=== PATIENT | female | born 1970 | race Caucasian/White ===

== ENCOUNTER 2016-08-04 16:08 | Emergency (ER) | payer MEDICARE ==
[~2016-08-04 16:08] MED LIST: CIPR-225 PO
== END 2016-08-04 16:43 | disposition left against medical advice (07) ==
LOC: EDUNIT# 16:08 → ER 16:10
DX: R10.30 Lower abdominal pain, unspecified (principal); Z53.21 Procedure and treatment not carried out due to patient leaving prior to being seen by health care provider

== ENCOUNTER 2017-04-19 18:15 | Emergency (ER) | payer MEDICARE, MEDICAID ==
[~2017-04-19] VITALS: Ht 160 cm; Wt 96.2 kg
--- OUTSIDE RECORDS SUMMARY | 2017-04-19 18:21 | XMS REPORT | Continuity Of Care Document ---
Author Author [facility] Organization [facility] Address [address] [place] [address] Phone Care Team Providers Care Hot Air Furnace Installer Repairer Name Role Phone Unavailable Unavailable AMIRAH LORENZO, SAMARA Mendez AT Results Results No results recorded. Allergies and Adverse Reactions Allergies and Adverse Reactions Patient Unit Number: [id number] No allergies recorded. Problem List Problem List No problem list recorded. Plan of Care Plan Of Care Visit/Account #[id number] (April 08, 2017 3:26pm - April 08, 2017 4:08pm) Patient Instructions Wear orthopedic shoe whenever you're. Stay off your feet as much as possible. Keep foot elevated whenever you're seated. Apply ice for 15 minutes 3 times a day. Take anti-inflammatory as prescribed. Vital Signs Vital Signs No Vital Signs Data. Functional Status Functional and Cognitive Status No Functional Status Data Medications Discharge Medications - Medications that patient should continue to take. Review with physician Visit/Account #[id number] (April 08, 2017 3:26pm - April 08, 2017 4:08pm) Medication Route Sig/Schedule Precondition/Indication Comments/Instructions Codes NAPROSYN(NAPROXEN) 500 MG TABLET Dose: 500 MG ORAL BID PAIN NAPROSYN (NAPROXEN) [facility]: [id number] History Of Encounters Encounters Visit/Account #[id number] (April 08, 2017 3:26pm - April 08, 2017 4:08pm) Account Status Physican Of Record Reason For Visit Visit Diagnosis Start Date/Time Stop Date/Time ER SAMARA MACARIO MD R FOOT INJURY Not Available Apr 08, 2017 3:26pm Apr 08, 2017 4:08pm History of Procedures Procedure List No procedures recorded. Discharge Instructions Discharge Instructions Visit/Account #[id number] (April 08, 2017 3:26pm - April 08, 2017 4:08pm) DISCHARGE INSTRUCTIONS Physician Documentation Social History Social History No Social History Data. Immunizations Immunizations Patient Unit Number: [id number] Immunizations No immunizations recorded.
--- OUTSIDE RECORDS SUMMARY | 2017-04-19 18:21 | XMS REPORT ---
Author Author OFELIA ALCARAZ [facility] eClinicalWorks Address Unknown Phone Unavailable Care Team Providers Care Mult Au Matic Operator Name Role Phone OFELIA ALCARAZ CP Unavailable Allergies, Adverse Reactions, Alerts Substance Reaction Event Type Sulfamethoxazole-Trimethoprim Info Not Available Drug Allergy Penicillin V Potassium Info Not Available Drug Allergy Problems Problem Type Condition Code Onset Dates Condition Status Assessment Environmental allergies Z91.09 Active Assessment Drug abuse and dependence F19.20 Active Assessment Hypercholesterolemia E78.0 Active Problem Environmental allergies Z91.09 Active Problem Essential hypertension I10 Active Problem Hypercholesterolemia E78.0 Active Assessment Bipolar disorder with depression F31.30 Active Assessment Essential hypertension I10 Active Problem Bipolar disorder with depression F31.30 Active Problem Drug abuse and dependence F19.20 Active Medications Medication Code System Code Instructions Start Date End Date Status Dosage Atorvastatin Calcium [facility] [address]-78 10 mg Orally Once a day January 10, 2016 1 tablet Lisinopril-Hydrochlorothiazide [facility] [address]-46 20-25 MG Orally Once a day January 09, 2016 1 tablet Zyrtec Allergy [facility] [address]-98 10 mg Orally Once a day January 23, 2016 Mar 23, 2016 1 tablet Trazodone HCl [facility] [address]-75 150 MG Orally Once a day 1/2 tablet at bedtime as needed Latuda [facility] [address]-56 40 MG Orally Once a day 1 tablet with food Procedures Procedure Coding System Code Date Office Visit, Est Pt., Level 4 CPT-4 59612 January 23, 2016 Vital Signs Date/Time: January 23, 2016 Cardiac Monitoring Heart Rate 70 bpm Weight 197 lbs Height 63 in Blood Pressure Diastolic 78 mmHg Blood Pressure Systolic 132 mmHg Results No Known Results Summary Purpose eClinicalWorks Submission
--- OUTSIDE RECORDS SUMMARY | 2017-04-19 18:21 | XMS REPORT ---
Author Author REESE CORDOVA [facility] eClinicalWorks Address Unknown Phone Unavailable Care Team Providers Care Print Journalist Name Role Phone REESE CORDOVA CP Unavailable Allergies, Adverse Reactions, Alerts Substance Reaction Event Type Sulfamethoxazole-Trimethoprim Info Not Available Drug Allergy Penicillin V Potassium Info Not Available Drug Allergy Problems Problem Type Condition Code Onset Dates Condition Status Problem Drug abuse and dependence F19.20 Active Assessment COPD with acute exacerbation J44.1 Active Problem Acute serous otitis media of left ear, recurrence not specified H65.02 Active Problem Acute diffuse otitis externa of left ear H60.312 Active Problem COPD with acute exacerbation J44.1 Active Problem Essential hypertension I10 Active Problem Bipolar disorder with depression F31.30 Active Problem Hypercholesterolemia E78.0 Active Problem Environmental allergies Z91.09 Active Medications Medication Code System Code Instructions Start Date End Date Status Dosage Lisinopril-Hydrochlorothiazide [facility] [address]-70 20-25 MG Orally Once a day January 09, 2016 1 tablet Cortisporin [facility] [address]-68 3.5-70488-9 Otic Three times a day January 30, 2016 4 drops into affected ear Keflex [facility] [address]-64 500 MG Orally Twice a day January 30, 2016 Feb 09, 2016 1 capsule Atorvastatin Calcium [facility] [address]-34 10 mg Orally Once a day January 10, 2016 1 tablet Abilify [facility] [address]-54 10 MG Orally Once a day 1 tablet Albuterol Sulfate HFA [facility] [address]-02 108 (90 Base) MCG/ACT Inhalation every 4 hrs PRN SOB, wheezing Feb 04, 2016 2 puffs as needed Ketorolac Tromethamine [facility] [address]-59 10 mg Orally 3 times a day JanuaryFeb 05, 2016 1 tablet as needed Zyrtec Allergy [facility] [address]-28 10 mg Orally Once a day January 23, 2016 Mar 23, 2016 1 tablet Procedures Procedure Coding System Code Date Office Visit, Est Pt., Level 4 CPT-4 06091 Feb 04, 2016 [facility] VISIT ESTABLISHED PATIENT CPT-4 G0467 Feb 04, 2016 Vital Signs Date/Time: Feb 04, 2016 Cardiac Monitoring Heart Rate 96 bpm Weight 206.6 lbs Height 63 in BMI 36.59 Index Blood Pressure Diastolic 73 mmHg Blood Pressure Systolic 152 mmHg Results No Known Results Summary Purpose eClinicalWorks Submission
--- OUTSIDE RECORDS SUMMARY | 2017-04-19 18:21 | XMS REPORT ---
Author Author OFELIA ALCARAZ [facility] Address [address] [place] [address] Care Team Providers Care Custom Shoe Designer And Maker Name Role Phone ROMINA ALCARAZE Unavailable PROBLEMS Type Condition ICD9-CM Code [id number] Code Onset Dates Condition Status SNOMED Code Problem Acute serous otitis media of left ear, recurrence not specified H65.02 Active 604563520 Problem COPD with acute exacerbation J44.1 Active 986997857 Problem Acute diffuse otitis externa of left ear H60.312 Active 86918077 Problem Hyperlipidemia, unspecified hyperlipidemia type E78.5 Active 17052039 Problem Simple chronic bronchitis J41.0 Active 16769141 Problem Primary insomnia F51.01 Active 3145832 Problem Phlebitis I80.9 Active 03115518 Problem Nausea and vomiting, intractability of vomiting not specified, unspecified vomiting type R11.2 Active 02310730 Problem Open wound anterior abdominal wall, initial encounter S31.109A Active 799372483 Problem Bipolar disorder with depression F31.30 Active 08211257 Problem Drug abuse and dependence F19.20 Active 6890665 Problem Essential hypertension I10 Active 96423901 Problem Pure hypercholesterolemia E78.00 Active 257962525 Problem Environmental allergies Z91.09 Active 663242449 ALLERGIES Substance Reaction Event Type Date Status Sulfamethoxazole-Trimethoprim Unknown Drug Allergy Jul, Active Penicillin V Potassium Unknown Drug Allergy Jul, Active SOCIAL HISTORY No smoking Hx information available PLAN OF CARE Activity Details Follow Up 2 Weeks Reason:diaerrhea Pending Test ROTAVIRUS, STOOL Pending Test CULTURE, STOOL Pending Test STOOL (O & P) Pending Test GIARDIA, STOOL Pending Test STOOL (C-DIFF) VITAL SIGNS Height 63 in 2016-07-24 Weight 219.2 lbs 2016-07-24 Temperature 98.3 degrees Fahrenheit 2016-07-24 Heart Rate 108 bpm 2016-07-24 Respiratory Rate 20 2016-07-24 BMI 38.83 kg/m2 2016-07-24 Blood pressure systolic 142 mmHg 2016-07-24 Blood pressure diastolic 91 mmHg 2016-07-24 MEDICATIONS Medication Instructions Dosage Frequency Start Date End Date Duration Status Atorvastatin Calcium 10 mg Orally Once a day, voucher 1st fill 1 tablet 30 Active Amitriptyline HCl 10 mg Orally Once a day 3 capsules 24h Active Lisinopril-Hydrochlorothiazide 20-25 MG Orally Once a day, voucher 1st fill 1 tablet 30 Active Colestid 1 GM Orally Once a day 2 tablets 24h Jul, 30 day(s) Active immodium 1 tab Active Albuterol Sulfate HFA 108 (90 Base) MCG/ACT Inhalation every 4 hrs PRN SOB, wheezing 2 puffs as needed Feb, Active RESULTS Name Result Date Reference Range TEST, URINE (IN HOUSE) 2016-07-24 RESULTS Negative Lot # [id number] Control + Exp date UA LONG DIP (IN HOUSE) 2016-07-24 Lot # [id number] Exp date Clarity Clear Color Yellow Odor No GLU Negative ASHISH Negative KET Negative SG >=1.030 BLO Negative pH 5.5 Protein Negative URO 0.2 NIT Negative CHRISTINA Trace Lot # [id number] Exp date 02/2017 CULTURE, URINE 2016-07-24 Urine Culture, Routine Final report Result 1 No growth PROCEDURES Procedure Date Ordered Related Diagnosis [facility] GIARDIA AG, EIA Jul 24, 2016 URINE TEST Jul 24, 2016 URINALYSIS, AUTO, W/O SCOPE Jul 24, 2016 ROTAVIRUS AG, EIA Jul 24, 2016 Office Visit, Est Pt., Level 4 Jul 24, 2016 [facility] VISIT ESTABLISHED PATIENT Jul 24, 2016 IMMUNIZATIONS No Known Immunizations
--- OUTSIDE RECORDS SUMMARY | 2017-04-19 18:21 | XMS REPORT | Continuity of Care Document ---
Author Author [facility] Address Unknown Phone Unavailable Care Team Providers Care Production Crew Supervisor Name Role Phone KILEY Angela Unavailable Unavailable Insurance Providers Payer Name Policy Number Subscriber Name Relationship MCR Medicare [id number] TERRI HAWKINS PATIENT/SELF [facility] [id number] TERRI HAWKINS PATIENT/SELF Advance Directives Directive Response Recorded Date/Time Advance Directive Information: AD BROCHURE GIVEN TO PT 03/28/15 3:29pm Chief Complaint and Reason for Visit Reason for Visit Infestation by Sarcoptes scabiei Problems Medical Problems Problem Onset Date Status TMJ arthralgia Unknown Active Headache Unknown Active Migraine headache Unknown Active Sinusitis Unknown Active Methamphetamine dependence Unknown Active Otitis media Unknown Active Shoulder sprain Unknown Active Neck sprain Unknown Active Scabies infestation Unknown Active Medications Medication Dose Route Sig Days/Qty Instructions Order Date Discontinued Date Status Olanzapine 10 MG TABLET OPHTHALMIC Bedtime 12/13/13 Discontinued Atenolol (Tenormin) 25 MG TABLET OPHTHALMIC MORNING TAKE WITH SIP OF WATER AM OF PROCEDURE Active Lisinopril/Hydrochlorothiazide (Lisinopril-Hctz 20-25 MG Tab) 1 EACH TABLET OPHTHALMIC MORNING TAKE WITH SIP OF WATER AM OF PROCEDURE Active Fluoxetine (Prozac) 10 MG TAB OPHTHALMIC MORNING 12/13/13 Discontinued Simvastatin* (Zocor*) 10 MG TABLET 10 MG OPHTHALMIC Bedtime Discontinued Lurasidone HCl (Latuda) 40 MG TABLET 40 MG OPHTHALMIC Bedtime 01/17 Discontinued Quetiapine* (Seroquel*) 12.5 MG HALFTAB 25 MG Bedtime 09/09/14 Discontinued Clonidine (Catapres) 0.1 MG TAB 0.1 MG OPHTHALMIC 09/09/14 Discontinued [ABILIFY] 400 MONTHLY MONTHLY INJECTION Active Azithromycin* (Zithromax*) 250 MG TAB 250 MG OPHTHALMIC DIRECTED 6 Qty TAKE 2 TABLETS ONCE DAILY FOR 1 DAY, THEN 1 TABLET ONCE DAILY FOR 4 DAYS. 02/04 Active Cyclobenzaprine (Flexeril Tab) 10 MG TAB 1 TAB OPHTHALMIC Q8H PRN PRN PAIN 15 Qty 03/20/15 Active Permethrin (Nix) 60 ML LIQUID 60 ML TOPICAL ONE TIME ONLY 1 Days Active Diphenhydramine (Benadryl) 25 MG CAP 25 MG OPHTHALMIC THREE TIMES DAILY 15 Qty 03/28/15 Active Ranitidine (Zantac) 75 MG TABLET 150 MG OPHTHALMIC TWICE DAILY 5 Days 03/28/15 Active Prednisone 10 MG UD.TAB 2 TAB OPHTHALMIC TWICE DAILY 20 Qty 03/28/15 Active Social History Social History Problem Response Recorded Date/Time Alcohol Use occasionally 01/07/14 8:26pm Drug Use clean for 45 days, getting ready to go to treatment. 03/20/15 1:31pm Hospital Discharge Instructions No hospital discharge instructions. Plan of Care Discharge Date 03/28/15 4:15pm Disposition NURSING HOME Condition at Discharge Stable Instructions/Education Provided DI for Scabies Prescriptions See Medications Section Referrals Jodi Angela APRN Additional Instructions/Education TAKE MEDS RX'D. KEEP THE NIX LOTION ON FOR 24 HRS WITHOUT BATHING OR SHOWERING, THEN REPEAT IN 1 WEEK. FOLLOW UP WITH PCP OR [facility], RETURN IF WORSE OR NEEDED Care Plan and Goals Problem: Skin Integrity Issue Goal: Rule out or identify any skin integrity issue. Relief of pain, discomfort. Plan: Refer to patient instructions provided. Functional Status No functional status results. Allergies, Adverse Reactions, Alerts Allergen Type Severity Reaction Status Last Updated PENICILLINS Allergy Unknown HIVES, THROAT SWELLING Active 09/09/14 SULFA (SULFONAMIDE ANTIBIOTICS) Allergy Unknown HIVES Active 09/09/14 INFLUENZA VIRUS VACC,SPECIFIC Allergy Unknown Active 09/09/14 SHELLFISH DERIVED Allergy Unknown Active 09/09/14 FLU SHOT AdvReac Unknown "DEATHLY SICK" Active 12/10/12 Immunizations Name Date Given Type *Flu Shot: None Historical *Tetanus Shot: Unknown Historical Vital Signs Vital Reading Collection Date/Time Result Blood Pressure 03/28/15 3:29pm 148/91 Patient Temperature 03/28/15 3:29pm 98.7 Temperature Source 03/28/15 3:29pm TEMP Respiratory Rate 03/28/15 3:29pm 18 Pulse Rate 03/28/15 3:29pm 85 Bedside Pulse Oximetry 03/28/15 3:29pm 98 Height 03/28/15 3:29pm 5 ft 3 in Weight 03/28/15 3:29pm 160 lb Body Mass Index 03/28/15 3:29pm 28.3 Procedures No Known History of Procedures. Results Test Source Date Result Interp. Ref. Range Comments Basophils # 02/04/15 0.1 10^3/uL 0.0 - 0.2 Basophils % 02/04/15 0.6 % 0.0 - 2.0 Eosinophils # 02/04/15 0.3 10^3/uL 0.0 - 0.4 Eosinophils % 02/04/15 2.5 % 0.0 - 6.0 Hematocrit 02/04/15 38.9 % 36 - 48 Hemoglobin 02/04/15 12.7 g/dl 12.0 - 16.0 Lymphocytes # 02/04/15 3.5 10^3/uL H 1.0 - 3.0 Lymphocytes % 02/04/15 30.7 % 15.0 - 45.0 Mean Corpuscular Hemoglobin 02/04/15 28.2 pg 25.0 - 34.0 Mean Corpuscular Hemoglobin Concent 02/04/15 32.6 g/dL 31.0 - 36.0 Mean Corpuscular Volume 02/04/15 86.5 fL 79 - 99 Mean Platelet Volume 02/04/15 9.6 fL 7.0 - 11.0 Monocytes # 02/04/15 1.1 10^3/uL H 0.0 - 1.0 Monocytes % 02/04/15 9.3 % 1.0 - 12.0 Neutrophils # 02/04/15 6.5 10^3/uL 1.0 - 8.0 Neutrophils % 02/04/15 56.9 % 43.0 - 72.0 Platelet Count 02/04/15 385 10^3/uL 130 - 400 Red Blood Count 02/04/15 4.50 10^6/uL 3.50 - 5.40 Red Cell Distribution Width 02/04/15 14.2 % 11.0 - 15.0 White Blood Count 02/04/15 11.4 10^3/uL H 4.5 - 11.0 Alanine Aminotransferase (ALT/SGPT) 02/04/15 18 U/L 12 - 78 Albumin 02/04/15 3.6 g/dl 3.3 - 4.5 Albumin/Globulin Ratio 02/04/15 1.1 0.7 - 2.0 Alkaline Phosphatase 02/04/15 62 U/L 46 - 116 Anion Gap 02/04/15 8 mmol/L 8 - 16 Aspartate Amino Transf (AST/SGOT) 02/04/15 16 U/L 6 - 37 Blood Urea Nitrogen 02/04/15 12 mg/dl 5 - 21 Calcium Level 02/04/15 8.2 mg/dl L 8.6 - 10.5 Carbon Dioxide Level 02/04/15 29 meq/L 21 - 33 Chloride Level 02/04/15 103 mmol/L 100 - 112 Creatinine 02/04/15 0.75 mg/dl 0.60 - 1.30 Glomerular Filtration Rate Calc 02/04/15 > 60 mL/Min > 60 - Glucose Level 02/04/15 79 mg/dl 70 - 99 Potassium Level 02/04/15 3.6 mmol/L 3.4 - 5.2 Sodium Level 02/04/15 140 mmol/L 135 - 150 Total Bilirubin 02/04/15 0.5 mg/dl 0.0 - 1.2 Total Protein 02/04/15 6.8 g/dl 6.4 - 8.2 Creatine Kinase MB 02/04/15 0.9 ng/ml 0.0 - 3.6 Troponin I 02/04/15 < 0.02 ng/ml 0.00 - 0.05 Encounters Encounter Location Date/Time Departed Emergency [facility] 03/28/15 4:15pm Departed Emergency [facility] 03/20/15 3:12pm Departed Emergency [facility] 02/04/15 5:15pm Recent Diagnosis Infestation by Sarcoptes scabiei
--- OUTSIDE RECORDS SUMMARY | 2017-04-19 18:21 | XMS REPORT ---
Author Author OFELIA ALCARAZ Organization [facility] Address [address] [place] [address] Care Team Providers Care Capping Machine Operator Name Role Phone MARK ALCARAZNETTE Unavailable PROBLEMS Type Condition ICD9-CM Code [id number] Code Onset Dates Condition Status SNOMED Code Problem Acute diffuse otitis externa of left ear H60.312 Active 92267771 Problem COPD with acute exacerbation J44.1 Active 186383599 Problem Acute serous otitis media of left ear, recurrence not specified H65.02 Active 277431751 Problem Hyperlipidemia, unspecified hyperlipidemia type E78.5 Active 13022519 Problem Simple chronic bronchitis J41.0 Active 51871792 Problem Primary insomnia F51.01 Active 8194059 Problem Phlebitis I80.9 Active 45741870 Problem Nausea and vomiting, intractability of vomiting not specified, unspecified vomiting type R11.2 Active 04678655 Problem Open wound anterior abdominal wall, initial encounter S31.109A Active 192760813 Problem Drug abuse and dependence F19.20 Active 7343271 Problem Bipolar disorder with depression F31.30 Active 90372572 Problem Essential hypertension I10 Active 10762165 Problem Pure hypercholesterolemia E78.00 Active 047979958 Problem Environmental allergies Z91.09 Active 046706701 ALLERGIES No Known Allergies SOCIAL HISTORY No smoking Hx information available PLAN OF CARE VITAL SIGNS MEDICATIONS No Known Medications RESULTS No Results PROCEDURES No Known procedures IMMUNIZATIONS No Known Immunizations
--- OUTSIDE RECORDS SUMMARY | 2017-04-19 18:21 | XMS REPORT ---
Author Author OFELIA ALCARAZ [facility] eClinicalWorks Address Unknown Phone Unavailable Care Team Providers Care Ski Base Trimmer Name Role Phone OFELIA ALCARAZ Unavailable Allergies No Known Allergies Problems Problem Type Condition Code Onset Dates Condition Status Problem Bipolar disorder with depression F31.30 Active Problem Drug abuse and dependence F19.20 Active Problem Essential hypertension I10 Active Medications Medication Code System Code Instructions Start Date End Date Status Dosage Atorvastatin Calcium [facility] [address]-42 10 mg Orally Once a day January 10, 2016 1 tablet Results No Known Results Summary Purpose eClinicalWorks Submission
--- OUTSIDE RECORDS SUMMARY | 2017-04-19 18:22 | XMS REPORT ---
Author Author OFELIA ALCARAZ [facility] eClinicalWorks Address Unknown Phone Unavailable Care Team Providers Care Carpet Installation Specialist Name Role Phone OFELIA ALCARAZ Unavailable Allergies No Known Allergies Problems Problem Type Condition Code Onset Dates Condition Status Problem Acute diffuse otitis externa of left ear H60.312 Active Problem Hypercholesterolemia E78.0 Active Problem Acute serous otitis media of left ear, recurrence not specified H65.02 Active Problem Bipolar disorder with depression F31.30 Active Problem Drug abuse and dependence F19.20 Active Problem Environmental allergies Z91.09 Active Problem Essential hypertension I10 Active Medications Medication Code System Code Instructions Start Date End Date Status Dosage Ketorolac Tromethamine [facility] [address]-84 10 mg Orally 3 times a day JanuaryFeb 05, 2016 1 tablet as needed Results No Known Results Summary Purpose eClinicalWorks Submission
--- OUTSIDE RECORDS SUMMARY | 2017-04-19 18:22 | XMS REPORT ---
Author Author OFELIA ALCARAZ [facility] eClinicalWorks Address Unknown Phone Unavailable Care Team Providers Care Process Control Specialist Name Role Phone OFELIA ALCARAZ Unavailable Allergies No Known Allergies Problems Problem Type Condition Code Onset Dates Condition Status Problem Environmental allergies Z91.09 Active Problem Essential hypertension I10 Active Problem Hypercholesterolemia E78.0 Active Problem Bipolar disorder with depression F31.30 Active Problem Drug abuse and dependence F19.20 Active Medications Medication Code System Code Instructions Start Date End Date Status Dosage Ibuprofen [facility] [address]-09 800 MG Orally Three times a day January 28, 2016 Feb 27, 2016 1 tablet Results No Known Results Summary Purpose eClinicalWorks Submission
--- OUTSIDE RECORDS SUMMARY | 2017-04-19 18:22 | XMS REPORT ---
Author Author TABBY TORRES [facility] Address [address] [place] [address] Care Team Providers Care Guard Rail Installer Name Role Phone TABBY TORRES Unavailable PROBLEMS Type Condition ICD9-CM Code [id number] Code Onset Dates Condition Status SNOMED Code Problem Acute diffuse otitis externa of left ear H60.312 Active 37044890 Problem COPD with acute exacerbation J44.1 Active 236334680 Problem Acute serous otitis media of left ear, recurrence not specified H65.02 Active 902964343 Problem Hyperlipidemia, unspecified hyperlipidemia type E78.5 Active 64690004 Problem Simple chronic bronchitis J41.0 Active 46347450 Problem Primary insomnia F51.01 Active 6211625 Problem Phlebitis I80.9 Active 49461429 Problem Nausea and vomiting, intractability of vomiting not specified, unspecified vomiting type R11.2 Active 97273522 Problem Open wound anterior abdominal wall, initial encounter S31.109A Active 354780171 Problem Drug abuse and dependence F19.20 Active 4260416 Problem Bipolar disorder with depression F31.30 Active 51208044 Problem Essential hypertension I10 Active 37880545 Problem Pure hypercholesterolemia E78.00 Active 150044795 Problem Environmental allergies Z91.09 Active 266211441 ALLERGIES Substance Reaction Event Type Date Status Sulfamethoxazole-Trimethoprim Unknown Drug Allergy Jun, Active Penicillin V Potassium Unknown Drug Allergy Jun, Active SOCIAL HISTORY No smoking Hx information available PLAN OF CARE Activity Details Follow Up prn Reason: VITAL SIGNS Height 63 in 2016-06-17 Weight 221.7 lbs 2016-06-17 Temperature 98.2 degrees Fahrenheit 2016-06-17 Heart Rate 96 bpm 2016-06-17 Respiratory Rate 20 2016-06-17 BMI 39.27 kg/m2 2016-06-17 Blood pressure systolic 122 mmHg 2016-06-17 Blood pressure diastolic 68 mmHg 2016-06-17 MEDICATIONS Medication Instructions Dosage Frequency Start Date End Date Duration Status Abilify 10 mg Orally Once a day, voucher 1st fill 1 tablet Active Doxycycline Hyclate 100 MG Orally every 12 hrs, voucher 1 capsule 05 JunJun, 10 days Active Atorvastatin Calcium 10 mg Orally Once a day, voucher 1st fill 1 tablet 30 Active Lisinopril-Hydrochlorothiazide 20-25 MG Orally Once a day, voucher 1st fill 1 tablet 30 Active RESULTS Name Result Date Reference Range TEST, URINE (IN HOUSE) 2016-06-17 RESULTS Negative Lot # [id number] Control + Exp date 09/2017 UA LONG DIP (IN HOUSE) 2016-06-17 Lot # [id number] Exp date 05/2017 Clarity clear Color yellow Odor no GLU negative ASHISH negative KET negative SG 1.020 BLO negatie pH 7.5 Protein negative URO 0.2 NIT negatove CHRISTINA 1+ Lot # Exp date PROCEDURES Procedure Date Ordered Related Diagnosis Body Site URINALYSIS, AUTO, W/O SCOPE Jun 17, 2016 URINE TEST Jun 17, 2016 Office Visit, Est Pt., Level 3 Jun 17, 2016 [facility] VISIT ESTABLISHED PATIENT Jun 17, 2016 IMMUNIZATIONS No Known Immunizations
--- NOTE | 2017-04-19 18:45 | ED Lower Extremity ---
General Chief Complaint: Lower Extremity Stated Complaint: FALL OFF CURB/R FOOT PAIN Source: patient History of Present Illness Time seen by provider: 18:35 Initial Comments PT ARRIVES VIA POV C/O RIGHT FOOT AND ANKLE PAIN STATES SHE "FELL OFF A CURB" AT 0800 THIS AM--WEARING "FLIP FLOPS" AT THE TIME C/O PAIN TO MEDIAL ASPECT OF RIGHT ANKLE AND THE ARCH OF RIGHT FOOT--UNABLE TO BEAR WEIGHT ON RIGHT FOOT NO OTHER INJURIES NO PRIOR INJURY TO THIS FOOT / ANKLE OTHER THAN MINOR SPRAINS NO PARESTHESIAS OR MOTOR DEFICITS PCP: KATHYA-MARIBEL Allergies and Home Medications Allergies Coded Allergies: Penicillins (Verified Allergy, Unknown, 07/01/16) Sulfa (Sulfonamide Antibiotics) (Verified Allergy, Unknown, 07/01/16) Home Medications Lisinopril/Hydrochlorothiazide 1 Each Tablet, 1 EACH PO DAILY, (Reported) Constitutional: no symptoms reported : No LMP: Apr 05, 2017 (S/P BTL) Control/STD Prophylaxis: Other (BTL) Musculoskeletal: see HPI Skin: no symptoms reported Psychiatric/Neurological: No Symptoms Reported Past Bzblqpx-Moeuhw-Xxmeeu Hx Patient Social History Alcohol Use: Past History (HISTORY OF ABUSE, NONE FOR "YEARS" PER PT ON ) Recreational Drug Use: No (DENIES) Smoking Status: Current Everyday Smoker (1 PPD) Type Used: Cigarettes Recent Foreign Travel: No Contact w/Someone Who Travel: No Recent Hopitalizations: No Surgeries History of Surgeries: Yes ( X 2, D&C) Surgeries: Section, Tonsillectomy, Tubal Ligation Respiratory History of Respiratory Disorde: No Cardiovascular History of Cardiac Disorders: Yes Cardiac Disorders: Hypertension Neurological History of Neurological Disord: No Reproductive System : No Hx Reproductive Disorders: No Genitourinary History of Genitourinary Disor: No Gastrointestinal History of Gastrointestinal Di: No Musculoskeletal History of Musculoskeletal Dis: No Endocrine History of Endocrine Disorders: No HEENT History of HEENT Disorders: Yes (S/P TONSILLECTOMY) HEENT Disorders: Tonsilitis Cancer History of Cancer: No Psychosocial History of Psychiatric Problem: No Integumentary History of Skin or Integumenta: No Blood Transfusions History of Blood Disorders: No Physical Exam Vital Signs Vital Sign - Last 12Hours 04/19/17 18:42 Temp 98.1 Pulse 70 Resp 16 B/P (MAP) 161/92 Pulse Ox 98 Capillary Refill : General Appearance: WD/WN, no apparent distress Legs: bilateral leg non-tender, bilateral leg normal inspection, bilateral leg normal range of motion, bilateral leg no evidence of injury Knees: bilateral knee non-tender, bilateral knee normal inspection, bilateral knee normal range of motion, bilateral knee no evidence of injury Ankles: right ankle other (MEDIAL ASPECT OF RIGHT ANKLE WITH MODERATE SWELLING AND TENDERNESS. NO BRUISING NOTED AT THIS TIME. LIMITED ROM DUE TO PAIN ) Feet: right foot other (MODERATE SWELLING AND TENDERNESS TO MEDIAL ASPECT OF RIGHT FOOT AND ARCH OF FOOT, NO BRUISING. LIMITED ROM DUE TO PAIN. DISTAL MOTOR/ SENSORY/VASCULAR INTACT. 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, no motor/sensory deficits, alert, normal mood/affect, oriented x 3 Skin: normal color, warm/dry Splinting and Joint Reduction : Buck wrap: Yes Immobilizers: Step Light Walker s/m/lg Ordered: Crutches Progress/Results/Core Measures Results/Orders My Orders Orders - TINO DE LA PAZ DO Foot, Right, 3 View (04/19/17 18:40) Ankle, Right, 3 Views (04/19/17 18:40) Ct Extremity Lower Right Wo (04/19/17 18:58) Ketorolac Injection (Toradol Injection) (04/19/17 19:15) Medications Given in ED Current Medications Medications Dose Ordered Sig/Stephenie Route Start Time Stop Time Status Last Admin Dose Admin Ketorolac Tromethamine 60 mg ONCE ONCE IM 04/19/17 19:15 04/19/17 19:16 DC 04/19/17 19:26 60 MG Vital Signs/I&O Vital Sign - Last 12Hours 04/19/17 18:42 Temp 98.1 Pulse 70 Resp 16 B/P (MAP) 161/92 Pulse Ox 98 Diagnostic Imaging Comments XRAYS RIGHT FOOT AND ANKLE--DEGENERATIVE CHANGES, NO FRACTURE OR DISLOCATION CT RIGHT FOOT AND ANKLE--DEGENERATIVE CHANGES, NO FRACTURE OR DISLOCATION PER RADIOLOGIST REPORTS @ 1938 Reviewed: Reviewed by Me Departure Impression Impression: Primary Impression: RIGHT FOOT AND ANKLE SPRAIN Disposition: HOME, SELF-CARE Condition: Stable Departure-Patient Inst. Referrals: [facility] (PCP/Family) Primary Care Physician Patient Instructions: Ankle Sprain (DC), Going Up and Down Curbs or Stairs With a Walker or Crutches, How to Use Crutches, SPLINT CARE Add. Discharge Instructions: ICE TO SORE AREAS AT 20 MINUTE INTERVALS BUCK WRAP, WALKING BOOT AND CRUTCHES NEEDED FOR COMFORT ELEVATE FOOT MUCH POSSIBLE FOLLOW UP WITH [facility] IN 1 WEEK IF NO BETTER All discharge instructions reviewed with patient and/or family. Voiced understanding. Scripts Tramadol HCl (Ultram) 50 Mg Tablet 50 MG PO Q4H, #20 TAB Prov: TINO DE LA PAZ DO 04/19/17 Naproxen (Naproxen) 500 Mg Tablet 500 MG PO BID, #20 TAB Prov: TINO DE LA PAZ DO 04/19/17 TINO DE LA PAZ DO Apr 19, 2017 18:45
[2017-04-19] MEDS ORDERED: LISI1TAB10 PO (19:02)
--- NOTE | 2017-04-19 19:11 | Diagnostic Imaging Report ---
INDICATION: Right foot pain. COMPARISON: None. FINDINGS: Three views of the right foot demonstrate no fracture or dislocation. Articular surfaces are normal. Calcaneal osteophytosis is seen. There is no foreign body. IMPRESSION: No fracture or dislocation. Dictated by: Dictated on workstation # [id number]
[2017-04-19] MEDS ORDERED: KETOROLAC 60 MG/2 ML VIAL IM ONE (19:15)
--- NOTE | 2017-04-19 19:25 | Diagnostic Imaging Report ---
INDICATION: Right ankle pain, injury. COMPARISON: None. EXAMINATION: Three views of the right ankle were obtained. FINDINGS: No fracture or dislocation. Minimal degenerative changes are seen involving the ankle mortise. No osseous lesion is seen. Soft tissue swelling is seen overlying the medial malleolus. IMPRESSION: No acute fracture or dislocation. Dictated by: Dictated on workstation # [id number]
--- NOTE | 2017-04-19 19:36 | Diagnostic Imaging Report ---
PROCEDURE: CT right lower extremity without contrast. TECHNIQUE: Axially acquired CT was obtained through the right lower extremity without intravenous contrast. Coronal and sagittal reformations were also performed. INDICATION: Possible ankle fracture, medial ankle pain, trauma. COMPARISON: Plain film from same day. FINDINGS: Mild soft tissue swelling is present. There is some mild degenerative joint disease of the ankle mortise with nonacute extraosseous ossicles inferior to the medial malleolus. No distinct fracture line is identified. There is no dislocation. Soft tissue injury is not excluded. IMPRESSION: Degenerative joint disease without underlying fracture or dislocation. Dictated by: Dictated on workstation # [id number]
[2017-04-19] MEDS ORDERED: NAPR500T3 PO (19:42)
[2017-04-19] MEDS ORDERED: RX-NAPROXEN (NAPROSYN) 250 MG TAB PPK#4 PO STA (19:42)
[2017-04-19] MEDS ORDERED: RX-TRAMADOL 50 MG (ULTRAM) TAB PPK#4 PO STA (19:42)
[2017-04-19] MEDS ORDERED: TRAM-42 PO (19:42)
[2017-04-19 20:35] VITALS: BP 0/0
== END 2017-04-19 20:35 | disposition home or self-care (01) ==
LOC: EDUNIT# 18:15 → ER 18:17
DX: S93.401A Sprain of unspecified ligament of right ankle, initial encounter (principal); I10 Essential (primary) hypertension; F17.210 Nicotine dependence, cigarettes, uncomplicated; Z90.89 Acquired absence of other organs; Z98.51 Tubal ligation status; Z87.59 Personal history of other complications of pregnancy, childbirth and the puerperium; W10.1XXA Fall (on)(from) sidewalk curb, initial encounter
CPT/HCPCS: 73610; 73630; 73700; 99284

== ENCOUNTER 2017-06-01 11:09 | Emergency (ER) | payer MEDICARE, MEDICAID ==
[~2017-06-01] VITALS: Ht 160 cm; Wt 95.3 kg
[~2017-06-01 11:09] MED LIST changes: +LISI1TAB10 PO; +NAPR500T4 PO; +TRAM-42 PO
--- OUTSIDE RECORDS SUMMARY | 2017-06-01 11:16 | XMS REPORT ---
Author Author GERONIMO LAGUNAS [facility] Address [address] [place] [address] Care Team Providers Care Nip Wrapper Name Role Phone GERONIMO LAGUNAS Unavailable PROBLEMS Type Condition ICD9-CM Code SXM81-QX Code Onset Dates Condition Status SNOMED Code Problem Acute serous otitis media of left ear, recurrence not specified H65.02 Active 321307875 Problem COPD with acute exacerbation J44.1 Active 791487474 Problem Acute diffuse otitis externa of left ear H60.312 Active 62826488 Problem Hyperlipidemia, unspecified hyperlipidemia type E78.5 Active 41362446 Problem Simple chronic bronchitis J41.0 Active 22480157 Problem Primary insomnia F51.01 Active 4312680 Problem Phlebitis I80.9 Active 01945806 Problem Nausea and vomiting, intractability of vomiting not specified, unspecified vomiting type R11.2 Active 11435130 Problem Open wound anterior abdominal wall, initial encounter S31.109A Active 137060130 Problem Bipolar disorder with depression F31.30 Active 67954478 Problem Drug abuse and dependence F19.20 Active 2002557 Problem Essential hypertension I10 Active 78508699 Problem Pure hypercholesterolemia E78.00 Active 245017104 Problem Environmental allergies Z91.09 Active 218078386 ALLERGIES Substance Reaction Event Type Date Status Sulfamethoxazole-Trimethoprim Unknown Drug Allergy November, Active Penicillin V Potassium Unknown Drug Allergy November, Active SOCIAL HISTORY Never Assessed PLAN OF CARE Activity Details Follow Up prn Reason: VITAL SIGNS Height 63 in 2016-11-12 Weight 219.1 lbs 2016-11-12 Temperature 97.9 degrees Fahrenheit 2016-11-12 Heart Rate 96 bpm 2016-11-12 Respiratory Rate 20 2016-11-12 BMI 38.81 kg/m2 2016-11-12 Blood pressure systolic 158 mmHg 2016-11-12 Blood pressure diastolic 90 mmHg 2016-11-12 MEDICATIONS Medication Instructions Dosage Frequency Start Date End Date Duration Status Simvastatin 40 MG Orally Once a day 1/2 tab 24h Active Albuterol Sulfate HFA 108 (90 Base) MCG/ACT Inhalation every 4 hrs PRN SOB, wheezing 2 puffs as needed Feb, Active Lisinopril-Hydrochlorothiazide 20-25 MG Orally Once a day, voucher 1st fill 1 tablet Active Clindamycin HCl 150 MG Orally every 8 hrs 2 capsules 8h November, November, 5 day(s) Active RESULTS No Results PROCEDURES Procedure Date Ordered Result Body Site ROCEPHIN 500 MG (IM) November 12, 2016 THER/PROPH/DIAG INJ, SC/IM November 12, 2016 [facility] VISIT ESTABLISHED PATIENT November 12, 2016 IMMUNIZATIONS Vaccine Route Administration Date Status ROCEPHIN 500 MG (IM) IM Intramuscular November 12, 2016 Administered MEDICAL (GENERAL) HISTORY Type Description Date Medical History hypertension Medical History IV drug user, currently resident at [facility], until Mar 03, 2016 Medical History heart murmur Medical History Bipolar Medical History PTSD Medical History Borderline Personality Disorder Medical History Borderline schizophrenia Surgical History dilatation and curettage Surgical History section x 2 Surgical History tonsillectomy Surgical History colonoscopy for rectal bleeding, hemorrhoid 2001 Hospitalization History multiple admissions r/t pneumonia Hospitalization History childbirth and surgery
--- NOTE | 2017-06-01 11:39 | ED Headache ---
General Stated Complaint: HEADACHES VISION DISTURBANCE Source: patient Exam Limitations: no limitations History of Present Illness Time seen by provider: 11:37 Initial Comments To ER with reports of frontal headaches intermittently for about 2 weeks. During this same time frame she has had nasal congestion, rhinorrhea, cough. No fevers. Associated with a frontal headaches are vision becomes blurry. She has no history of migraines. She states that these headaches very in duration from a few minutes before resolving spontaneously to persisting all day. She does have associated nausea with this. Timing/Duration: waxing and waning Severity/Quality: moderate Location: frontal Associated Symptoms: No confusion, nasal congestion, nasal drainage, No seizures, sinus infection, No stiff neck, vision changes, No weakness Allergies and Home Medications Allergies Coded Allergies: Penicillins (Verified Allergy, Unknown, 07/01/16) Sulfa (Sulfonamide Antibiotics) (Verified Allergy, Unknown, 07/01/16) Home Medications Lisinopril/Hydrochlorothiazide 1 Each Tablet, 1 EACH PO DAILY, (Reported) Naproxen 500 Mg Tablet, 500 MG PO BID, #20 Prescribed by: TINO DE LA PAZ on 04/19/171941 Tramadol HCl 50 Mg Tablet, 50 MG PO Q4H, #20 Prescribed by: TINO DE LA PAZ on 04/19/171941 Constitutional: see HPI, No chills Eyes: See HPI, Blurred Vision Ears, Nose, Mouth, Throat: no symptoms reported Respiratory: see HPI, cough Genitourinary: no symptoms reported Musculoskeletal: no symptoms reported Skin: no symptoms reported Past Yolpbll-Ahzxld-Gnonpa Hx Patient Social History Type Used: Cigarettes Recent Foreign Travel: No Contact w/Someone Who Travel: No Recent Hopitalizations: No Surgeries History of Surgeries: Yes ( X 2, D&C) Surgeries: Section, Tonsillectomy, Tubal Ligation Respiratory History of Respiratory Disorde: No Cardiovascular History of Cardiac Disorders: Yes Cardiac Disorders: Hypertension Neurological History of Neurological Disord: No Reproductive System Hx Reproductive Disorders: No Genitourinary History of Genitourinary Disor: No Gastrointestinal History of Gastrointestinal Di: No Musculoskeletal History of Musculoskeletal Dis: No Endocrine History of Endocrine Disorders: No HEENT History of HEENT Disorders: Yes (S/P TONSILLECTOMY) HEENT Disorders: Tonsilitis Cancer History of Cancer: No Psychosocial History of Psychiatric Problem: No Integumentary History of Skin or Integumenta: No Blood Transfusions History of Blood Disorders: No Physical Exam Vital Signs Vital Sign - Last 12Hours 06/01/17 11:19 Temp 98.0 Pulse 93 Resp 18 B/P (MAP) 149/111 Pulse Ox 95 O2 Delivery Room Air Capillary Refill : General Appearance: WD/WN, no apparent distress HEENT: PERRL/EOMI, normal ENT inspection, TMs normal, pharynx normal Neck: non-tender, full range of motion Respiratory: no respiratory distress, no accessory muscle use Gastrointestinal: non tender, soft Psychiatric: alert, oriented x 3 Crainal Nerves: normal hearing, normal speech, PERRL Skin: normal color, warm/dry Progress/Results/Core Measures Results/Orders Lab Results Laboratory Tests Test 06/01/17 11:32 Range/Units White Blood Count 15.3 H 4.3-11.0 10^3/uL Red Blood Count 5.10 4.35-5.85 10^6/uL Hemoglobin 14.8 11.5-16.0 G/DL Hematocrit 44 35-52 % Mean Corpuscular Volume 86 80-99 FL Mean Corpuscular Hemoglobin 29 25-34 PG Mean Corpuscular Hemoglobin Concent 34 32-36 G/DL Red Cell Distribution Width 15.0 H 10.0-14.5 % Platelet Count 483 H 130-400 10^3/uL Mean Platelet Volume 11.1 H 7.4-10.4 FL Neutrophils (%) (Auto) 69 42-75 % Lymphocytes (%) (Auto) 21 12-44 % Monocytes (%) (Auto) 7 0-12 % Eosinophils (%) (Auto) 3 0-10 % Basophils (%) (Auto) 0 0-10 % Neutrophils # (Auto) 10.6 H 1.8-7.8 X 10^3 Lymphocytes # (Auto) 3.2 1.0-4.0 X 10^3 Monocytes # (Auto) 1.0 0.0-1.0 X 10^3 Eosinophils # (Auto) 0.4 H 0.0-0.3 10^3/uL Basophils # (Auto) 0.1 0.0-0.1 10^3/uL Neutrophils % (Manual) 74 % Lymphocytes % (Manual) 24 % Monocytes % (Manual) 2 % Eosinophils % (Manual) 0 % Basophils % (Manual) 0 % Band Neutrophils 0 % Blood Morphology Comment NORMAL Urine Color YELLOW Urine Clarity CLEAR Urine pH 5 5-9 Urine Specific [place] 1.010 L 1.016-1.022 Urine Protein NEGATIVE NEGATIVE Urine Glucose (UA) NEGATIVE NEGATIVE Urine Ketones NEGATIVE NEGATIVE Urine Nitrite NEGATIVE NEGATIVE Urine Bilirubin NEGATIVE NEGATIVE Urine Urobilinogen NORMAL NORMAL MG/DL Urine Leukocyte Esterase 2+ H NEGATIVE Urine RBC (Auto) NEGATIVE NEGATIVE Urine RBC NONE /HPF Urine WBC 2-5 /HPF Urine Squamous Epithelial Cells 10-25 H /HPF Urine Renal Epithelial Cells 0-2 /HPF Urine Crystals NONE /LPF Urine Bacteria NEGATIVE /HPF Urine Casts NONE /LPF Urine Mucus NEGATIVE /LPF Urine Culture Indicated NO Sodium Level 137 135-145 MMOL/L Potassium Level 4.3 3.6-5.0 MMOL/L Chloride Level 103 98-107 MMOL/L Carbon Dioxide Level 24 21-32 MMOL/L Anion Gap 10 5-14 MMOL/L Blood Urea Nitrogen 11 7-18 MG/DL Creatinine 0.70 0.60-1.30 MG/DL Estimat Glomerular Filtration Rate > 60 BUN/Creatinine Ratio 16 Glucose Level 127 H 70-105 MG/DL Calcium Level 9.7 8.5-10.1 MG/DL Total Bilirubin 0.5 0.1-1.0 MG/DL Aspartate Amino Transf (AST/SGOT) 14 5-34 U/L Alanine Aminotransferase (ALT/SGPT) 15 0-55 U/L Alkaline Phosphatase 71 40-136 U/L Total Protein 8.2 6.4-8.2 GM/DL Albumin 4.1 3.2-4.5 GM/DL Urine Opiates Screen NEGATIVE NEGATIVE Urine Oxycodone Screen NEGATIVE NEGATIVE Urine Methadone Screen NEGATIVE NEGATIVE Urine Propoxyphene Screen NEGATIVE NEGATIVE Urine Barbiturates Screen NEGATIVE NEGATIVE Ur Tricyclic Antidepressants Screen NEGATIVE NEGATIVE Urine Phencyclidine Screen NEGATIVE NEGATIVE Urine Amphetamines Screen NEGATIVE NEGATIVE Urine Methamphetamines Screen NEGATIVE NEGATIVE Urine Benzodiazepines Screen NEGATIVE NEGATIVE Urine Cocaine Screen NEGATIVE NEGATIVE Urine Cannabinoids Screen NEGATIVE NEGATIVE My Orders Orders - INOCENCIO GARCIA APRN Cbc With Automated Diff (06/01/17 11:36) Comprehensive Metabolic Panel (06/01/17 11:36) Ua Culture If Indicated (06/01/17 11:36) Urine Bedside (06/01/17 11:36) Drug Screen Stat (Urine) (06/01/17 11:36) Ct Head Wo (06/01/17 11:36) Saline Lock/Iv-Start (06/01/17 11:36) Ketorolac Injection (Toradol Injection) (06/01/17 11:45) Prochlorperazine Injection (Compazine In (06/01/17 11:45) Urine Bedside (06/01/17 11:40) Manual Differential (06/01/17 11:32) Chest Pa/Lat (2 View) (06/01/17 12:17) Medications Given in ED Current Medications Medications Dose Ordered Sig/Stephenie Route Start Time Stop Time Status Last Admin Dose Admin Ketorolac Tromethamine 30 mg ONCE ONCE IVP 06/01/17 11:45 06/01/17 11:46 DC 06/01/17 11:42 30 MG Prochlorperazine Edisylate 5 mg ONCE ONCE IV 06/01/17 11:45 06/01/17 11:46 DC 06/01/17 11:43 5 MG Vital Signs/I&O Vital Sign - Last 12Hours 06/01/17 11:19 Temp 98.0 Pulse 93 Resp 18 B/P (MAP) 149/111 Pulse Ox 95 O2 Delivery Room Air Diagnostic Imaging Diagonstic Imaging: CT Plain Films/CT/US/NM/MRI: head Comments NAME: TERRI HAWKINS [facility] REC#: [id number] PT STATUS: REG ER : 1970 PHYSICIAN: INOCENCIO GARCIA APRN ADMIT DATE: 06/01/17/ER Signed Date of Exam:06/01/17 CT HEAD WO PROCEDURE: CT head without contrast. TECHNIQUE: Multiple contiguous axial images were obtained through the brain without the use of intravenous contrast. INDICATION: Headaches and dizziness. COMPARISON: None. FINDINGS: No acute intracranial hemorrhage, mass effect, or edema is seen. Tristan-white junction is preserved. Ventricles appear normal. No focal abnormality is seen. Paranasal sinuses and mastoids are clear as visualized. IMPRESSION: No evidence of an acute intracranial abnormality. Dictated by: Dictated on workstation # [id number] Dict: 06/01/17 1159 Trans: 06/01/17 1209 [id number] Interpreted by: KELVIN WALKER DO Electronically signed by: KELVIN WALKER DO 06/01/17 1209 Departure Impression Impression: Primary Impression: Headache Additional Impression: Sinusitis Disposition: 01 HOME, SELF-CARE Condition: Stable Departure-Patient Inst. Decision time for Depature: 12:56 Referrals: [facility]] (PCP/Family) Primary Care Physician Patient Instructions: NO INSTRUCTIONS GIVEN Add. Discharge Instructions: 1. Return to ER for any concerns 2. Antibiotics as directed 3. See her doctor next week Scripts Cefdinir (Cefdinir) 300 Mg Capsule 300 MG PO BID, #14 CAP Prov: INOCENCIO GARCIA APRN 06/01/17 INOCENCIO GARCIA SPECTACLE TRUER Jun 01, 2017 11:39
[2017-06-01 11:42] LABS: BILIRUBIN,URINE NEGATIVE (NEGATIVE); KETONES,URINE NEGATIVE (NEGATIVE); LEUKOCYTE ESTERASE ,URINE 2+ (NEGATIVE); NITRITE,URINE NEGATIVE (NEGATIVE); PH,URINE 5 (5-9); PROTEIN,URINE NEGATIVE (NEGATIVE); UROBILINOGEN,URINE NORMAL (NORMAL)
[2017-06-01] MEDS ORDERED: PROCHLORPERAZINE 10 MG/2ML INJ (COMPAZINE) IV ONE (11:45)
[2017-06-01] MEDS ORDERED: KETOROLAC 30 MG/ML VIAL IVP ONE (11:45)
[2017-06-01 11:50] LABS: BASOPHILS # (AUTO) 0.1 10^3/uL (0.0-0.1); BASOPHILS % (AUTO) 0 % (0-10); EOSINOPHILS # (AUTO) 0.4 10^3/uL (0.0-0.3); EOSINOPHILS % (AUTO) 3 % (0-10); LYMPHOCYTES # (AUTO) 3.2 X 10^3 (1.0-4.0); LYMPHOCYTES % (AUTO) 21 % (12-44); MEAN CORPUSCULAR HEMOGLOBIN 29 PG (25-34); MEAN CORPUSCULAR HGB CONC 34 G/DL (32-36); MEAN CORPUSCULAR VOLUME 86 FL (80-99); MEAN PLATELET VOLUME 11.1 FL (7.4-10.4); MONOCYTES % (AUTO) 7 % (0-12); NEUTROPHILS # (AUTO) 10.6 X 10^3 (1.8-7.8); NEUTROPHILS % (AUTO) 69 % (42-75); PLATELET COUNT 483 10^3/uL (130-400); WHITE BLOOD COUNT 15.3 10^3/uL (4.3-11.0)
[2017-06-01 11:59] LABS: ALANINE AMINOTRANSFERASE 15 U/L (0-55); ALBUMIN 4.1 GM/DL (3.2-4.5); ANION GAP 10 MMOL/L (5-14); ASPARTATE AMINO TRANSFERASE 14 U/L (5-34); BAND NEUTROPHILS 0 %; BASOPHILS % (MANUAL) 0 %; BILIRUBIN,TOTAL 0.5 MG/DL (0.1-1.0); BLOOD UREA NITROGEN 11 MG/DL (7-18); BUN/CREATININE RATIO 16; CALCIUM 9.7 MG/DL (8.5-10.1); CARBON DIOXIDE 24 MMOL/L (21-32); CHLORIDE 103 MMOL/L (98-107); EOSINOPHILS % (MANUAL) 0 %; GFR ESTIMATED > 60; GLUCOSE 127 MG/DL (70-105); LYMPHOCYTES % (MANUAL) 24 %; NEUTROPHILS % (MANUAL) 74 %; POTASSIUM 4.3 MMOL/L (3.6-5.0); SODIUM 137 MMOL/L (135-145); TOTAL PROTEIN 8.2 GM/DL (6.4-8.2)
[2017-06-01 12:06] LABS: RENAL EPITHELIAL CELLS,URINE 0-2 /HPF
--- NOTE | 2017-06-01 12:09 | Diagnostic Imaging Report ---
PROCEDURE: CT head without contrast. TECHNIQUE: Multiple contiguous axial images were obtained through the brain without the use of intravenous contrast. INDICATION: Headaches and dizziness. COMPARISON: None. FINDINGS: No acute intracranial hemorrhage, mass effect, or edema is seen. Tristan-white junction is preserved. Ventricles appear normal. No focal abnormality is seen. Paranasal sinuses and mastoids are clear as visualized. IMPRESSION: No evidence of an acute intracranial abnormality. Dictated by: Dictated on workstation # [id number]
--- NOTE | 2017-06-01 12:53 | Diagnostic Imaging Report ---
PA and lateral views of the chest. INDICATION: Dizziness and nausea. FINDINGS: The lungs are clear. The heart size is normal. No effusion or pneumothorax. The mediastinum and andreas appear unremarkable. IMPRESSION: Unremarkable exam. Dictated by: Dictated on workstation # [id number]
[2017-06-01] MEDS ORDERED: CEFD300C3 PO (12:57)
[2017-06-01 13:02] VITALS: BP 149/111
== END 2017-06-01 13:03 | disposition home or self-care (01) ==
LOC: EDUNIT# 11:09 → ER 11:12
DX: J32.9 Chronic sinusitis, unspecified (principal); I10 Essential (primary) hypertension; Z90.89 Acquired absence of other organs; Z98.51 Tubal ligation status; Z87.59 Personal history of other complications of pregnancy, childbirth and the puerperium
CPT/HCPCS: 36415; 70450; 71020; 80053; 80306; 81000; 84703; 85007; 85027; 96374; 96375

== ENCOUNTER 2017-08-15 12:39 | Emergency (ER) | payer MEDICARE, MEDICAID ==
[~2017-08-15] VITALS: Ht 152.4 cm; Wt 90.7 kg
[~2017-08-15 12:39] MED LIST changes: +CEFD300C3 PO
--- NOTE | 2017-08-15 13:31 | Diagnostic Imaging Report ---
PROCEDURE: US right lower extremity venous. TECHNIQUE: Multiple real-time grayscale images were obtained over the right lower extremity in various projections. Additional duplex Doppler and color Doppler images were also obtained. INDICATION: Right leg pain and numbness There are no prior studies available for comparison. There is generally good blood flow and compressibility at all levels. There is no evidence for deep venous thrombosis. IMPRESSION: There is no evidence for deep venous thrombosis of the right lower extremity. Dictated by: Dictated on workstation # [id number]
--- NOTE | 2017-08-15 13:38 | ED Lower Extremity ---
General Chief Complaint: Lower Extremity Stated Complaint: R LEG POSS BLOOD CLOT IN CALF Nursing Triage Note: AMB TO ROOM WITH CONCERN SHE MAY HAVE BLOOD CLOT IN R LEG PAIN NEXT TO R KNEE WHEN WALKING. Nursing Sepsis Screen: No Definite Risk Source: patient Exam Limitations: no limitations History of Present Illness Date Seen by Provider: Aug 15, 2017 Time Seen by Provider: 13:00 Initial Comments Here with report of right leg numbness that she reports is along the top of the lower leg on the right and lateral below the knee and above the ankle. Denies any recent injury. She is concerned that she has a blood clot. Reports that it 's worse when lying down and better when walking. Denies bowel or bladder incontinence. Denies numbness between her legs. Able to walk without difficulty and denies weakness. Onset: yesterday Severity: mild Pain/Injury Location: right leg Method of Injury: unknown Modifying Factors: Improves With Rest Allergies and Home Medications Allergies Coded Allergies: Penicillins (Verified Allergy, Unknown, 07/01/16) Sulfa (Sulfonamide Antibiotics) (Verified Allergy, Unknown, 07/01/16) Home Medications Lisinopril/Hydrochlorothiazide 1 Each Tablet, 1 EACH PO DAILY, (Reported) Naproxen 500 Mg Tablet, 500 MG PO BID, #20 Prescribed by: TINO DE LA PAZ on 04/19/171941 Tramadol HCl 50 Mg Tablet, 50 MG PO Q4H, #20 Prescribed by: TINO DE LA PAZ on 04/19/171941 Constitutional: see HPI Respiratory: no symptoms reported Cardiovascular: no symptoms reported Gastrointestinal: see HPI Genitourinary: see HPI Musculoskeletal: see HPI, No back pain, No joint pain, No muscle pain, No muscle stiffness Skin: no symptoms reported Psychiatric/Neurological: See HPI, Numbness, Denies Weakness Past Qixcmdm-Uxcjmb-Gnhmvr Hx Patient Social History Alcohol Use: Denies Use Recreational Drug Use: Yes (USED COCAINE 08/14/17) Smoking Status: Current Everyday Smoker Type Used: Cigarettes Recent Foreign Travel: No Contact w/Someone Who Travel: No Recent Infectious Disease Expo: No Recent Hopitalizations: No Surgeries History of Surgeries: Yes ( X 2, D&C) Surgeries: Section, Tonsillectomy, Tubal Ligation Respiratory History of Respiratory Disorde: No Cardiovascular History of Cardiac Disorders: Yes Cardiac Disorders: Hypertension Neurological History of Neurological Disord: No Reproductive System Hx Reproductive Disorders: No Genitourinary History of Genitourinary Disor: No Gastrointestinal History of Gastrointestinal Di: No Musculoskeletal History of Musculoskeletal Dis: No Endocrine History of Endocrine Disorders: No HEENT History of HEENT Disorders: Yes (S/P TONSILLECTOMY) HEENT Disorders: Tonsilitis Cancer History of Cancer: No Psychosocial History of Psychiatric Problem: No Integumentary History of Skin or Integumenta: No Blood Transfusions History of Blood Disorders: No Physical Exam Vital Signs Vital Signs - First Documented 08/15/17 12:42 Temp 98.2 Pulse 63 Resp 18 B/P (MAP) 16/82 (60) Pulse Ox 98 O2 Delivery Room Air Capillary Refill : Less Than 3 Seconds General Appearance: WD/WN, no apparent distress Cardiovascular: regular rate, rhythm, no murmur Respiratory: lungs clear, normal breath sounds Legs: left leg non-tender, left leg normal inspection, left leg normal range of motion, right leg other (numbness to the anterior lateral aspect of the lower leg from just distal to the knee to the distal third junction. No obvious swelling, redness or deformity noted.) Neurologic/Tendon: normal motor functions, normal tendon functions Neurologic/Psychiatric: alert, oriented x 3 Skin: normal color, warm/dry Progress/Results/Core Measures Results/Orders Vital Signs/I&O Vital Sign - Last 12Hours 08/15/17 12:42 Temp 98.2 Pulse 63 Resp 18 B/P (MAP) 16/82 (60) Pulse Ox 98 O2 Delivery Room Air Blood Pressure Mean: 60 Progress Note : Progress Note Seen and evaluated. Ultrasound ordered. No acute findings on ultrasound. Discharged home with return precautions. Patient verbalize understanding instructions and agreement with plan. Diagnostic Imaging Diagonstic Imaging: Ultrasound Plain Films/CT/US/NM/MRI: leg Comments VIA [facility] [place], [place] NAME: [facility] REC#: [id number] PT STATUS: REG ER : 1970 PHYSICIAN: PADMA KAUR ADMIT DATE: 08/15/17/ER Draft Date of Exam:08/15/17 US VENOUS LOWER EXT RT PROCEDURE: US right lower extremity venous. TECHNIQUE: Multiple real-time grayscale images were obtained over the right lower extremity in various projections. Additional duplex Doppler and color Doppler images were also obtained. INDICATION: Right leg pain and numbness There are no prior studies available for comparison. There is generally good blood flow and compressibility at all levels. There is no evidence for deep venous thrombosis. IMPRESSION: There is no evidence for deep venous thrombosis of the right lower extremity. Dictated on workstation # [id number] Dict: 08/15/17 1328 Trans: 08/15/17 1330 [facility] [id number] Interpreted by: DAMASO MARIEE MD Electronically signed by: Departure Impression Impression: Primary Impression: Numbness of right lower extremity Additional Impression: Sciatica Qualified Codes: M54.31 - Sciatica, right side Disposition: 01 HOME, SELF-CARE Condition: Improved Departure-Patient Inst. Decision time for Depature: 13:39 Referrals: [facility] (PCP/Family) Primary Care Physician Patient Instructions: Paresthesias (DC), Sciatica (DC) Add. Discharge Instructions: All discharge instructions reviewed with patient and/or family. Voiced understanding. You may take ibuprofen 600 mg every 8 hours as needed for pain the next few days and then as needed. Follow-up with your doctor this week for recheck and further evaluation. Return for worse pain, fever, vomiting, weakness, numbness between your legs, problems going to the bathroom or walking, breathing problems or other concerns as needed. Copy Copies To 1: BENNY JONES TIMOTHY D MD Aug 15, 2017 13:38
[2017-08-15 13:44] VITALS: BP 16/82
== END 2017-08-15 13:43 | disposition home or self-care (01) ==
LOC: EDUNIT# 12:39 → ER 12:41
DX: R20.0 Anesthesia of skin (principal); M54.30 Sciatica, unspecified side; I10 Essential (primary) hypertension; F14.90 Cocaine use, unspecified, uncomplicated; F17.210 Nicotine dependence, cigarettes, uncomplicated; Z90.89 Acquired absence of other organs; Z87.59 Personal history of other complications of pregnancy, childbirth and the puerperium; Z98.51 Tubal ligation status; Z88.0 Allergy status to penicillin; Z88.2 Allergy status to sulfonamides
CPT/HCPCS: 99283

== ENCOUNTER 2017-08-24 12:48 | Emergency (ER) | payer MEDICARE, MEDICAID ==
[~2017-08-24] VITALS: Ht 160 cm; Wt 93.0 kg
--- OUTSIDE RECORDS SUMMARY | 2017-08-24 12:56 | XMS REPORT | Continuity of Care Document ---
Author Author [facility] Organization [facility] Address Unknown Phone Unavailable Allergies There is no data. Medications There is no data. Problems Date Dx Coded Attending Type Code Diagnosis Diagnosed By 06/15/2015 ASHLEY GRAVESALL L A [id number] Abdominal Pain 06/15/2015 ELY, JOSE L A 12 Back Pain 06/15/2015 ELY, JOSE L A 143122 Abdominal Pain 06/15/2015 ELY, JOSE L A 12 Back Pain 06/15/2015 ELY, JOSE L A [id number] Abdominal Pain 06/15/2015 ELY, JOSE L A 12 Back Pain 06/15/2015 ELY, JOSE L A [id number] Abdominal Pain 06/15/2015 ELY JOSE L A 12 Back Pain 06/15/2015 ELY, JOSE L A [id number] Abdominal Pain 06/15/2015 ELY, JOSE L A 12 Back Pain 06/15/2015 ELY, JOSE L A [id number] Abdominal Pain 06/15/2015 ELY JOSE L A 12 Back Pain 06/15/2015 ELY JOSE L A R03.0 Elevated blood-pressure reading, without diagnosis of hypertension 06/15/2015 ASHLEY GRAVESALL L A R10.84 Generalized abdominal pain 06/15/2015 ASHLEY GRAVESALL L A S39.012A Strain of muscle, fascia and tendon of lower back, initial encounter Procedures Code Description Performed By Performed On CBC CBC WITH DIFF 06/15/2015 CMETPP COMPREHENSIVE METABOLIC PANEL 06/15/[address] ABDOMEN AND PELVIS W CONTRAST 06/15/2015 LIP LIPASE 06/15/2015 UA URINALYSIS AUTOMATED W MICROSCOPY 06/15/2015 CBC CBC WITH DIFF 06/15/2015 CMETPP COMPREHENSIVE METABOLIC PANEL 06/15/[address] ABDOMEN AND PELVIS W CONTRAST 06/15/2015 LIP LIPASE 06/15/2015 UA URINALYSIS AUTOMATED W MICROSCOPY 06/15/2015 CBC CBC WITH DIFF 06/15/2015 CMETPP COMPREHENSIVE METABOLIC PANEL 06/15/[address] ABDOMEN AND PELVIS W CONTRAST 06/15/2015 LIP LIPASE 06/15/2015 PREGU HCG URINE 06/15/2015 UA URINALYSIS AUTOMATED W MICROSCOPY 06/15/2015 CBC CBC WITH DIFF 06/15/2015 CMETPP COMPREHENSIVE METABOLIC PANEL 06/15/[address] ABDOMEN AND PELVIS W CONTRAST 06/15/2015 LIP LIPASE 06/15/2015 PREGU HCG URINE 06/15/2015 UA URINALYSIS AUTOMATED W MICROSCOPY 06/15/2015 Results Test Result Range URINALYSIS AUTOMATED W MICROSCOPY - 06/15/15 18:23 SPECIMEN CATH BACK COLOR LIGHT YELLOW APPEARANCE CLEAR CLEAR SPECIFIC GRAVITY 1.010 1.005-1.030 PH, URINE 7.0 5.0-9.0 PROTEIN NEGATIVE mg/dL NEGATIVE GLUC NEGATIVE mg/dL NEGATIVE KETONES NEGATIVE mg/dL NEGATIVE BILIRUBIN NEGATIVE NEGATIVE BLOOD NEGATIVE NEGATIVE NITRITE NEGATIVE NEGATIVE UROBILINOGEN NORMAL mg/dL NORMAL LEUKOCYTE ESTERASE NEGATIVE NEGATIVE WBC'S 1 [HPF] 0-4 SQUAMOUS EPITHELIAL CELLS 4 [HPF] 0-1 HCG URINE - 06/15/15 18:23 PREG TEST, URINE NEGATIVE CBC WITH DIFF - 06/15/15 18:35 WBC 12.2 10*3/uL 4.3-10.8 RBC 4.39 10*6/uL 4.20-5.40 HGB 12.5 g/dL 12.0-16.0 HCT 37.1 % 37-47 MCV 85 fL 81-99 MCH 28 pg 26-34 MCHC 34 g/dL 31-37 PLATELET COUNT 423 10*3/uL 150-400 RDWCV 14.8 % 11.5-14.5 DIFF TYPE AUTOMATED DIFF NEUTROPHIL % 69 % 36-66 LYMPHOCYTE % 23 % 24-44 MONOCYTE % 6 % 1-10 EOSINOPHIL % 1 % 0-6 BASOPHIL % 1 % 0-2 ABS. NEUTROPHILS 8.4 10*3/uL 1.55-7.13 ABS. LYMPHOCYTES 2.8 10*3/uL 1.0-4.8 ABS. MONOCYTES 0.8 10*3/uL 0.4-1.08 ABS. EOSINOPHILS 0.2 10*3/uL 0.0-0.65 ABS. BASOPHILS 0.1 10*3/uL 0.0-0.11 ABSOLUTE NUCLEATED RBC 0.00 10*3/uL PERCENT NUCLEATED RBC 0 COMPREHENSIVE METABOLIC PANEL - 06/15/15 18:35 POTASSIUM 4.1 mmol/L 3.5-5.1 CALCIUM 9.2 mg/dL 8.6-10.6 GLUCOSE 140 mg/dL 70-115 BUN 15 mg/dL 8-22 CREATININE 0.8 mg/dL 0.6-1.1 SODIUM 140 mmol/L 136-145 CHLORIDE 103 mmol/L 98-110 CO2 28 mmol/L 22-29 GFR ESTIMATED NOT AFR/AM >60 GFR ESTIMATED IF AFR/AM >60 ALT-SGPT 14 U/L 0-55 AST-SGOT 14 U/L 5-34 TOTAL PROTEIN,SERUM 7.0 g/dL 6-8.3 ALBUMIN 4.0 g/dL 3.6-5.3 ALKALINE PHOSPHATASE 76 U/L 40-150 TOTAL BILIRUBIN 0.3 mg/dL 0.2-1.2 ANION GAP 9 5-15 GLOBULIN, CALCULATED 3.0 g/dL A/G RATIO 1.3 ratio 1-1.8 LIPASE - 06/15/15 18:35 LIPASE 41 U/L 8-78 Encounters ACCT No. Visit Date/Time Discharge Status Pt. Type Provider Facility Loc./Unit Complaint [id number] 06/15/2015 17:50:00 06/15/2015 22:35:00 DIS Emergency JOSE GRAVES [facility] FED [id number] 01/29/2017 13:16:09 01/29/2017 23:59:59 [facility] Outpatient Heraclio Juarez
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
[2017-08-24] MEDS ORDERED: HYDR-757 PO (14:25)
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
[2017-08-24 14:35] VITALS: BP 146/87
== END 2017-08-24 14:35 | disposition home or self-care (01) ==
LOC: EDUNIT# 12:48 → ER 12:51
DX: T81.33XA Disruption of traumatic injury wound repair, initial encounter (principal); S61.411A Laceration without foreign body of right hand, initial encounter; I10 Essential (primary) hypertension; Z88.0 Allergy status to penicillin; Z88.2 Allergy status to sulfonamides; Z87.59 Personal history of other complications of pregnancy, childbirth and the puerperium; Z90.89 Acquired absence of other organs; Z98.51 Tubal ligation status; X58.XXXA Exposure to other specified factors, initial encounter
CPT/HCPCS: 99282

== ENCOUNTER 2017-09-14 13:08 | Emergency (ER) | payer MEDICARE, MEDICAID ==
[~2017-09-14] VITALS: Ht 160 cm; Wt 99.8 kg
[~2017-09-14 13:08] MED LIST changes: +HYDR-757 PO; +NAPR-915 PO; -NAPR500T4 PO
--- OUTSIDE RECORDS SUMMARY | 2017-09-14 13:21 | XMS REPORT | Continuity of Care Document ---
Author Author [facility] Organization [facility] Address Unknown Phone Unavailable Allergies There is no data. Medications There is no data. Problems Date Dx Coded Attending Type Code Diagnosis Diagnosed By 06/15/2015 ASHLEY GRAVESALL L A [id number] Abdominal Pain 06/15/2015 ELY, JOSE L A 12 Back Pain 06/15/2015 ELY, JOSE L A [id number] Abdominal Pain 06/15/2015 ELY, JOSE L A 12 Back Pain 06/15/2015 ELY, JOSE L A [id number] Abdominal Pain 06/15/2015 ELY, JOSE L A 12 Back Pain 06/15/2015 ELY, JOSE L A 070004 Abdominal Pain 06/15/2015 ELY JOSE L A 12 Back Pain 06/15/2015 ELY, JOSE L A [id number] Abdominal Pain 06/15/2015 ELY, JOSE L A 12 Back Pain 06/15/2015 ELY, JOSE L A [id number] Abdominal Pain 06/15/2015 ELY JOSE L A [...] Status Pt. Type Provider Facility Loc./Unit Complaint [id number] 06/15/2015 17:50:00 06/15/2015 22:35:00 DIS Emergency JOSE GRAVES [facility] FED [id number] 01/29/2017 13:16:09 01/29/2017 23:59:59 [facility] Outpatient Heraclio Juarez
[2017-09-14] MEDS ORDERED: NS IV 1000 ML 1,000 ML IV ONE (13:55)
[2017-09-14 14:12] LABS: BASOPHILS % (AUTO) 0 % (0-10); EOSINOPHILS # (AUTO) 0.4 10^3/uL (0.0-0.3); EOSINOPHILS % (AUTO) 4 % (0-10); HEMATOCRIT 40 % (35-52); HEMOGLOBIN 13.4 G/DL (11.5-16.0); LYMPHOCYTES # (AUTO) 2.8 X 10^3 (1.0-4.0); LYMPHOCYTES % (AUTO) 27 % (12-44); MEAN CORPUSCULAR HEMOGLOBIN 29 PG (25-34); MEAN CORPUSCULAR HGB CONC 34 G/DL (32-36); MEAN CORPUSCULAR VOLUME 85 FL (80-99); MONOCYTES # (AUTO) 1.1 X 10^3 (0.0-1.0); MONOCYTES % (AUTO) 10 % (0-12); NEUTROPHILS # (AUTO) 5.9 X 10^3 (1.8-7.8); NEUTROPHILS % (AUTO) 58 % (42-75); PLATELET COUNT 428 10^3/uL (130-400); RED BLOOD COUNT 4.67 10^6/uL (4.35-5.85); RED CELL DISTRIBUTION WIDTH 14.8 % (10.0-14.5); WHITE BLOOD COUNT 10.1 10^3/uL (4.3-11.0)
[2017-09-14 14:31] LABS: ALANINE AMINOTRANSFERASE 16 U/L (0-55); ALKALINE PHOSPHATASE 66 U/L (40-136); BILIRUBIN,TOTAL 0.3 MG/DL (0.1-1.0); BUN/CREATININE RATIO 15; CALCIUM 8.9 MG/DL (8.5-10.1); CARBON DIOXIDE 29 MMOL/L (21-32); CHLORIDE 102 MMOL/L (98-107); CREATININE SERUM 0.67 MG/DL (0.60-1.30); GFR ESTIMATED > 60; GLUCOSE 113 MG/DL (70-105); LIPASE 44 U/L (8-78); POTASSIUM 3.9 MMOL/L (3.6-5.0); SODIUM 138 MMOL/L (135-145); TOTAL PROTEIN 7.2 GM/DL (6.4-8.2)
[2017-09-14 14:40] LABS: BILIRUBIN,URINE NEGATIVE (NEGATIVE); CLARITY,URINE CLEAR; COLOR,URINE YELLOW; GLUCOSE, URINE (UA) NEGATIVE (NEGATIVE); KETONES,URINE NEGATIVE (NEGATIVE); LEUKOCYTE ESTERASE ,URINE 1+ (NEGATIVE); NITRITE,URINE NEGATIVE (NEGATIVE); PH,URINE 7 (5-9); PROTEIN,URINE NEGATIVE (NEGATIVE); UROBILINOGEN,URINE NORMAL (NORMAL)
--- NOTE | 2017-09-14 14:41 | ED Abdominal Pain ---
General Chief Complaint: Abdominal/GI Problems Stated Complaint: STOMACH BLOATED Nursing Triage Note: PT AMBULATED TO ROOM 05 WITHOUT DIFFICULTY. STATES SHE HAS BEEN SEEN AT [facility] AND WITH A GASTRIC INFECTION AND PUT ON TWO DIFFERENT ABX. COMPLAINS OF ABD BLOATING AND WT GAIN. STATES SHE IS SCHEDULED FOR A GALLBLADDER STUDY AND WOULD LIKE IT DONE TODAY. Sepsis Screen: No Definite Risk Source of Information: Patient, Spouse Exam Limitations: No Limitations History of Present Illness Date Seen by Provider: Sep 14, 2017 Time Seen by Provider: 13:40 Initial Comments 46-year-old female patient presents to the emergency department with complaints of epigastric pain and bloating for approximately 2-3 months. Patient states she was seen at [facility] walk-in clinic on 09/11/17 and diagnosed with a gastric infection. Was started on Biaxin, Flagyl, and Prilosec. Patient is scheduled tomorrow at [facility] to establish care with Sky Galan APRN. Patient reports gaining approximately 10-20 pounds in the last 3-4 weeks. Patient is waiting for [facility] to schedule an outpatient gallbladder ultrasound, but is waiting for her insurance to approve it. Timing/Duration: Other (2 to three-month onset of symptoms) Severity/Quality: Cramping Location: Epigastric Radiation: No Radiation Modifying Factors: Worsens With Eating, Improves With Other (Improved with burping) Allergies and Home Medications Allergies Coded Allergies: Penicillins (Verified Allergy, Unknown, 07/01/16) Sulfa (Sulfonamide Antibiotics) (Verified Allergy, Unknown, 07/01/16) Home Medications Famotidine 20 Mg Tablet, 20 MG PO BID Prescribed by: PADMA KAUR on 09/14/17 1653 Hydrocodone/Acetaminophen 1 Each Tablet, 1 EACH PO Q4H Prescribed by: INOCENCIO GARCIA on 08/24/17 1425 Hyoscyamine Sulfate 0.125 Mg Tab.subl, 0.125 MG SL Q6H PRN for SPASMS Prescribed by: PADMA KAUR on 09/14/17 1639 Lisinopril/Hydrochlorothiazide 1 Each Tablet, 1 EACH PO DAILY, (Reported) Naproxen 500 Mg Tablet, 500 MG PO BID Prescribed by: TINO DE LA PAZ on 04/19/17 1942 Ondansetron 8 Mg Tab.rapdis, 8 MG PO Q6H PRN for NAUSEA/VOMITING-1ST LINE Prescribed by: PADMA KAUR on 09/14/17 165 Polyethylene Glycol 3350 119 Gm Powder, 17 GM PO HS PRN for CONSTIPATION-1ST LINE Prescribed by: PADMA KAUR on 09/14/17 165 Tetracycline HCl 500 Mg Capsule, 500 MG PO QID Prescribed by: PADMA KAUR on 09/14/17 1719 Tramadol HCl 50 Mg Tablet, 50 MG PO Q4H Prescribed by: TINO DE LA PAZ on 04/19/17 194 Patient Home Medication List Home Medication List Reviewed: Yes Review of Systems Constitutional: No chills, diaphoresis, No dizziness, No fever, malaise, No weakness, weight gain, other (Fatigue) EENTM: No Symptoms Reported Respiratory: Denies Cough, Denies Shortness of Air, Denies SOA With Exertion, Denies Wheezing Cardiovascular: Denies Chest Pain, Denies Lightheadedness, Denies Palpitations , Denies Syncope Gastrointestinal: See HPI, Abdomen Distended (Upper abdominal distention), Abdominal Pain, Denies Blood Streaked Stools, Constipated (Patient fluctuates between constipation and diarrhea), Diarrhea (Fluctuates between constipation and diarrhea), Denies Difficulty Swallowing, Nausea (Reports worsening nausea when food immediately hits her stomach after eating), Poor Appetite, Denies Poor Fluid Intake, Denies Rectal Bleeding, Vomiting, Other (Indigestion, heartburn, burping, reflux) Genitourinary: Denies Burning, Denies Discharge, Denies Frequency, Denies Flank Pain, Denies Hematuria, Denies Pain Musculoskeletal: no symptoms reported Skin: no symptoms reported Psychiatric/Neurological: No Symptoms Reported Endocrine: Excessive Sweating, Denies Flushing, Denies Intolerance to Cold, Denies Intolerance to Heat, Denies Increased Hunger, Denies Increased Thrist, Unexplained Weight Gain All Other Systems Reviewed Negative Unless Noted: Yes (Negative excepted noted.) Past Oeqoyhc-Daxxjs-Kwgdya Hx Patient Social History Alcohol Use: Denies Use Recreational Drug Use: No Smoking Status: Current Everyday Smoker Type Used: Cigarettes Recent Foreign Travel: No Contact w/Someone Who Travel: No Recent Infectious Disease Expo: No Recent Hopitalizations: No Surgeries History of Surgeries: Yes ( X 2, D&C) Surgeries: Section, Tonsillectomy, Tubal Ligation Respiratory History of Respiratory Disorde: No Cardiovascular History of Cardiac Disorders: Yes Cardiac Disorders: Hypertension Neurological History of Neurological Disord: No Reproductive System Hx Reproductive Disorders: No Genitourinary History of Genitourinary Disor: No Gastrointestinal History of Gastrointestinal Di: No Musculoskeletal History of Musculoskeletal Dis: No Endocrine History of Endocrine Disorders: No HEENT History of HEENT Disorders: Yes (S/P TONSILLECTOMY) HEENT Disorders: Tonsilitis Cancer History of Cancer: No Psychosocial History of Psychiatric Problem: No Integumentary History of Skin or Integumenta: No Blood Transfusions History of Blood Disorders: No Reviewed Nursing Assessment Reviewed/Agree w Nursing PMH: Yes Family Medical History Significant Family History: No Pertinent Family Hx Physical Exam Vital Signs VS - Last 72 Hours, by Label 09/14/17 09/14/17 13:20 17:03 Temp 98.0 Pulse 83 87 Resp 18 18 B/P (MAP) 147/87 (107) 155/91 Pulse Ox 98 98 O2 Delivery Room Air Capillary Refill : Less Than 3 Seconds General Appearance: WD/WN, no apparent distress, obese HEENT: PERRL/EOMI, pharynx normal Neck: non-tender, supple, normal inspection Respiratory: lungs clear, normal breath sounds, no respiratory distress, no accessory muscle use Cardiovascular: normal peripheral pulses, regular rate, rhythm, no murmur Peripheral Pulses: 2+ Dorsalis Pedis (R), 2+ Left Dors-Pedis (L), 2+ Radial Pulses (R), 2+ Radial Pulses (L) Gastrointestinal: normal bowel sounds, no pulsatile mass, distended ( epigastric distention), guarding (epigastric), No rebound, tenderness ( generalized upper abdominal tenderness with greatest tenderness in the epigastrum) Extremities: no calf tenderness, normal capillary refill, pedal edema (Trace pedal edema bilaterally) Back: normal inspection, no CVA tenderness Neurologic/Psychiatric: alert, normal mood/affect, oriented x 3 Skin: normal color, warm/dry Progress/Results/Core Measures Results/Orders Lab Results Laboratory Tests Test 09/14/17 13:30 09/14/17 14:00 Range/Units Urine Color YELLOW Urine Clarity CLEAR Urine pH 7 5-9 Urine Specific [place] 1.010 L 1.016-1.022 Urine Protein NEGATIVE NEGATIVE Urine Glucose (UA) NEGATIVE NEGATIVE Urine Ketones NEGATIVE NEGATIVE Urine Nitrite NEGATIVE NEGATIVE Urine Bilirubin NEGATIVE NEGATIVE Urine Urobilinogen NORMAL NORMAL MG/DL Urine Leukocyte Esterase 1+ H NEGATIVE Urine RBC (Auto) NEGATIVE NEGATIVE Urine RBC NONE /HPF Urine WBC NONE /HPF Urine Squamous Epithelial Cells 0-2 /HPF Urine Crystals NONE /LPF Urine Bacteria NEGATIVE /HPF Urine Casts NONE /LPF Urine Mucus NEGATIVE /LPF Urine Culture Indicated NO Urine Opiates Screen NEGATIVE NEGATIVE Urine Oxycodone Screen NEGATIVE NEGATIVE Urine Methadone Screen NEGATIVE NEGATIVE Urine Propoxyphene Screen NEGATIVE NEGATIVE Urine Barbiturates Screen NEGATIVE NEGATIVE Ur Tricyclic Antidepressants Screen NEGATIVE NEGATIVE Urine Phencyclidine Screen NEGATIVE NEGATIVE Urine Amphetamines Screen NEGATIVE NEGATIVE Urine Methamphetamines Screen NEGATIVE NEGATIVE Urine Benzodiazepines Screen NEGATIVE NEGATIVE Urine Cocaine Screen NEGATIVE NEGATIVE Urine Cannabinoids Screen NEGATIVE NEGATIVE White Blood Count 10.1 4.3-11.0 10^3/uL Red Blood Count 4.67 4.35-5.85 10^6/uL Hemoglobin 13.4 11.5-16.0 G/DL Hematocrit 40 35-52 % Mean Corpuscular Volume 85 80-99 FL Mean Corpuscular Hemoglobin 29 25-34 PG Mean Corpuscular Hemoglobin Concent 34 32-36 G/DL Red Cell Distribution Width 14.8 H 10.0-14.5 % Platelet Count 428 H 130-400 10^3/uL Mean Platelet Volume 11.0 H 7.4-10.4 FL Neutrophils (%) (Auto) 58 42-75 % Lymphocytes (%) (Auto) 27 12-44 % Monocytes (%) (Auto) 10 0-12 % Eosinophils (%) (Auto) 4 0-10 % Basophils (%) (Auto) 0 0-10 % Neutrophils # (Auto) 5.9 1.8-7.8 X 10^3 Lymphocytes # (Auto) 2.8 1.0-4.0 X 10^3 Monocytes # (Auto) 1.1 H 0.0-1.0 X 10^3 Eosinophils # (Auto) 0.4 H 0.0-0.3 10^3/uL Basophils # (Auto) 0.0 0.0-0.1 10^3/uL Sodium Level 138 135-145 MMOL/L Potassium Level 3.9 3.6-5.0 MMOL/L Chloride Level 102 98-107 MMOL/L Carbon Dioxide Level 29 21-32 MMOL/L Anion Gap 7 5-14 MMOL/L Blood Urea Nitrogen 10 7-18 MG/DL Creatinine 0.67 0.60-1.30 MG/DL Estimat Glomerular Filtration Rate > 60 BUN/Creatinine Ratio 15 Glucose Level 113 H 70-105 MG/DL Calcium Level 8.9 8.5-10.1 MG/DL Total Bilirubin 0.3 0.1-1.0 MG/DL Aspartate Amino Transf (AST/SGOT) 18 5-34 U/L Alanine Aminotransferase (ALT/SGPT) 16 0-55 U/L Alkaline Phosphatase 66 40-136 U/L Total Protein 7.2 6.4-8.2 GM/DL Albumin 4.0 3.2-4.5 GM/DL Lipase 44 8-78 U/L TSH Crawford Testing 1.13 0.35-4.94 UIU/ML Serum Test, Qualitative NEGATIVE NEGATIVE My Orders Orders - PADMA KAUR Cbc With Automated Diff (09/14/17 13:55) Comprehensive Metabolic Panel (09/14/17 13:55) Drug Screen Stat (Urine) (09/14/17 13:55) Lipase (09/14/17 13:55) Ua Culture If Indicated (09/14/17 13:55) Saline Lock/Iv-Start (09/14/17 13:55) Abdomen, Flat & Upright/Decub (09/14/17 13:55) Ns Iv 1000 Ml (Sodium Chloride 0.9%) (09/14/17 13:55) Hcg,Qualitative Serum (09/14/17 14:37) Ct Abdomen/Pelvis W (09/14/17 15:18) Thyroid Analyzer (09/14/17 15:18) Iohexol Injection (Omnipaque 350 Mg/Ml 1 (09/14/17 15:30) Ns (Ivpb) (Sodium Chloride 0.9% Ivpb Bag (09/14/17 15:30) Medications Given in ED Current Medications Medications Dose Ordered Sig/Stephenie Route Start Time Stop Time Status Last Admin Dose Admin Iohexol 100 ml ONCE ONCE IV 09/14/17 15:30 09/14/17 15:31 DC 09/14/17 15:45 100 ML Sodium Chloride 100 ml ONCE ONCE IV 09/14/17 15:30 09/14/17 15:31 DC 09/14/17 15:45 100 ML Sodium Chloride 1,000 ml @ 0 mls/hr Q0M ONCE IV 09/14/17 13:55 09/14/17 13:56 DC 09/14/17 14:13 1,000 MLS/HR Vital Signs/I&O Vital Sign - Last 12Hours 09/14/17 09/14/17 13:20 17:03 Temp 98.0 Pulse 83 87 Resp 18 18 B/P (MAP) 147/87 (107) 155/91 Pulse Ox 98 98 O2 Delivery Room Air Blood Pressure Mean: 107 Point of Care Testing Urine -Bedside: Negative Diagnostic Imaging Diagonstic Imaging: Xray Plain Films/CT/US/NM/MRI: abdomen Comments FINDINGS: KUB and upright views of the abdomen demonstrate nondistended bowel gas pattern. There is no significant constipation. No free air is identified. Osseous structures are normal. IMPRESSION: Negative KUB and upright views of the abdomen. Dictated on workstation # [id number] Reviewed: Reviewed by Me (Radiology report reviewed by me) Diagonstic Imaging: CT Plain Films/CT/US/NM/MRI: abdomen, pelvis Comments FINDINGS: Included portions of the lung bases are clear. CT abdomen: Small bowel loops are nondistended. Normal appendix is identified. Moderate air and stool is noted scattered throughout the colon. There is a nodular peripherally enhancing lesion within the subcapsular margins of segment VII of the liver that measures 2.2 x 2.7 cm consistent with hemangioma. Nodular area of hyperenhancement is also seen more anteriorly and measures approximately 7-8 mm in diameter (image 38, series 2). Otherwise, background of the hepatic parenchyma appears hypodense on this post contrast exam suggestive of background of hepatic steatosis. The kidneys, adrenal glands, spleen, and pancreas have a normal CT appearance. There is no loculated fluid collection, free fluid, or free air within the abdomen. Single prominent lymph node is noted new the GE junction and measures approximately 1.2 cm (image 25, series 2) . No other abnormal mesenteric or retroperitoneal adenopathy is seen. Bony structures show no acute abnormalities. CT pelvis: Urinary bladder is grossly unremarkable. There is no loculated fluid collection, free fluid, or free air within the pelvis. No abnormal lymph nodes are seen. Bony structures show no acute abnormalities. IMPRESSION: 1. No acute abnormalities are seen within the abdomen or pelvis. 2. Moderate colonic air and stool. Please correlate for constipation. 3. Probable hepatic steatosis. 4. Benign-appearing hepatic hemangioma. 5. More focal nodular area of hyperenhancement within segment of the liver. Findings could represent atypical hemangioma or transhepatic attenuation defect, although exact etiology is indeterminate. 6. Single slightly prominent abdominal lymph node at the GE junction as described above. Dictated on workstation # [id number] Reviewed: Reviewed by Me (radiology report reviewed by me) Departure Communication (Admissions) Progress Notes Patient seen and evaluated. Initial labs and abdominal x-ray obtained. Patient was given 1 L normal saline with improvement in symptoms. Patient states she had belched "quite a bit" and felt much better. Patient does continue to be tender in the upper mid abdomen. We'll plan for CT scan of the abdomen and pelvis at this time. 1630 CT scan findings discussed with the patient. We'll plan for discharge to home with follow-up as an outpatient tomorrow with [facility] as previously scheduled. No plan for changing the clarithromycin to tetracycline due to diarrhea associated with the clarithromycin. Patient to return immediately for worsened symptoms or any other concerns. Impression Impression: Primary Impression: Acute gastritis Qualified Codes: K29.00 - Acute gastritis without bleeding Additional Impressions: Abnormal CT scan, liver Weight gain, abnormal History of Helicobacter pylori infection Disposition: HOME, SELF-CARE Condition: Improved Departure-Patient Inst. Decision time for Depature: 16:34 Referrals: [facility] (PCP/Family) Primary Care Physician Patient Instructions: Gastritis (DC), H. pylori Infection (DC), Ulcer and Gastritis Diet Add. Discharge Instructions: All discharge instructions reviewed with patient and/or family. Voiced understanding. -Medications as instructed. -Stop the clarithromycin. -Continue the metronidazole and omeprazole. -Pepto-Bismol 140 mg srbk-pbh-mavyerf 2 chewable tablets by mouth 4 times daily 2 weeks (for the treatment of the H. pylori infection in the stomach). The Pepto-Bismol may cause you to have black stools. -Avoid fatty foods, spicy foods, carbonated beverages, caffeinated beverages, smoking, secondhand smoke, alcohol. -Do not lie down with in 2 hours of eating. -Elevate the head of the bed if needed for reflux symptoms. -Follow-up with [facility] tomorrow for recheck as previously scheduled. You are scheduled to see Sky Galan APRN. Your provider may want to schedule you for an outpatient ultrasound and/or MRI of the liver to further evaluate the nodularity and hemangioma (lesion seen on CT scan of the abdomen). They may also want to schedule you for a repeat CT scan in 3-6 months to reevaluate this area. They may have you follow up with a general surgeon for possible need of upper endoscopy to look in and biopsy the stomach and esophagus. -Colace stool softener xatm-iar-cwqolgv 100 mg by mouth twice daily as needed for constipation. -MiraLAX csrw-btn-mxcfaft 17 g mixed with 8 ounces of fluids by mouth twice daily for 3 days, then at bedtime as needed for constipation. -Dulcolax 10 mg icdp-mjs-hehoyrv eye mouth daily as needed for severe constipation. -High fiber diet. -Chewable Gas-X or Beano [id number] for bloating and gas. -Return to the emergency department for worsened pain, fever, vomiting blood, rectal bleeding, shortness of air, chest pain, fever, or any other concerns. Scripts Tetracycline HCl (Tetracycline HCl) 500 Mg Capsule 500 MG PO QID, #56 CAP 0 Refills Prov: PADMA KAUR 09/14/17 Famotidine (Pepcid) 20 Mg Tablet 20 MG PO BID, #30 TAB 0 Refills Prov: PADMA KAUR 09/14/17 Polyethylene Glycol 3350 (Miralax) 119 Gm Powder 17 GM PO HS Y for CONSTIPATION-1ST LINE, #1 EA 0 Refills Prov: PADMA KAUR 09/14/17 Ondansetron (Ondansetron Odt) 8 Mg Tab.rapdis 8 MG PO Q6H Y for NAUSEA/VOMITING-1ST LINE, #10 TAB 0 Refills Prov: PADMA KAUR 09/14/17 Hyoscyamine Sulfate (Hyoscyamine Sulfate) 0.125 Mg Tab.subl 0.125 MG SL Q6H Y for SPASMS, #20 TAB 0 Refills Prov: PADMA KAUR 09/14/17 PADMA KAUR Sep 14, 2017 14:41
[2017-09-14 14:47] LABS: BACTERIA,URINE NEGATIVE /HPF; SQUAMOUS EPITHELIAL CELL,UR 0-2 /HPF
[2017-09-14 14:52] LABS: AMPHETAMINE SCREEN, URINE NEGATIVE (NEGATIVE); BARBITURATE SCREEN URINE NEGATIVE (NEGATIVE); BENZODIAZEPINES SCREEN URINE NEGATIVE (NEGATIVE); CANNABINOID SCREEN, URINE NEGATIVE (NEGATIVE); COCAINE SCREEN URINE NEGATIVE (NEGATIVE); METHADONE STAT NEGATIVE (NEGATIVE); METHAMPHETAMINE SCREEN URINE S NEGATIVE (NEGATIVE); OPIATE SCREEN URINE NEGATIVE (NEGATIVE); OXYCODONE STAT NEGATIVE (NEGATIVE); PROPOXYPHENE STAT NEGATIVE (NEGATIVE); TRICYCLIC ANTIDEPRESSANTS SCRE NEGATIVE (NEGATIVE)
--- NOTE | 2017-09-14 15:06 | Diagnostic Imaging Report ---
INDICATION: Abdominal pain, diarrhea. COMPARISON: None. FINDINGS: KUB and upright views of the abdomen demonstrate nondistended bowel gas pattern. There is no significant constipation. No free air is identified. Osseous structures are normal. IMPRESSION: Negative KUB and upright views of the abdomen. Dictated by: Dictated on workstation # [id number]
[2017-09-14] MEDS ORDERED: IOHEXOL 350 MG/ML 100 ML (OMNIPAQUE 350) VIAL IV ONE (15:30)
[2017-09-14] MEDS ORDERED: NS 100 ML (IVPB) BAG IV ONE (15:30)
--- NOTE | 2017-09-14 16:27 | Diagnostic Imaging Report ---
PROCEDURE: CT abdomen and pelvis with contrast. TECHNIQUE: Multiple contiguous axial images were obtained through the abdomen and pelvis after administration of intravenous contrast. INDICATION: 20-pound weight gain in last month. Postprandial bloating. COMPARISON: None. FINDINGS: Included portions of the lung bases are clear. CT abdomen: Small bowel loops are nondistended. Normal appendix is identified. Moderate air and stool is noted scattered throughout the colon. There is a nodular peripherally enhancing lesion within the subcapsular margins of segment VII of the liver that measures 2.2 x 2.7 cm consistent with hemangioma. Nodular area of hyperenhancement is also seen more anteriorly and measures approximately 7-8 mm in diameter (image 38, series 2). Otherwise, background of the hepatic parenchyma appears hypodense on this post contrast exam suggestive of background of hepatic steatosis. The kidneys, adrenal glands, spleen, and pancreas have a normal CT appearance. There is no loculated fluid collection, free fluid, or free air within the abdomen. Single prominent lymph node is noted new the GE junction and measures approximately 1.2 cm (image 25, series 2). No other abnormal mesenteric or retroperitoneal adenopathy is seen. Bony structures show no acute abnormalities. CT pelvis: Urinary bladder is grossly unremarkable. There is no loculated fluid collection, free fluid, or free air within the pelvis. No abnormal lymph nodes are seen. Bony structures show no acute abnormalities. IMPRESSION: 1. No acute abnormalities are seen within the abdomen or pelvis. 2. Moderate colonic air and stool. Please correlate for constipation. 3. Probable hepatic steatosis. 4. Benign-appearing hepatic hemangioma. 5. More focal nodular area of hyperenhancement within segment of the liver. Findings could represent atypical hemangioma or transhepatic attenuation defect, although exact etiology is indeterminate. 6. Single slightly prominent abdominal lymph node at the GE junction as described above. Dictated by: Dictated on workstation # [id number]
[2017-09-14] MEDS ORDERED: HYOS-19 SL (16:39)
[2017-09-14] MEDS ORDERED: POLY119P5 PO (16:53)
[2017-09-14] MEDS ORDERED: TETR500C2 PO ×2 (16:53→17:19)
[2017-09-14] MEDS ORDERED: ONDA8TAB13 PO (16:53)
[2017-09-14] MEDS ORDERED: FAMO-119 PO (16:53)
[2017-09-14 17:03] VITALS: BP 155/91
== END 2017-09-14 17:02 | disposition home or self-care (01) ==
LOC: EDUNIT# 13:08 → ER 13:10
DX: K29.00 Acute gastritis without bleeding (principal); R93.2 Abnormal findings on diagnostic imaging of liver and biliary tract; R63.5 Abnormal weight gain; I10 Essential (primary) hypertension; F17.210 Nicotine dependence, cigarettes, uncomplicated; Z88.0 Allergy status to penicillin; Z88.2 Allergy status to sulfonamides; Z86.19 Personal history of other infectious and parasitic diseases; Z90.89 Acquired absence of other organs; Z98.51 Tubal ligation status; Z87.59 Personal history of other complications of pregnancy, childbirth and the puerperium
CPT/HCPCS: 36415; 74019; 74177; 80053; 80306; 81000; 83690; 84443; 84703; 85025; 96360

== ENCOUNTER 2017-09-16 13:26 | Emergency (ER) | payer MEDICARE, MEDICAID ==
[~2017-09-16] VITALS: Ht 160 cm; Wt 99.8 kg
[~2017-09-16 13:26] MED LIST changes: +FAMO-119 PO; +HYOS-19 SL; +ONDA8TAB13 PO; +POLY119P5 PO; +TETR500C2 PO
--- OUTSIDE RECORDS SUMMARY | 2017-09-16 13:33 | XMS REPORT | Continuity of Care Document ---
Author Author [facility] Organization [facility] Address Unknown Phone Unavailable Allergies There is no data. Medications There is no data. Problems Date Dx Coded Attending Type Code Diagnosis Diagnosed By 06/15/2015 ASHLEY GRAVESALL L A [id number] Abdominal Pain 06/15/2015 ELY, JOSE L A 12 Back Pain 06/15/2015 ELY, JOSE L A [id number] Abdominal Pain 06/15/2015 ELY, JOSE L A 12 Back Pain 06/15/2015 ELY, JOSE L A [id number] Abdominal Pain 06/15/2015 ELY, JOSE L A 12 Back Pain 06/15/2015 ELY, JOSE L A [id number] Abdominal Pain 06/15/2015 ELY JOSE L A 12 Back Pain 06/15/2015 ELY, JOSE L A [id number] Abdominal Pain 06/15/2015 ELY, JOSE L A 12 Back Pain 06/15/2015 ELY, JOSE L A [id number] Abdominal Pain 06/15/2015 ELY JOSE L A [...] Status Pt. Type Provider Facility Loc./Unit Complaint [id number] 06/15/2015 17:50:00 06/15/2015 22:35:00 DIS Emergency JOSE GRAVES [facility] FED [id number] 01/29/2017 13:16:09 01/29/2017 23:59:59 [facility] Outpatient Heraclio Juarez
[2017-09-16] MEDS ORDERED: DOXY100C42 PO (14:04)
[2017-09-16] MEDS ORDERED: METR500T PO (14:04)
--- NOTE | 2017-09-16 14:12 | ED EENT ---
History of Present Illness General Chief Complaint: Oral/Throat Problems Stated Complaint: THROAT SWELLING Nursing Triage Note: PT STATES FEELS LIKE THROAT SWELLING Source: patient, other Exam Limitations: no limitations History of Present Illness Date Seen by Provider: Sep 16, 2017 Time Seen by Provider: 14:08 Initial Comments Patient presents to ER with private conveyance with a chief complaint that 2 days ago she was seen in the ER for abdominal pain was started on some medications for possible stomach infection including famotidine, doxycycline and Flagyl. She was tolerating the meds are okay but then today started having difficulty breathing and she says her airway closed nearly off to where she couldn't breathe through it for a few seconds. Says it started to improve by the time she got to the ER. She does not have a history of angioedema however she does take lisinopril for years. She does not have a primary care doctor instead follows through the help department. She's not having any fevers chills nausea vomiting diarrhea or shortness of breath at this time. Allergies and Home Medications Allergies Coded Allergies: Penicillins (Verified Allergy, Unknown, 07/01/16) Sulfa (Sulfonamide Antibiotics) (Verified Allergy, Unknown, 07/01/16) Home Medications Doxycycline Monohydrate 100 Mg Capsule, 100 MG PO DAILY, (Reported) Famotidine 20 Mg Tablet, 20 MG PO BID Prescribed by: PADMA KAUR on 09/14/171652 Hydrocodone/Acetaminophen 1 Each Tablet, 1 EACH PO Q4H Prescribed by: INOCENCIO GARCIA on 08/24/17 1425 Lisinopril/Hydrochlorothiazide 1 Each Tablet, 1 EACH PO DAILY, (Reported) Metronidazole 500 Mg Tablet, 500 MG PO TID, (Reported) Ondansetron 8 Mg Tab.rapdis, 8 MG PO Q6H PRN for NAUSEA/VOMITING-1ST LINE Prescribed by: PADMA KAUR on 09/14/171652 Polyethylene Glycol 3350 119 Gm Powder, 17 GM PO HS PRN for CONSTIPATION-1ST LINE Prescribed by: PADMA KAUR on 09/14/171652 Patient Home Medication List Home Medication List Reviewed: Yes Review of Systems Constitutional: No chills, No diaphoresis Eyes: Denies Blindness, Denies Drainage Ears: Denies Dizziness, Denies Pain Nose: denies clots, congestion Mouth: denies clots, denies loose teeth, denies pain, denies swelling, denies bloody discharge, denies clear discharge, denies purulent discharge Throat: denies pain, swelling, denies discharge, denies neck stiffness, denies hoarse, denies aphonia Respiratory: No cough, No phlegm Cardiovascular: No chest pain, No Hx of Intervention, No palpitations Gastrointestinal: No abdominal pain, No nausea, No vomiting : No Past Vdfagnr-Fegcrq-Ynaknx Hx Patient Social History Alcohol Use: Denies Use Recreational Drug Use: No Smoking Status: Current Someday Smoker Type Used: Cigarettes Recent Foreign Travel: No Contact w/Someone Who Travel: No Recent Infectious Disease Expo: No Recent Hopitalizations: No Physical Abuse: No Sexual Abuse: No Surgeries History of Surgeries: Yes ( X 2, D&C) Surgeries: Section, Tonsillectomy, Tubal Ligation Respiratory History of Respiratory Disorde: No Cardiovascular History of Cardiac Disorders: Yes Cardiac Disorders: Hypertension Neurological History of Neurological Disord: No Reproductive System Hx Reproductive Disorders: No Genitourinary History of Genitourinary Disor: No Gastrointestinal History of Gastrointestinal Di: No Musculoskeletal History of Musculoskeletal Dis: No Endocrine History of Endocrine Disorders: No HEENT History of HEENT Disorders: Yes (S/P TONSILLECTOMY) HEENT Disorders: Tonsilitis Cancer History of Cancer: No Psychosocial History of Psychiatric Problem: No Suicide Risk Score: 0 Integumentary History of Skin or Integumenta: No Blood Transfusions History of Blood Disorders: No Family Medical History Significant Family History: No Pertinent Family Hx Physical Exam Vital Signs Vital Signs - First Documented 09/16/17 13:40 Temp 97.4 Pulse 95 Resp 18 B/P (MAP) 149/95 (113) Pulse Ox 97 General Appearance: WD/WN, no apparent distress Eyes: bilateral eye normal inspection, bilateral eye PERRL, bilateral eye EOMI Ears: bilateral ear auricle normal, bilateral ear canal normal, bilateral ear TM normal Nose: normal inspection, active bleeding Mouth/Throat: normal mouth inspection, pharynx normal, No dental tenderness, No excessive drooling, No foreign body, No mandibular swelling, No maxillary swelling, No pharynx tenderness, No tongue swollen, No tonsillar exudate, No tonsillar swelling, No uvula swelling Neck: non-tender, full range of motion, supple, normal inspection Cardiovascular: normal peripheral pulses, regular rate, rhythm, no edema Respiratory: chest non-tender, lungs clear, normal breath sounds Gastrointestinal: normal bowel sounds, non tender, soft Neurologic/Psychiatric: no motor/sensory deficits, alert, oriented x 3 Skin: normal color, warm/dry Progress/Results/Core Measures Results/Orders My Orders Orders - PALLAVI JUNIOR Methylprednisolone Sod Succ (Solu-Medrol (09/16/17 14:15) Dexamethasone Injection (Decadron Inject (09/16/17 14:15) Diphenhydramine Tablet (Benadryl Tablet) (09/16/17 14:15) Vital Signs/I&O Vital Sign - Last 12Hours 09/16/17 13:40 Temp 97.4 Pulse 95 Resp 18 B/P (MAP) 149/95 (113) Pulse Ox 97 Blood Pressure Mean: 113 Progress Note #1: Time: 14:11 Progress Note There may be a little bit of retro-oropharyngeal swelling noted however seems to have improved. The patient is on famotidine but has not taken any steroids or Benadryl. We'll go ahead and treat her as though it's possibly angioedema with some steroids and give her an EpiPen to go home with after we observe her for a short period. We have informed her not to take her lisinopril and we'll give her a another prescription for the hydrochlorothiazide. Progress Note #2: Time: 14:45 Progress Note The patient tolerated her injection of steroids and after a short observation period is been allowed to go home. Departure Impression Impression: Primary Impression: Angioedema Qualified Codes: T78.3XXA - Angioneurotic edema, initial encounter Disposition: 01 HOME, SELF-CARE Condition: Improved Departure-Patient Inst. Decision time for Depature: 14:45 Referrals: [facility] (PCP/Family) Primary Care Physician Patient Instructions: Angioedema (DC) Add. Discharge Instructions: Follow-up this week with your primary care physician to discuss your continued use of blood pressure medicines. 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 All discharge instructions reviewed with patient and/or family. Voiced understanding. Scripts Hydrochlorothiazide (Hydrochlorothiazide) 25 Mg Tablet 25 MG PO DAILY for 30 Days, #30 TAB 0 Refills Prov: PALLAVI JUNIOR 09/16/17 Epinephrine (Epipen 2-Chuy) 0.3 Mg/0.3 Ml Auto.injct 0.3 MG IJ ONCE, #2 EACH 0 Refills PRN Stridor or tongue/throat swelling Prov: PALLAVI JUNIOR 09/16/17 Copy Copies To 1: BENNY JONES TITUS J Sep 16, 2017 14:12
[2017-09-16] MEDS ORDERED: DEXAMETHASONE 10 MG/ML (DECADRON) 1 ML VIAL IM ONE (14:15)
[2017-09-16] MEDS ORDERED: methylPREDNISolone 40 MG/ML (Solu-MEDROL) VIAL IM ONE (14:15)
[2017-09-16] MEDS ORDERED: diphenhydrAMINE 25 MG TAB (BENADRYL) PO ONE (14:15)
[2017-09-16] MEDS ORDERED: EPIN0.3P3 IJ (14:50)
[2017-09-16] MEDS ORDERED: HYDR25TA4 PO (14:50)
[2017-09-16 15:00] VITALS: BP 149/95
== END 2017-09-16 15:03 | disposition home or self-care (01) ==
LOC: EDUNIT# 13:26 → ER 13:27
DX: T78.3XXA Angioneurotic edema, initial encounter (principal); I10 Essential (primary) hypertension; F17.210 Nicotine dependence, cigarettes, uncomplicated; Z90.89 Acquired absence of other organs; Z98.51 Tubal ligation status; Z87.59 Personal history of other complications of pregnancy, childbirth and the puerperium; Z88.0 Allergy status to penicillin; Z88.2 Allergy status to sulfonamides
CPT/HCPCS: 99284

== ENCOUNTER 2018-01-07 11:55 | Emergency (ER) | payer MEDICARE, MEDICAID ==
[~2018-01-07] VITALS: Ht 160 cm; Wt 99.8 kg
[2018-01-07 12:17] LABS: BASOPHILS % (AUTO) 0 % (0-10); EOSINOPHILS # (AUTO) 0.2 10^3/uL (0.0-0.3); EOSINOPHILS % (AUTO) 2 % (0-10); HEMATOCRIT 38 % (35-52); HEMOGLOBIN 12.9 G/DL (11.5-16.0); LYMPHOCYTES # (AUTO) 3.2 X 10^3 (1.0-4.0); LYMPHOCYTES % (AUTO) 29 % (12-44); MEAN CORPUSCULAR HEMOGLOBIN 27 PG (25-34); MEAN CORPUSCULAR HGB CONC 34 G/DL (32-36); MEAN CORPUSCULAR VOLUME 79 FL (80-99); MEAN PLATELET VOLUME 10.6 FL (7.4-10.4); MONOCYTES # (AUTO) 0.9 X 10^3 (0.0-1.0); MONOCYTES % (AUTO) 8 % (0-12); NEUTROPHILS # (AUTO) 6.7 X 10^3 (1.8-7.8); NEUTROPHILS % (AUTO) 61 % (42-75); PLATELET COUNT 512 10^3/uL (130-400); RED BLOOD COUNT 4.86 10^6/uL (4.35-5.85); RED CELL DISTRIBUTION WIDTH 18.4 % (10.0-14.5)
--- NOTE | 2018-01-07 12:33 | ED Cardiac General ---
History of Present Illness General Chief Complaint: Chest Pain Stated Complaint: CHEST PAIN Nursing Triage Note: PT STATES CHEST PAIN FOR 3 DAYS, WORSE TODAY, NAUSEA AND DIZZINESS, JUST QUIT SMOKING AND IS USING A PATCH. Source: patient Exam Limitations: no limitations History of Present Illness Date Seen by Provider: Jan 07, 2018 Time Seen by Provider: 12:28 Initial Comments The patient is a 47-year-old white female. She presents today with complaints of intermittent chest pain for the last 3 days. She denies fevers or sweats. She is perimenopausal. She reports that she has a history of heart murmur. 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 This was while she was in [place]. She saw their [facility] there and was referred here for treatment of her drug addiction. She last had an echocardiogram in 2013. There is no history of early heart disease. She is not diabetic. She does smoke but is attempting to quit. Timing/Duration: 3-4 days Location: substernal, central Activities at Onset: none Prior CP/Workup: echocardiography Associated Systoms: Cough Allergies and Home Medications Allergies Coded Allergies: lisinopril (Verified Allergy, Severe, 10/27/17) Penicillins (Verified Allergy, Unknown, 07/01/16) Sulfa (Sulfonamide Antibiotics) (Verified Allergy, Unknown, 07/01/16) Home Medications Dicyclomine HCl 10 Mg Capsule, 10 MG PO ACHS Prescribed by: INOCENCIO GARCIA on 11/14/172301 Epinephrine 0.3 Mg/0.3 Ml Auto.injct, 0.3 MG IJ ONCE PRN Stridor or tongue/throat swelling Prescribed by: PALLAVI JUNIOR on 09/16/17 1450 Hydrochlorothiazide 25 Mg Tablet, 25 MG PO DAILY Prescribed by: PALLAVI JUNIOR on 09/16/17 1450 Hydrochlorothiazide 25 Mg Tablet, 25 MG PO DAILY Prescribed by: INOCENCIO GARCIA on 11/14/172301 Nystatin 15 Gm Cream..g., 1 GM TP BID Prescribed by: INOCENCIO GARCIA on 11/14/172308 Patient Home Medication List Home Medication List Reviewed: Yes Review of Systems Constitutional: see HPI EENTM: No Symptoms Reported Respiratory: Cough Cardiovascular: See HPI, Chest Pain Gastrointestinal: No Symptoms Reported Genitourinary: No Symptoms Reported Musculoskeletal: no symptoms reported Skin: no symptoms reported Psychiatric/Neurological: No Symptoms Reported Past Zgrvehp-Hprebl-Amqyjy Hx Patient Social History Alcohol Use: Denies Use Recreational Drug Use: Yes (IV METH, 3 YRS CLEAN) Smoking Status: Current Someday Smoker Type Used: Cigarettes Recent Foreign Travel: No Contact w/Someone Who Travel: No Recent Infectious Disease Expo: No Recent Hopitalizations: No Seasonal Allergies Seasonal Allergies: Yes Past Medical History Surgeries: Yes ( X 2, D&C) Adenoidectomy, Section, Tonsillectomy, Tubal Ligation Respiratory: Yes Chronic Bronchitis Cardiac: Yes Heart Murmur, Hypertension Neurological: No Reproductive Disorders: 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, 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 Genitourinary: No Gastrointestinal: Yes Irritable Bowel Musculoskeletal: No Endocrine: No HEENT: Yes (S/P TONSILLECTOMY) Tonsilitis Cancer: No Psychosocial: Yes PTSD, Bipolar, Schizophrenia Integumentary: No Blood Disorders: No Family Medical History No Pertinent Family Hx Physical Exam Vital Signs Vital Signs - First Documented 01/07/18 12:03 Temp 99.1 Pulse 84 Resp 20 B/P (MAP) 163/110 (127) Pulse Ox 97 O2 Delivery Room Air Capillary Refill : Less Than 3 Seconds General Appearance: No Apparent Distress, WD/WN HEENT: Normal ENT Inspection Neck: Normal Inspection Respiratory: Chest Non Tender, Lungs Clear, Normal Breath Sounds, No Accessory Muscle Use, No Respiratory Distress Cardiovascular: Regular Rate, Rhythm, No Edema, No Gallop, No JVD, No Murmur, Normal Peripheral Pulses Gastrointestinal: Normal Bowel Sounds, No Organomegaly, No Pulsatile Mass, Non Tender Extremity: Normal Capillary Refill, Normal Inspection, Normal Range of Motion, Non Tender, No Calf Tenderness, No Pedal Edema Neurologic/Psychiatric: Alert, Oriented x3, No Motor/Sensory Deficits, Normal Mood/Affect Skin: Normal Color, Warm/Dry Lymphatic: No Adenopathy Progress/Results/Core Measures Results/Orders Lab Results Laboratory Tests Test 01/07/18 12:06 01/07/18 12:30 Range/Units White Blood Count 11.0 4.3-11.0 10^3/uL Red Blood Count 4.86 4.35-5.85 10^6/uL Hemoglobin 12.9 11.5-16.0 G/DL Hematocrit 38 35-52 % Mean Corpuscular Volume 79 L 80-99 FL Mean Corpuscular Hemoglobin 27 25-34 PG Mean Corpuscular Hemoglobin Concent 34 32-36 G/DL Red Cell Distribution Width 18.4 H 10.0-14.5 % Platelet Count 512 H 130-400 10^3/uL Mean Platelet Volume 10.6 H 7.4-10.4 FL Neutrophils (%) (Auto) 61 42-75 % Lymphocytes (%) (Auto) 29 12-44 % Monocytes (%) (Auto) 8 0-12 % Eosinophils (%) (Auto) 2 0-10 % Basophils (%) (Auto) 0 0-10 % Neutrophils # (Auto) 6.7 1.8-7.8 X 10^3 Lymphocytes # (Auto) 3.2 1.0-4.0 X 10^3 Monocytes # (Auto) 0.9 0.0-1.0 X 10^3 Eosinophils # (Auto) 0.2 0.0-0.3 10^3/uL Basophils # (Auto) 0.0 0.0-0.1 10^3/uL Sodium Level 137 135-145 MMOL/L Potassium Level 3.3 L 3.6-5.0 MMOL/L Chloride Level 99 98-107 MMOL/L Carbon Dioxide Level 27 21-32 MMOL/L Anion Gap 11 5-14 MMOL/L Blood Urea Nitrogen 14 7-18 MG/DL Creatinine 0.75 0.60-1.30 MG/DL Estimat Glomerular Filtration Rate > 60 BUN/Creatinine Ratio 19 Glucose Level 199 H 70-105 MG/DL Calcium Level 9.4 8.5-10.1 MG/DL Total Bilirubin 0.5 0.1-1.0 MG/DL Aspartate Amino Transf (AST/SGOT) 20 5-34 U/L Alanine Aminotransferase (ALT/SGPT) 18 0-55 U/L Alkaline Phosphatase 67 40-136 U/L Troponin I < 0.30 <0.30 NG/ML Total Protein 7.1 6.4-8.2 GM/DL Albumin 3.9 3.2-4.5 GM/DL Urine Color CRISTIAN H Urine Clarity CLEAR Urine pH 6 5-9 Urine Specific [place] 1.020 1.016-1.022 Urine Protein 2+ H NEGATIVE Urine Glucose (UA) 1+ H NEGATIVE Urine Ketones 1+ H NEGATIVE Urine Nitrite NEGATIVE NEGATIVE Urine Bilirubin NEGATIVE NEGATIVE Urine Urobilinogen 1 NORMAL MG/DL Urine Leukocyte Esterase 1+ H NEGATIVE Urine RBC (Auto) NEGATIVE NEGATIVE Urine RBC NONE /HPF Urine WBC 0-2 /HPF Urine Squamous Epithelial Cells 2-5 /HPF Urine Crystals NONE /LPF Urine Bacteria NEGATIVE /HPF Urine Casts NONE /LPF Urine Mucus SMALL H /LPF Urine Culture Indicated NO My Orders Orders - KT MARTÍNEZ MD Ekg Tracing (01/07/18 12:04) Cbc With Automated Diff (01/07/18 12:04) Comprehensive Metabolic Panel (01/07/18 12:04) Troponin I (01/07/18 12:04) Ua Culture If Indicated (01/07/18 12:04) Chest 1 View, Ap/Pa Only (01/07/18 12:04) Vital Signs/I&O 01/07/18 12:03 Temp 99.1 Pulse 84 Resp 20 B/P (MAP) 163/110 (127) Pulse Ox 97 O2 Delivery Room Air Blood Pressure Mean: 127 Departure Communication (Admissions) Lab EKG and chest x-ray are unremarkable. The patient reports she is to see Dr. Jean-Baptiste at the office tomorrow. Impression Primary Impression: Chest pain Disposition: HOME, SELF-CARE Condition: Stable/Unchanged Departure-Patient Inst. Decision time for Depature: 13:22 Referrals: CAREY JEAN-BAPTISTE DO (PCP/Family) Primary Care Physician Patient Instructions: Chest Pain That Is Not Caused by the Heart (DC) Add. Discharge Instructions: All discharge instructions reviewed with patient and/or family. Voiced understanding. Use ibuprofen 600 mg 3 times daily or naproxen 440 mg twice daily in an attempt to eliminate the chest pain. When you see Dr. Jean-Baptiste tomorrow, discussed with him here past history of IV drug use and resultant endocarditis. Inquire as to whether he would schedule an echocardiogram. KT MARTÍNEZ MD Jan 07, 2018 12:33
[2018-01-07 12:34] LABS: ALANINE AMINOTRANSFERASE 18 U/L (0-55); ALBUMIN 3.9 GM/DL (3.2-4.5); ALKALINE PHOSPHATASE 67 U/L (40-136); BUN/CREATININE RATIO 19; CALCIUM 9.4 MG/DL (8.5-10.1); CARBON DIOXIDE 27 MMOL/L (21-32); CHLORIDE 99 MMOL/L (98-107); CREATININE SERUM 0.75 MG/DL (0.60-1.30); GFR ESTIMATED > 60; GLUCOSE 199 MG/DL (70-105); POTASSIUM 3.3 MMOL/L (3.6-5.0); SODIUM 137 MMOL/L (135-145); TOTAL PROTEIN 7.1 GM/DL (6.4-8.2)
[2018-01-07 12:38] LABS: BILIRUBIN,URINE NEGATIVE (NEGATIVE); CLARITY,URINE CLEAR; COLOR,URINE AMBER; GLUCOSE, URINE (UA) 1+ (NEGATIVE); KETONES,URINE 1+ (NEGATIVE); LEUKOCYTE ESTERASE ,URINE 1+ (NEGATIVE); NITRITE,URINE NEGATIVE (NEGATIVE); PH,URINE 6 (5-9); PROTEIN,URINE 2+ (NEGATIVE); UROBILINOGEN,URINE 1 MG/DL (NORMAL)
[2018-01-07 12:45] LABS: BACTERIA,URINE NEGATIVE /HPF; WBC,URINE 0-2 /HPF
[2018-01-07 12:53] LABS: BILIRUBIN,TOTAL 0.5 MG/DL (0.1-1.0)
--- NOTE | 2018-01-07 12:57 | Diagnostic Imaging Report ---
INDICATION: Chest pain. EXAMINATION: Frontal chest obtained at 12:19 p.m. and compared with 06/01/2017. FINDINGS: Heart and mediastinal silhouette are normal in appearance. The lungs are clear. There is no pneumothorax or pleural fluid. IMPRESSION: No acute process in the chest. Dictated by: Dictated on workstation # [id number]
[2018-01-07 13:40] VITALS: BP 109/92
== END 2018-01-07 13:39 | disposition home or self-care (01) ==
LOC: EDUNIT# 11:55 → ER 11:57
DX: R07.9 Chest pain, unspecified (principal); J42 Unspecified chronic bronchitis; I10 Essential (primary) hypertension; F43.10 Post-traumatic stress disorder, unspecified; F20.9 Schizophrenia, unspecified; F31.9 Bipolar disorder, unspecified; F17.210 Nicotine dependence, cigarettes, uncomplicated; Z87.59 Personal history of other complications of pregnancy, childbirth and the puerperium; Z90.89 Acquired absence of other organs; Z98.51 Tubal ligation status; Z88.0 Allergy status to penicillin; Z88.1 Allergy status to other antibiotic agents; Z88.2 Allergy status to sulfonamides
CPT/HCPCS: 36415; 71045; 80053; 81000; 84484; 85025; 93005

== ENCOUNTER → 2018-01-07 | Outpatient (CLI) | payer MEDICARE, MEDICAID ==
[~2018-01-07] MED LIST changes: +DICY10CA12 PO; +DOXY100C42 PO; +EPIN0.3P3 IJ; +HYDR25TA4 PO; +LORA10TA7; +METR500T PO; +NYST15CR TP; +TETR-37 PO; -TETR500C2 PO
--- NOTE | 2018-01-07 10:24 | Diagnostic Imaging Report ---
PROCEDURE: CT sinuses without contrast TECHNIQUE: Multiple contiguous axial images were obtained through the sinuses without the use of intravenous contrast. Coronal and sagittal reformations were then performed. INDICATION: Maxillary pain and jaw pain. FINDINGS: The frontal sinus is hypoplastic. The ethmoid air cells and sphenoid sinus are well aerated. Bilateral maxillary sinuses are well aerated. No mucosal thickening or air-fluid levels are seen. The mastoid air cells are well aerated. There is some mild nasal septal deviation to the left. Ostiomeatal complexes are patent. IMPRESSION: No evidence of sinusitis. Dictated by: Dictated on workstation # [id number]
== END ==
LOC: RAD 09:40
PROVIDERS: ATTEND Family Medicine
DX: R68.84 Jaw pain (principal)
CPT/HCPCS: 70486

== ENCOUNTER → 2018-01-21 | Outpatient (CLI) | payer MEDICARE, MEDICAID | LOC: CARD 11:46 | PROVIDERS: ATTEND Family Medicine | DX: R01.1 Cardiac murmur, unspecified (principal); F19.90 Other psychoactive substance use, unspecified, uncomplicated | CPT/HCPCS: 93306 ==

== ENCOUNTER 2018-03-08 15:19 | Emergency (ER) | payer MEDICARE, MEDICAID ==
[~2018-03-08] VITALS: Ht 160 cm; Wt 97.5 kg
[~2018-03-08 15:19] MED LIST changes: +ACHD5005 PO; +HYDR-4226 PO; -HYDR-757 PO
[2018-03-08] MEDS ORDERED: ACHD5005 PO (15:42)
[2018-03-08] MEDS ORDERED: HYDR25TA4 PO (15:42)
[2018-03-08] MEDS ORDERED: NF-CIPDEC OT (15:42)
--- NOTE | 2018-03-08 15:43 | ED EENT ---
History of Present Illness General Chief Complaint: Ear Problems Stated Complaint: RT EAR PAIN,ALL OVER BLOATING History of Present Illness Date Seen by Provider: Mar 08, 2018 Time Seen by Provider: 15:38 Initial Comments Patient is a 47-year-old female who presents to the emergency room with complaints of right ear pain for 2 weeks. She was seen in the emergency room a week ago for a right ear infection that has improved a little bit but now her right ear canal is painful. She also reports that she started swelling in her lower extremities and fingers because she has ran out of her hydrochlorothiazide 25 mg daily. She has an appointment with Dr. Jean-Baptiste on 03/10/18. Location: ear (R) Prearrival Treatment: other Associated Symptoms: No ear drainage, No facial pain/swelling, No fever, No nasal congestion/drainage Allergies and Home Medications Allergies Coded Allergies: lisinopril (Verified Allergy, Severe, 10/27/17) Penicillins (Verified Allergy, Unknown, 07/01/16) Sulfa (Sulfonamide Antibiotics) (Verified Allergy, Unknown, 07/01/16) Home Medications Cefdinir 300 Mg Capsule, 300 MG PO BID Prescribed by: MELISSA MARROQUIN on 02/27/182218 Ciprofloxacin HCl/Dexameth 7.5 Ml Soln, 7.5 ML OT BID 4 drops to to affected ear BID for 10 days. Prescribed by: MELISSA MARROQUIN on 03/08/18 154 Dicyclomine HCl 10 Mg Capsule, 10 MG PO ACHS Prescribed by: INOCENCIO GARCIA on 11/14/17 230 Epinephrine 0.3 Mg/0.3 Ml Auto.injct, 0.3 MG IJ ONCE PRN Stridor or tongue/throat swelling Prescribed by: PALLAVI JUNIOR on 09/16/17 1450 Hydrochlorothiazide 25 Mg Tablet, 25 MG PO DAILY Prescribed by: PALLAVI JUNIOR on 09/16/17 1450 Hydrochlorothiazide 25 Mg Tablet, 25 MG PO DAILY Prescribed by: INOCENCIO GARCIA on 11/14/17 230 Hydrochlorothiazide 25 Mg Tablet, 25 MG PO DAILY Prescribed by: MELISSA MARROQUIN on 03/08/18 1542 Hydrocodone Bit/Acetaminophen 1 Tab Tab, 1 EACH PO Q4H PRN for PAIN Prescribed by: MELISSA MARROQUIN on 02/27/18 2219 Hydrocodone Bit/Acetaminophen 1 Tab Tab, 1 EACH PO Q4H PRN for PAIN Prescribed by: MELISSA MARROQUIN on 03/08/18 1542 Nystatin 15 Gm Cream..g., 1 GM TP BID Prescribed by: INOCENCIO GARCIA on 11/14/17 4766 Patient Home Medication List Home Medication List Reviewed: Yes Review of Systems Review of Systems Constitutional: see HPI; No chills, No fever Ears: Pain (right ear pain/canal pain) Cardiovascular: see HPI, edema (lower extremity and upper extremity edema) All Other Systems Reviewed Negative Unless Noted: Yes Past Lsxqtvn-Xsmifw-Msvvce Hx Past Med/Social Hx: Reviewed Nursing Past Med/Soc Hx Patient Social History Type Used: Cigarettes Recent Foreign Travel: No Contact w/Someone Who Travel: No Recent Hopitalizations: No Immunizations Up To Date Tetanus Booster (TDap): Unknown PED Vaccines UTD: Yes Seasonal Allergies Seasonal Allergies: Yes Past Medical History Surgeries: Yes ( X 2, D&C) Adenoidectomy, Section, Tonsillectomy, Tubal Ligation Respiratory: Yes Chronic Bronchitis Cardiac: Yes Heart Murmur, Hypertension Neurological: No 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 0oz. 97.545417kn; BMI Method:Stated General Appearance: WD/WN, no apparent distress Ears: right ear other (right ear canal is very erythematous, patient has severe pain when chani is pulled on.); left ear canal normal; bilateral ear auricle normal, bilateral ear TM normal Respiratory: chest non-tender, lungs clear, normal breath sounds, no respiratory distress, no accessory muscle use Gastrointestinal: normal bowel sounds, non tender, soft, no organomegaly, no pulsatile mass, tenderness, spleenomegaly Neurologic/Psychiatric: alert, normal mood/affect, oriented x 3 Skin: normal color, warm/dry, other (mild edema to the fingers and lower extremities.) Progress/Results/Core Measures Results/Orders Vital Signs/I&O Progress Progress Note : Time: 15:54 Progress Note I have seen and evaluated the patient. Her tympanic membrane is no longer bulging like when I saw her on her last visit. Although her ear canal is very erythematous and tender on exam. I will be treating her with antibiotic drops. She agrees with plans for discharge. She will be receiving a prescription for hydrochlorothiazide that she is out of for 7 days. She has an appointment with Dr. Jean-Baptiste on 03/10/18. She was instructed to keep this appointment for further checkup. Return precautions were given. Departure Impression Primary Impression: Otitis externa Disposition: 01 HOME, SELF-CARE Condition: Stable/Unchanged Departure-Patient Inst. Decision time for Depature: 15:38 Referrals: CAREY JEAN-BAPTISTE DO (PCP/Family) Primary Care Physician Patient Instructions: Outer Ear Infection (DC) Add. Discharge Instructions: Take medications as directed. Keep your appointment with Dr. Jean-Baptiste as scheduled on 03/10/18. Return back to the emergency room for any worsening symptoms or concerns as needed. All discharge instructions reviewed with patient and/or family. Voiced understanding. Scripts Hydrocodone Bit/Acetaminophen (Hydrocodone/Acetaminophen 5/325mg Tablet) 1 Tab Tab 1 EACH PO Q4H PRN for PAIN, #14 TAB Prov: MELISSA MARROQUIN 03/08/18 Hydrochlorothiazide (Hydrochlorothiazide) 25 Mg Tablet 25 MG PO DAILY for 7 Days, #7 TAB Prov: MELISSA MARROQUIN 03/08/18 Ciprofloxacin HCl/Dexameth (Ciprodex Otic Suspension) 7.5 Ml Soln 7.5 ML OT BID for 10 Days, #1 EA 4 drops to to affected ear BID for 10 days. Prov: MELISSA MARROQUIN 03/08/18 MELISSA MARROQUIN Mar 08, 2018 15:43
[2018-03-08 15:51] VITALS: BP 132/75
== END 2018-03-08 15:51 | disposition home or self-care (01) ==
LOC: EDUNIT# 15:19 → ER 15:22
DX: H60.91 Unspecified otitis externa, right ear (principal); J42 Unspecified chronic bronchitis; I10 Essential (primary) hypertension; F43.10 Post-traumatic stress disorder, unspecified; F31.9 Bipolar disorder, unspecified; F20.9 Schizophrenia, unspecified; Z88.0 Allergy status to penicillin; Z88.2 Allergy status to sulfonamides; Z88.8 Allergy status to other drugs, medicaments and biological substances; Z90.89 Acquired absence of other organs; Z98.51 Tubal ligation status; Z87.19 Personal history of other diseases of the digestive system
CPT/HCPCS: 99282

== ENCOUNTER 2018-03-11 07:29 | Emergency (ER) | payer MEDICARE, MEDICAID ==
[~2018-03-11 07:29] MED LIST changes: -HYDR-700 PO; -PRD20T PO; -RANI150T90 PO
--- OUTSIDE RECORDS SUMMARY | 2018-03-11 07:34 | XMS REPORT | Clinical Summary ---
Author Author [facility] Address Unknown Phone Unavailable Care Team Providers Care Pigment Processor Name Role Phone Provider, Notinsystem_2 PP Unavailable Allergies Active Allergy Reactions Severity Noted Date Comments Lisinopril Anaphylaxis High 02/16/2018 Throat closes up Penicillins Anaphylaxis High 02/16/2018 "It will kill me, I just close up" Sulfa Antibiotics Hives High 02/16/2018 Current Medications Prescription Sig. Disp. Refills Start End Date Status Date metFORMIN (GLUCOPHAGE) Take 1 tablet (500 mg 30 tablet 1 02/19/20 Active 500 MG tabletIndications: total) by mouth at 18 Uncontrolled type 2 bedtime. diabetes mellitus with hyperglycemia, without long-term current use of insulin ([facility]) Blood Glucose Monitoring 1 device by Does not 1 each 0 02/19/20 Active Suppl w/Device apply route 2 (two) times 18 KITIndications: daily. Please dispense Uncontrolled type 2 per pt preference and diabetes mellitus with insurance E11.65 hyperglycemia, without long-term current use of insulin ([facility]) glucose blood test 1 each by Other route 2 100 each 1 02/19/20 Active stripIndications: (two) times daily. Please 18 Uncontrolled type 2 dispense per pt diabetes mellitus with preference and insurance hyperglycemia, without E11.65 long-term current use of insulin ([facility]) lancetsIndications: Use to monitor glucose 200 each 1 02/19/20 Active Uncontrolled type 2 twice daily. Please 18 diabetes mellitus with dispense per pt hyperglycemia, without preference and insurance long-term current use of E11.65 insulin ([facility]) amLODIPine (NORVASC) 5 MG Take 1 tablet (5 mg 30 tablet 0 02/21/20 Active tabletIndications: total) by mouth daily. 18 Hypertension, for 14 days Indications: High Blood Pressure Disorder, for 14 days ARIPiprazole (ABILIFY) 5 Take 1 tablet (5 mg 30 tablet 0 02/21/20 Active MG tabletIndications: total) by mouth daily. 18 mood Indications: mood cetirizine (ZYRTEC) 10 MG Take 1 tablet (10 mg 30 tablet 0 02/20/20 Active tabletIndications: total) by mouth at 18 Seasonal Allergic bedtime. Indications: Rhinitis, for 14 days Hayfever, for 14 days dicyclomine (BENTYL) 10 Take 1 capsule (10 mg 60 capsule 0 02/20/20 Active MG capsuleIndications: total) by mouth 4 (four) 18 Irritable Bowel Syndrome, times daily before meals for 14 days and nightly. Indications: Irritable Bowel Syndrome, for 14 days hydrochlorothiazide Take 1 tablet (25 mg 30 tablet 0 02/21/20 Active (HYDRODIURIL) 25 MG total) by mouth daily. 18 tabletIndications: Indications: High Blood Hypertension Pressure Disorder hydrOXYzine (ATARAX) 25 Take 1 tablet (25 mg 90 tablet 0 02/20/20 Active MG tabletIndications: total) by mouth 3 (three) 18 Anxiety times daily. Indications: Feeling Anxious pantoprazole (PROTONIX) Take 1 tablet (40 mg 30 tablet 0 02/21/20 Active 40 MG tabletIndications: total) by mouth daily. 18 Gastroesophageal Reflux Indications: Disease, for 14 days Gastroesophageal Reflux Disease, for 14 days hydrochlorothiazide Take 25 mg by mouth 02/16/20 02/20/20 Discontin (HYDRODIURIL) 25 MG daily. Take for 14 days 18 18 ued tablet amLODIPine (NORVASC) 5 MG Take 5 mg by mouth daily. 02/16/20 02/20/20 Discontin tabletIndications: for 14 Indications: for 14 days 18 18 ued days Cetirizine HCl 10 MG Take 10 mg by mouth at 02/16/20 02/18/20 Discontin CAPSIndications: for 14 bedtime. Indications: for 18 18 ued days 14 days dicyclomine (BENTYL) 10 Take 10 mg by mouth 4 02/16/20 02/18/20 Discontin MG capsuleIndications: (four) times daily before 18 18 ued for 14 days meals and nightly. Indications: for 14 days pantoprazole (PROTONIX) Take 40 mg by mouth 02/16/20 02/20/20 Discontin 40 MG tabletIndications: daily. Indications: for 18 18 ued for 14 days 14 days cetirizine (ZYRTEC) 10 MG Take 10 mg by mouth at 02/16/20 02/20/20 Discontin tabletIndications: for 14 bedtime. Indications: for 18 18 ued days 14 days dicyclomine (BENTYL) 10 Take 10 mg by mouth 4 02/16/20 02/20/20 Discontin MG capsuleIndications: (four) times daily before 18 18 ued for 14 days meals and nightly. Indications: for 14 days Active Problems Problem Noted Date Bipolar II disorder (HCC) 02/17/2018 CARLOS (generalized anxiety disorder) 02/17/2018 Borderline personality disorder 02/17/2018 PTSD (post-traumatic stress disorder) 02/17/2018 Stimulant use disorder Type 2 diabetes mellitus with other specified complication, without long-term current use of insulin (HCC) Resolved Problems Problem Noted Date Resolved Date Suicidal ideation 02/17/2018 02/19/2018 Family History Medical History Relation Name Comments Alcohol abuse Brother Justinathy Santana Mental illness Brother Tom bipolar asbergars Mental illness Daughter Deandra bipolar Cardozo Alcohol abuse Father Willie Pits Cancer Father Willie Pits Drug abuse Father Willie Pits Diabetes Mother catrina sanz Mental illness Mother catrina sanz bipolar Other Mother catrina sanz obesity Mental illness Son Lutheran adhd Relation Name Status Comments Brother Karen Alive Santana Brother Tom Alive Daughter Deandra Cardozo Alive Father Willie [facility] Mother catrina sanz Alive Son Lutheran Alive Social History Tobacco Use Types Packs/Day Years Used Date Current Some Day Smoker Cigarettes 1 Started: 02/16/1982 Smokeless Tobacco: Never Used Tobacco Cessation: Ready to Quit: No; Counseling Given: No Comments: will order nicotine replacement Alcohol Use Drinks/Week oz/Week Comments No Sex Assigned at Date Recorded Not on file Last Filed Vital Signs Vital Sign Reading Time Taken Blood Pressure 136/87 02/19/2018 8:48 AM CDT Pulse 92 02/19/2018 8:48 AM CDT Temperature 36.2 C (97.1 F) 02/19/2018 8:48 AM CDT Respiratory Rate 20 02/19/2018 8:48 AM CDT Oxygen Saturation 97% 02/19/2018 8:48 AM CDT Inhaled Oxygen - - Concentration Weight 102.1 kg (225 lb) 02/16/2018 10:49 PM CDT Height 160 cm (5' 3") 02/16/2018 10:49 PM CDT Body Mass Index 39.86 02/16/2018 10:49 PM CDT Plan of Treatment Health Maintenance Due Date Last Done Comments Annual Wellness Visit 1969 Diabetic Foot Exam 11/27/1979 Ophthalmology Exam 11/27/1979 Varicella Vaccines (1 of 1982 2 - 2-dose adolescent series) DTaP,Tdap,and Td Vaccines 1988 (1 - Tdap) CERVICAL CANCER SCREENING 1990 Procedures Procedure Name Priority Date/Time Associated Diagnosis Comments PERFORM POINT OF CARE Timed 02/19/2018 Results for this GLUCOSE 12:09 PM CDT procedure are in the results section. PERFORM POINT OF CARE Timed 02/19/2018 Results for this GLUCOSE 8:10 AM CDT procedure are in the results section. PERFORM POINT OF CARE Timed 02/18/2018 Results for this GLUCOSE 9:20 PM CDT procedure are in the results section. PERFORM POINT OF CARE Timed 02/18/2018 Results for this GLUCOSE 5:33 PM CDT procedure are in the results section. PERFORM POINT OF CARE Timed 02/18/2018 Results for this GLUCOSE 12:15 PM CDT procedure are in the results section. DRUG SCREEN (8) MEDICAL Routine 02/17/2018 Results for this 3:02 PM CDT procedure are in the results section. CBC WITH AUTO Timed 02/17/2018 Results for this DIFFERENTIAL 5:44 AM CDT procedure are in the results section. HEMOGLOBIN A1C Add-On 02/17/2018 Results for this 5:44 AM CDT procedure are in the results section. LIPID PANEL Timed 02/17/2018 Results for this 5:44 AM CDT procedure are in the results section. CBC AND DIFFERENTIAL Timed 02/17/2018 Results for this 5:44 AM CDT procedure are in the results section. HCG, SERUM, QUALITATIVE Timed 02/17/2018 Results for this 5:44 AM CDT procedure are in the results section. TSH (REFLEX FREE T4 IF Timed 02/17/2018 Results for this ABNORMAL) 5:44 AM CDT procedure are in the results section. COMPREHENSIVE METABOLIC Timed 02/17/2018 Results for this PANEL 5:44 AM CDT procedure are in the results section. from Last 3 Months Results * Perform Point Of Care Glucose (02/19/2018 12:09 PM) Only the most recent of 5 results within the time period is included. Bedside Glucose 162 (H)Comment: 74 - 106 mg/dL [facility] NovaMeterFollowed ProtocolRN LABORATORY or notified Narrative Performed At Followed Protocol CARLYLE ADAN RN or notified LABORATORY Performing Organization Address City/[facility] Phone Number [facility] [address] [place] [phone] * Drug Screen (8) Medical (02/17/2018 3:02 PM) Amphetamine Positive (A) Negative Cutoff 1000 [facility] Barbiturates Negative Negative Cutoff 200 ng/mL [facility] Benzodiazepines Negative Negative Cutoff 200 ng/mL [facility] Opiates Negative Negative Cutoff 300 ng/mL [facility] PCP Negative Negative Cutoff 25 ng/mL [facility] THC Negative Negative Cutoff 50 ng/mL [facility] MDMA Negative Negative Cutoff 500 ng/mL [facility] Cocaine (Metabolite) Negative Negative Cutoff 300 ng/mL [facility] pH, UA 7.0 5.0 - 8.0 [facility] Specific [place], UA 1.011 1.003 - 1.030 [facility] [id number]-[id number] Protocol Chain of custody not received [facility] Specimen Urine - Urine, Unspecified Source Narrative Performed At Results not confirmed. May not meet forensic requirements. Confirmation by GC/ MS [facility] available upon request. LABORATORY Performing Organization Address City/[facility] Phone Number [facility] [address] [place] [phone] * CBC auto differential (02/17/2018 5:44 AM) WBC 9.4 3.5 - 10.5 10E9/L [facility] RBC 4.41 3.90 - 5.03 10E12/L [facility] Hemoglobin 11.9 (L) 12.0 - 15.5 g/dL [facility] Hematocrit 36.6 34.9 - 44.5 % [facility] MCV 83.0 81.6 - 98.3 fL [facility] MCH 27.0 26.0 - 34.0 pg [facility] MCHC 32.5 31.0 - 37.0 g/dL [facility] RDW 16.6 (H) 11.9 - 15.5 % [facility] Platelets 458 (H) 150 - 450 10E9/L [facility] nRBC 0 <=0 10E9/L [facility] Neutrophils % 57.1 40.0 - 75.0 % [facility] Lymphocytes % 29.4 22.0 - 49.0 % [facility] Monocytes % 8.9 2.0 - 9.0 % [facility] Eosinophils % 4.1 <=5.0 % [facility] Basophils % 0.5 0.0 - 2.5 % [facility] Neutrophils Absolute 5.38 1.70 - 7.00 10E9/L [facility] Lymphocytes Absolute 2.78 0.90 - 2.90 10E9/L [facility] Monocytes Absolute 0.84 0.30 - 0.90 10E9/L [facility] Absolute Eosinophils 0.39 0.05 - 0.50 10E9/L [facility] Basophils Absolute 0.05 0.00 - 0.30 10E9/L [facility] % nRBC 0 % [facility] Specimen Blood Performing Organization Address [facility] Phone Number [facility] [address] [place] [address] * TSH (Reflex Free T4 if abnormal) (02/17/2018 5:44 AM) TSH 1.799 0.400 - 4.000 uIU/mL [facility] Specimen Blood Performing Organization Address [facility] Phone Number [facility] [address] [place] [address] * hCG, serum, qualitative (02/17/2018 5:44 AM) hCG Qual Negative Negative mIU/mL [facility] Specimen Blood Performing Organization Address [facility] Phone Number [facility] [address] [place] [address] * Hemoglobin A1c (02/17/2018 5:44 AM) Hemoglobin A1C 7.6 (H) <5.7 % [facility] Specimen Blood Narrative Performed At [place] [employer] recommendations are as follows: [facility] Normal - A1c less than 5.7% LABORATORY Prediabetes - A1c 5.7 - 6.4% Diabetes - A1c 6.5% or greater Performing Organization Address [facility] Phone Number [facility] [address] [place] [phone] * Lipid panel (02/17/2018 5:44 AM) Cholesterol 186 <=200 mg/dL [facility] Triglycerides 286 (H) 0 - 149 mg/dL [facility] HDL 32 (L) 40 - 90 mg/dL [facility] LDL Cholesterol 97 mg/dL [facility] Non-HDL Cholesterol 154 (H) 0 - 129 mg/dL [facility] Specimen Blood Narrative Performed At [facility] GUIDLINES FOR LDL: [facility] Optimal: <100 mg/dL LABORATORY Near Optimal:100-129 mg/dL Borderline High: 130-159 mg/dL High:160-189 mg/dL Very High: >=190 mg/dL Performing Organization Address [facility] Phone Number [facility] [address] [place] [phone] * Comprehensive metabolic panel (02/17/2018 5:44 AM) Sodium 139 136 - 145 mmol/L [facility] Potassium 3.7 3.6 - 4.9 mmol/L [facility] Chloride 101 99 - 111 mmol/L [facility] CO2 30 20 - 36 mmol/L [facility] Anion Gap 8 [facility] Glucose 139 (H) 74 - 106 mg/dL [facility] Total Protein 5.9 (L) 6.4 - 8.3 g/dL [facility] Albumin 3.5 3.4 - 4.8 g/dL [facility] Calcium 9.0 8.7 - 10.5 mg/dL [facility] BUN, Bld 14 6 - 20 mg/dL [facility] Creatinine 0.58 0.40 - 1.10 mg/dL [facility] eGFR >59 >59 mL/min [facility] Total Bilirubin <0.3 0.0 - 1.2 mg/dL [facility] Alkaline Phosphatase 66 29 - 122 U/L [facility] ALT 21 10 - 46 U/L [facility] AST 25 16 - 37 U/L [facility] Specimen Blood Performing Organization Address City/State/Zipcode Phone Number [facility] [address] [place] [phone] from Last 3 Months
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
== END 2018-03-11 07:58 | disposition left against medical advice (07) ==
LOC: EDUNIT# 07:29 → ER 07:30
DX: L50.9 Urticaria, unspecified (principal)

== ENCOUNTER 2018-03-11 21:31 | Emergency (ER) | payer MEDICARE, MEDICAID ==
[~2018-03-11] VITALS: Ht 167.6 cm; Wt 99.8 kg
[2018-03-11] MEDS ORDERED: FAMOTIDINE 20 MG (PEPCID) TABLET PO ONE (22:00)
[2018-03-11] MEDS ORDERED: LORazepam INJ 2 MG/ML (ATIVAN) VIAL IVP PRN ×2 (22:00→23:30)
[2018-03-11] MEDS ORDERED: methylPREDNISolone 125 MG (Solu-MEDROL) VIAL IVP SCH (22:00)
[2018-03-11] MEDS ORDERED: diphenhydrAMINE 50 MG/ML INJ (BENADRYL) IVP ONE (22:00)
--- NOTE | 2018-03-11 22:05 | ED General ---
General Chief Complaint: Allergic Reaction Stated Complaint: ALLERGIC REACTION,FEELS THROAT IS SWELLING SHUT Nursing Triage Note: PT PRESENTS TO ER WITH COMPLAINT OF ALLERGIC REACTION. STATES SHE HAS HIVES ALL OVER HER BODY AND FEELS THAT HER THROAT IS CLOSING. PT WAS SEEN BY ESTIVEN TODAY AND PRESCRIBED CLARITIN AND PREDNISIONE. Nursing Sepsis Screen: No Definite Risk Source of Information: Patient Exam Limitations: No Limitations History of Present Illness Date Seen by Provider: Mar 11, 2018 Time Seen by Provider: 22:03 Initial Comments To ER with reports of allergic reaction. She is unsure what she is allergic to. The symptoms began yesterday and she reports diffuse itching, intermittent sensation that her throat is closing. She does not have that sensation now. She' s taken several Benadryl tablets today without relief. She's taken prednisone earlier this evening without relief. She did see her primary care provider Dr. JEAN-BAPTISTE today and was given a prescription for prednisone. Timing/Duration: 1-2 Days Severity: Moderate Associated Systoms: No Cough, No Nausea/Vomiting Allergies and Home Medications Allergies Coded Allergies: lisinopril (Verified Allergy, Severe, 10/27/17) Penicillins (Verified Allergy, Unknown, 07/01/16) Sulfa (Sulfonamide Antibiotics) (Verified Allergy, Unknown, 07/01/16) Home Medications Cefdinir 300 Mg Capsule, 300 MG PO BID Prescribed by: MELISSA MARROQUIN on 02/27/182218 Ciprofloxacin HCl/Dexameth 7.5 Ml Soln, 7.5 ML OT BID 4 drops to to affected ear BID for 10 days. Prescribed by: MELISSA MARROQUIN on 03/08/18 154 Dicyclomine HCl 10 Mg Capsule, 10 MG PO ACHS Prescribed by: INOCENCIO GARCIA on 11/14/17 230 Epinephrine 0.3 Mg/0.3 Ml Auto.injct, 0.3 MG IJ ONCE PRN Stridor or tongue/throat swelling Prescribed by: PALLAVI JUNIOR on 09/16/17 1450 Hydrochlorothiazide 25 Mg Tablet, 25 MG PO DAILY Prescribed by: PALLAVI JUNIOR on 09/16/17 1450 Hydrochlorothiazide 25 Mg Tablet, 25 MG PO DAILY Prescribed by: INOCENCIO GARCIA on 11/14/17 230 Hydrochlorothiazide 25 Mg Tablet, 25 MG PO DAILY Prescribed by: MELISSA MARROQUIN on 03/08/18 1542 Hydrocodone Bit/Acetaminophen 1 Tab Tab, 1 EACH PO Q4H PRN for PAIN Prescribed by: MELISSA MARROQUIN on 02/27/18 2219 Hydrocodone Bit/Acetaminophen 1 Tab Tab, 1 EACH PO Q4H PRN for PAIN Prescribed by: MELISSA MARROQUIN on 03/08/18 1542 Nystatin 15 Gm Cream..g., 1 GM TP BID Prescribed by: INOCENCIO GARCIA on 11/14/17 2309 Patient Home Medication List Home Medication List Reviewed: Yes Review of Systems Review of Systems Constitutional: see HPI EENTM: see HPI Respiratory: see HPI Cardiovascular: no symptoms reported Genitourinary: no symptoms reported Musculoskeletal: see HPI Skin: see HPI Psychiatric/Neurological: No Symptoms Reported Hematologic/Lymphatic: No Symptoms Reported Immunological/Allergic: no symptoms reported Past Xibcfuu-Raspay-Vrlapw Hx Patient Social History Alcohol Use: Denies Use Recreational Drug Use: No Smoking Status: Current Everyday Smoker Type Used: Cigarettes Recent Foreign Travel: No Contact w/Someone Who Travel: No Recent Infectious Disease Expo: No Recent Hopitalizations: No Immunizations Up To Date Tetanus Booster (TDap): Unknown PED Vaccines UTD: Yes Seasonal Allergies Seasonal Allergies: Yes Past Medical History Surgeries: Yes ( X 2, D&C) Adenoidectomy, Section, Tonsillectomy, Tubal Ligation Respiratory: Yes Chronic Bronchitis Cardiac: Yes Heart Murmur, Hypertension Neurological: No Reproductive Disorders: No 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 0oz. 99.476064wg; BMI Method:Stated General Appearance: No Apparent Distress, WD/WN Eyes: Bilateral Eye Normal Inspection, Bilateral Eye PERRL, Bilateral Eye EOMI HEENT: PERRL/EOMI, TMs Normal, Normal ENT Inspection, Pharynx Normal, Other ( no edema of the airway structures can be visualized) Neck: Full Range of Motion, Normal Inspection Respiratory: Chest Non Tender, Lungs Clear, Normal Breath Sounds, No Accessory Muscle Use, No Respiratory Distress Cardiovascular: Regular Rate, Rhythm, Normal Peripheral Pulses Gastrointestinal: Normal Bowel Sounds, Non Tender, Soft Extremity: Normal Capillary Refill, Normal Inspection Neurologic/Psychiatric: Alert, Oriented x3 Skin: Normal Color, Warm/Dry, Other (she does have some erythema and high dose scattered about upper and lower extremities. She is actively scratching at these. Since she has persistent pruritus spite Benadryl taken at home most recently one hour ago. I'll give a dose of Ativan 0.5 mg as well.) Progress/Results/Core Measures Suspected Sepsis Recent Fever Within 48 Hours: No Infection Criteria Present: None New/Unexplained Altered Menta: No Sepsis Screen: No Definite Risk SIRS Temperature:98.9 Pulse: 98 Respiratory Rate: 20 Blood Pressure 166 /92 Mean: 116 Results/Orders My Orders Orders - INOCENCIO GARCIA APRN Iv Heplock-Insert (Order) (03/11/18 21:58) Diphenhydramine Injection (Benadryl Inje (03/11/18 22:00) Famotidine Tablet (Pepcid Tablet) (03/11/18 22:00) Methylprednisolone Sod Succ (Solu-Medrol (03/11/18 22:00) Lorazepam Injection (Ativan Injection) (03/11/18 22:00) Medications Given in ED Current Medications Medications Dose Ordered Sig/Stephenie Route Start Time Stop Time Status Last Admin Dose Admin Diphenhydramine HCl 25 mg ONCE ONCE IVP 03/11/18 22:00 03/11/18 22:01 DC 03/11/18 22:31 25 MG Famotidine 20 mg ONCE ONCE PO 03/11/18 22:00 03/11/18 22:01 DC 03/11/18 22:31 20 MG Lorazepam 0.5 mg Q4H PRN IVP 03/11/18 22:00 03/11/18 22:31 0.5 MG Vital Signs/I&O 03/11/18 21:50 Temp 98.9 Pulse 98 Resp 20 B/P (MAP) 166/92 (116) Pulse Ox 97 O2 Delivery Room Air Capillary Refill : Less Than 3 Seconds Blood Pressure Mean: 116 Departure Communication (Admissions) 2306-reports that her itching is "at a5, it was at a 20". We will give one additional dose of lorazepam and discharged home to continue her steroids. Impression Primary Impression: Urticaria Disposition: 01 HOME, SELF-CARE Condition: Stable Departure-Patient Inst. Decision time for Depature: 23:09 Referrals: CAREY JEAN-BAPTISTE DO (PCP/Family) Primary Care Physician Patient Instructions: Skin Rash (DC) Add. Discharge Instructions: 1. Continue Benadryl one tablet every 4 hours. Continue steroids. Follow-up with Dr. Dr. Jean-Baptiste and discuss a referral to Dr. Robbins for allergy testing. All discharge instructions reviewed with patient and/or family. Voiced understanding. INOCENCIO GARCIA BIOLOGICAL SCIENCE AIDE Mar 11, 2018 22:05
--- OUTSIDE RECORDS SUMMARY | 2018-03-11 23:11 | XMS REPORT | Clinical Summary ---
Author Author [facility] Address Unknown Phone Unavailable Care Team Providers Care Pigment Pumper Name Role Phone Provider, Notinsystem_2 PP Unavailable [...] hyperglycemia, without long-term current use of insulin ([facility]) Blood Glucose Monitoring 1 device by Does not 1 each 0 02/19/20 Active Suppl w/Device apply route 2 (two) times 18 KITIndications: daily. Please dispense Uncontrolled type 2 per pt preference and diabetes mellitus with insurance E11.65 hyperglycemia, without long-term current use of insulin ([facility]) glucose blood test 1 each by Other route 2 100 each 1 02/19/20 Active stripIndications: (two) times daily. Please 18 Uncontrolled type 2 dispense per pt diabetes mellitus with preference and insurance hyperglycemia, without E11.65 long-term current use of insulin ([facility]) lancetsIndications: Use to monitor glucose 200 each 1 02/19/20 Active Uncontrolled type 2 twice daily. Please 18 diabetes mellitus with dispense per pt hyperglycemia, without preference and insurance long-term current use of E11.65 insulin ([facility]) amLODIPine (NORVASC) 5 MG Take 1 tablet [...] Mother catrina sanz obesity Mental illness Son Druze adhd Relation Name Status Comments Brother Karen Alive Santana Brother Tom Alive Daughter Deandra Cardozo Alive Father Willie [facility] Mother catrina sanz Alive Son Druze Alive Social History Tobacco Use Types Packs/Day [...] Glucose 162 (H)Comment: 74 - 106 mg/dL [facility] NovaMeterFollowed ProtocolRN LABORATORY or notified Narrative Performed At Followed Protocol CARLYLE ADAN RN or notified LABORATORY Performing Organization Address City/[facility] Cent[facility]ode Phone Number [facility] LABORATORY [address] [place] [phone] * Drug Screen (8) Medical (02/17/2018 3:02 PM) Amphetamine Positive (A) Negative Cutoff 1000 [facility] ng/mL LAB[facility] Barbiturates Negative Negative Cutoff 200 ng/mL [facility] Benzodiazepines Negative Negative Cutoff 200 ng/mL [facility] Opiates Negative Negative Cutoff 300 ng/mL [facility] PCP Negative Negative Cutoff 25 ng/mL [facility] THC Negative Negative Cutoff 50 ng/mL [facility] MDMA Negative Negative Cutoff 500 ng/mL [facility] Cocaine (Metabolite) Negative Negative Cutoff 300 ng/mL [facility] pH, UA 7.0 5.0 - 8.0 [facility] Specific Shannon, UA 1.011 1.003 - 1.030 [facility] LAB[facility] [id number] Protocol Chain of custody not received [facility] LAB[facility] Specimen Urine - Urine, Unspecified Source Narrative Performed At Results not confirmed. May not meet forensic requirements. Confirmation by GC/ MS [facility] available upon request. LABORATORY Performing Organization Address City/[facility] Center[facility]il Phone Number [facility] [address] [place] [address] [phone] * CBC auto differential (02/17/2018 5:44 AM) WBC 9.4 3.5 - 10.5 10E9/L [facility] RBC 4.41 3.90 - 5.03 10E12/L [facility] Hemoglobin 11.9 (L) 12.0 - 15.5 g/dL [facility] Hematocrit 36.6 34.9 - 44.5 % [facility] MCV 83.0 81.6 - 98.3 fL [facility] MCH 27.0 26.0 - 34.0 pg [facility] MCHC 32.5 31.0 - 37.0 g/dL [facility] RDW 16.6 (H) 11.9 - 15.5 % [facility] Platelets 458 (H) 150 - 450 10E9/L [facility] nRBC 0 <=0 10E9/L [facility] Neutrophils % 57.1 40.0 - 75.0 % [facility] Lymphocytes % 29.4 22.0 - 49.0 % [facility] Monocytes % 8.9 2.0 - 9.0 % [facility] Eosinophils % 4.1 <=5.0 % [facility] Basophils % 0.5 0.0 - 2.5 % [facility] Neutrophils Absolute 5.38 1.70 - 7.00 10E9/L [facility] Lymphocytes Absolute 2.78 0.90 - 2.90 10E9/L [facility] Monocytes Absolute 0.84 0.30 - 0.90 10E9/L [facility] Absolute Eosinophils 0.39 0.05 - 0.50 10E9/L [facility] Basophils Absolute 0.05 0.00 - 0.30 10E9/L [facility] % nRBC 0 % [facility] Specimen Blood Performing Organization Address [facility] Phone Number [facility] [address] [place] [address] * TSH (Reflex Free T4 if abnormal) (02/17/2018 5:44 AM) TSH 1.799 0.400 - 4.000 uIU/mL [facility] Specimen Blood Performing Organization Address [facility] Phone Number [facility] [address] [place] [address] * hCG, serum, qualitative (02/17/2018 5:44 AM) hCG Qual Negative Negative mIU/mL [facility] Specimen Blood Performing Organization Address [facility] Phone Number [facility] [address] [place] [address] * Hemoglobin A1c (02/17/2018 5:44 AM) Hemoglobin A1C 7.6 (H) <5.7 % [facility] Specimen Blood Narrative Performed At [employer] [employer] recommendations are as follows: [facility] Normal - A1c less than 5.7% LABORATORY Prediabetes - A1c 5.7 - 6.4% Diabetes - A1c 6.5% or greater Performing Organization Address [facility] Phone Number [facility] [address] [place] [phone] * Lipid panel (02/17/2018 5:44 AM) Cholesterol 186 <=200 mg/dL [facility] Triglycerides 286 (H) 0 - 149 mg/dL [facility] HDL 32 (L) 40 - 90 mg/dL [facility] LDL Cholesterol 97 mg/dL [facility] Non-HDL Cholesterol 154 (H) 0 - 129 mg/dL [facility] Specimen Blood Narrative Performed At [facility] [employer] FOR LDL: [facility] Optimal: <100 mg/dL LABORATORY Near Optimal:100-129 mg/dL Borderline High: 130-159 mg/dL High:160-189 mg/dL Very High: >=190 mg/dL Performing Organization Address [facility] Phone Number [facility] [address] [place] [phone] * Comprehensive metabolic panel (02/17/2018 5:44 AM) Sodium 139 136 - 145 mmol/L [facility] Potassium 3.7 3.6 - 4.9 mmol/L [facility] Chloride 101 99 - 111 mmol/L [facility] CO2 30 20 - 36 mmol/L [facility] Anion Gap 8 [facility] Glucose 139 (H) 74 - 106 mg/dL [facility] Total Protein 5.9 (L) 6.4 - 8.3 g/dL [facility] Albumin 3.5 3.4 - 4.8 g/dL [facility] Calcium 9.0 8.7 - 10.5 mg/dL [facility] BUN, Bld 14 6 - 20 mg/dL [facility] Creatinine 0.58 0.40 - 1.10 mg/dL [facility] eGFR >59 >59 mL/min [facility] Total Bilirubin <0.3 0.0 - 1.2 mg/dL [facility] Alkaline Phosphatase 66 29 - 122 U/L [facility] ALT 21 10 - 46 U/L [facility] AST 25 16 - 37 U/L [facility] Specimen Blood Performing Organization Address City/State/Zipcode Phone Number [facility] [address] [place] [phone] from Last 3 Months
--- OUTSIDE RECORDS SUMMARY | 2018-03-11 23:14 | XMS REPORT | Continuity of Care Document ---
Author Author [facility] Organization [facility] Address Unknown Phone Unavailable Allergies Active Description [...] SULFA (SULFONAMIDE ANTIBIOTICS) UNKNOWN UNKNOWN Yes Penicillins [id number] Drug Allergy Unknown N/A 07/01/2016 Yes Sulfa (Sulfonamide Antibiotics) [id number] Drug Allergy Unknown N/A 2015 Yes lisinopril [id number] Drug Allergy Severe N/A 10/27/2017 Yes LISINOPRIL 23046 DRUG INGREDI High Anaphylaxis 02/16/2018 Yes PENICILLINS [...] OF RECTUM AND ANUS 06/15/2015 JOSE GRAVES [id number] Abdominal Pain 06/15/2015 JOSE GRAVES 12 Back Pain 06/15/2015 ELY, JOSE L A [id number] Abdominal Pain 06/15/2015 ELY, JOSE L A 12 Back Pain 06/15/2015 ELY, JOSE L A [id number] Abdominal Pain 06/15/2015 ELY, JOSE L A 12 Back Pain 06/15/2015 ELY, JOSE L A [id number] Abdominal Pain 06/15/2015 ELY, JOSE L A 12 Back Pain 06/15/2015 ELY, JOSE L A [id number] Abdominal Pain 06/15/2015 ELY, JOSE L A 12 Back Pain 06/15/2015 ELY, JOSE L A [id number] Abdominal Pain 06/15/2015 ELY, JOSE L A [...] Ot R10.30 LOWER ABDOMINAL PAIN, UNSPECIFIED 08/04/2016 TRYA RIVAS DO Ot Z53.21 PROC/TRTMT NOT CRD [...] cardiovascular disorders 02/26/2017 ANNIE BOLANOS Z79.899 Other group home (current) drug therapy 04/08/2017 SAMARA MACARIO MD G89.11 ACUTE PAIN DUE TO TRAUMA 04/08/2017 SAMARA MACARIO MD S93.601A UNSPECIFIED SPRAIN OF RIGHT FOOT, INITIAL ENCOUNTE 04/08/2017 SAMARA MACARIO MD Y92.[address] [facility] [address] (PRIVATE[facility] RESIDEPR 04/08/2017 SAMARA MACARIO MD Y93.89 ACTIVITY, OTHER [...] OF PREG, CHLDBR 06/04/2017 GARCIA, PETER J PRIVATE TUTOR Ot Z90.89 ACQUIRED ABSENCE OF OTHER ORGANS 06/04/2017 INOCENCIO GARCIA PRIVATE TUTOR Ot Z98.51 TUBAL LIGATION STATUS 08/15/2017 NELIDA [...] OTHER SPECIFIED FACTORS, INI 08/26/2017 INOCENCIO GARCIA PRIVATE TUTOR Ot Z87.59 PERSONAL HISTORY OF COMP OF PREG, CHLDBR 08/26/2017 INOCENCIO GARCIA PRIVATE TUTOR Ot Z88.0 ALLERGY STATUS TO PENICILLIN 08/26/2017 INOCENCIO GARCIA PRIVATE TUTOR Ot Z88.2 ALLERGY STATUS TO SULFONAMIDES STATUS 08/26/2017 INOCENCIO GARCIA APRN Ot Z90.89 ACQUIRED ABSENCE OF OTHER ORGANS 08/26/2017 INOCENCIO GARCIA APRN Ot Z98.51 TUBAL LIGATION STATUS 09/14/2017 PADMA MEDLEY Ot F17.210 NICOTINE DEPENDENCE, CIGARETTES, UNCOMPL 09/14/2017 PADMA MEDLEY Ot I10 ESSENTIAL (PRIMARY) HYPERTENSION 09/14/2017 PADMA MEDLEY Ot K29.00 ACUTE GASTRITIS WITHOUT BLEEDING 09/14/2017 PADMA MDELEY Ot R10.13 EPIGASTRIC PAIN 09/14/2017 PADMA MEDLEY [...] I10 ESSENTIAL (PRIMARY) HYPERTENSION 10/27/2017 VERONICA TORRES ELECTRICIAN TECHNICIAN Ot Z03.89 ENCNTR FOR OBS FOR OTH SUSPECTED DISEASE 10/27/2017 VERONICA TORRES ELECTRICIAN TECHNICIAN Ot Z87.59 PERSONAL HISTORY OF COMP OF PREG, CHLDBR 10/27/2017 VERONICA TORRES ELECTRICIAN TECHNICIAN Ot Z88.0 ALLERGY STATUS TO PENICILLIN 10/27/2017 VERONICA TORRES ELECTRICIAN TECHNICIAN Ot Z88.2 ALLERGY STATUS TO SULFONAMIDES STATUS 10/27/2017 VERONICA TORRES ELECTRICIAN TECHNICIAN Ot Z88.8 ALLERGY STATUS TO OTH DRUG/MEDS/BIOL SUB 10/27/2017 VERONICA TORRES ELECTRICIAN TECHNICIAN Ot Z90.89 ACQUIRED ABSENCE OF OTHER ORGANS [...] in childhood 02/19/2018 NIA ANDRADE Z79.899 Other c developer (current) drug therapy 02/19/2018 NIA ANDRADE Z86.010 [...] MICROSCOPY 06/15/2015 CBC CBC WITH DIFF 06/15/2015 [facility] COMPREHENSIVE METABOLIC PANEL 06/15/[address] ABDOMEN AND PELVIS W CONTRAST 06/15/2015 LIP LIPASE 06/15/2015 PREGU HCG URINE 06/15/2015 UA URINALYSIS AUTOMATED W MICROSCOPY 06/15/2015 45766 DRAWING AND HANDLING - VENOUS 02/26/2017 24874 COMPREHENSIVE PANEL 02/26/2017 55512 LIPID PROFILE 02/26/2017 66058 CBC/HEMOGRAM WITH 02/26/2017 78449 RPR, SEND OUT 02/26/2017 27725 HIV-1 AND HIV-2 02/26/2017 54503 HEPATITIS C ANTIBODY, SEND OUT 02/26/2017 08198 HEPATITIS B SURFACE, SEND OUT 02/26/2017 43552 NEW COMPREHENSIVE 02/26/2017 Results Test Result Range [...] Status Pt. Type Provider Facility Loc./Unit Complaint [id number] 01/29/2017 13:16:09 01/29/2017 23:59:59 CLS Outpatient Heraclio Juarez [id number] 08/27/2012 13:20:00 Document Registration [id number] 01/28/2018 16:00:00 01/28/2018 23:59:59 CLS Outpatient APOLINAR HIDALGO [facility] [id number] 02/16/2018 22:15:00 02/19/2018 13:13:00 DIS Inpatient NIA ANDRADE [facility] [id number] 04/08/2017 15:26:00 04/08/2017 16:08:00 DIS Emergency AMIARH LORENZO, SAMARA Mendez [facility] ED [id number] 07/27/2016 07:05:00 Document Registration [id number] 01/21/2018 11:46:00 01/21/2018 23:59:59 CLS Outpatient CAREY JEAN-BAPTISTE DO [facility] CARD HISTORY OF IV DRUG USE [id number] 01/07/2018 09:40:00 01/07/2018 23:59:59 CLS Outpatient CAREY JEAN-BAPTISTE DO [facility] RAD PAIN IN RIGHT SINUS [id number] 01/07/2018 11:57:00 01/07/2018 13:39:00 DIS Emergency KT MARTÍNEZ MD [facility] ER CHEST PAIN [id number] 11/14/2017 21:14:00 11/14/2017 23:13:00 DIS Emergency INOCENCIO GARCIA APRN [facility] ER BP HIGH,ABD PAIN [id number] 10/27/2017 19:40:00 10/27/2017 20:34:00 DIS Emergency VERONICA TORRES RAHEL [facility] ER BUG IN R EAR [id number] 09/16/2017 13:27:00 09/16/2017 15:03:00 DIS Emergency PALLAVI JUNIOR MD [facility] ER THROAT SWELLING [id number] 09/15/2017 14:55:00 09/15/2017 23:59:59 CLS Preadmit SHANDA SWIFT ELECTRICIAN TECHNICIAN [facility] RAD ABDOMINAL BLOATING R14.0 [id number] 09/14/2017 13:10:00 09/14/2017 17:02:00 DIS Emergency PADMA MEDLEY [facility] ER STOMACH BLOATED [id number] 08/24/2017 12:51:00 08/24/2017 14:35:00 DIS Emergency INOCENCIO GARCIA APRN [facility] ER STITCHES COME OUT FROM ALTERCATION THURSDAY [id number] 08/15/2017 12:41:00 08/15/2017 13:43:00 DIS Emergency NELIDA SANABRIA MD [facility] ER R LEG POSS BLOOD CLOT IN CALF [id number] 06/01/2017 11:12:00 06/01/2017 13:03:00 DIS Emergency INOCENCIO GARCIA APRN [facility] ER HEADACHES VISION DISTURBANCE [id number] 04/19/2017 18:17:00 04/19/2017 20:35:00 DIS Emergency TINO DE LA PAZ DO [facility] ER FALL OFF CURB/R FOOT PAIN [id number] 08/04/2016 16:10:00 08/04/2016 16:43:00 DIS Emergency TYRA RIVAS DO [facility] ER GROIN PAIN [id number] 07/01/2016 08:51:00 07/01/2016 11:01:00 DIS Emergency MARCIN WALKER MD [facility] ER ABD PAIN MULTIPLE COMPLAINTS [id number] 02/26/2017 08:44:00 02/26/2017 23:59:59 CLS Outpatient LUIS MIGUEL, [facility] [id number] 02/26/2017 08:44:00 Document Registration [id number] 06/10/2016 08:06:00 Document Registration [id number] 04/08/2017 15:23:00 04/08/2017 [facility]59:[id number]/27/2017 13:12:00 Document Registration [id number] 08/23/2017 02:44:00 08/23/2017 03:40:00 DIS Outpatient Garcia, [facility] ER [id number] 08/23/2017 03:23:27 Document Registration [id number] 06/15/2015 17:50:00 06/15/2015 22:35:00 DIS Emergency JOSE GRAVES [facility] [id number] 02/14/2018 17:46:41 Document Registration
[2018-03-11 23:31] VITALS: BP 166/92
== END 2018-03-11 23:31 | disposition home or self-care (01) ==
LOC: EDUNIT# 21:31 → ER 21:32
DX: L50.9 Urticaria, unspecified (principal); I10 Essential (primary) hypertension; F31.9 Bipolar disorder, unspecified; F43.10 Post-traumatic stress disorder, unspecified; F20.9 Schizophrenia, unspecified; F17.210 Nicotine dependence, cigarettes, uncomplicated; Z98.890 Other specified postprocedural states; Z87.19 Personal history of other diseases of the digestive system; Z90.89 Acquired absence of other organs; Z98.51 Tubal ligation status; Z88.0 Allergy status to penicillin; Z88.2 Allergy status to sulfonamides; Z88.8 Allergy status to other drugs, medicaments and biological substances
CPT/HCPCS: 96374; 96375; 96376

== ENCOUNTER → 2018-03-11 | Outpatient (CLI) | payer MEDICARE, MEDICAID ==
[~2018-03-11] MED LIST changes: +HYDR-700 PO; +NF-CIPDEC OT; +PRD20T PO; +RANI150T90 PO
[2018-03-11 08:11] LABS: HEMOGLOBIN 13.1 G/DL (11.5-16.0); RED BLOOD COUNT 4.89 10^6/uL (4.35-5.85); RED CELL DISTRIBUTION WIDTH 17.5 % (10.0-14.5); WHITE BLOOD COUNT 9.9 10^3/uL (4.3-11.0)
[2018-03-11 08:29] LABS: ALANINE AMINOTRANSFERASE 13 U/L (0-55); ALBUMIN 3.9 GM/DL (3.2-4.5); ALKALINE PHOSPHATASE 60 U/L (40-136); BILIRUBIN,TOTAL 0.4 MG/DL (0.1-1.0); BUN/CREATININE RATIO 18; CALCIUM 9.2 MG/DL (8.5-10.1); CARBON DIOXIDE 26 MMOL/L (21-32); CHLORIDE 100 MMOL/L (98-107); CHOLESTEROL 205 MG/DL (< 200); CREATININE SERUM 0.84 MG/DL (0.60-1.30); GFR ESTIMATED > 60; GLUCOSE 187 MG/DL (70-105); HDL CHOLESTEROL 42 MG/DL (40-60); SODIUM 136 MMOL/L (135-145); TOTAL PROTEIN 7.1 GM/DL (6.4-8.2); TRIGLYCERIDES 401 MG/DL (<150); VLDL CHOLESTEROL 80 MG/DL (5-40)
== END ==
LOC: LAB 07:53
PROVIDERS: ATTEND Family Medicine
DX: E11.9 Type 2 diabetes mellitus without complications (principal); F31.9 Bipolar disorder, unspecified; I10 Essential (primary) hypertension
CPT/HCPCS: 36415; 80053; 80061; 83036; 85027

== ENCOUNTER 2018-03-14 07:49 | Emergency (ER) | payer MEDICARE, MEDICAID ==
[~2018-03-14] VITALS: Ht 172.7 cm; Wt 81.6 kg
--- OUTSIDE RECORDS SUMMARY | 2018-03-14 07:54 | XMS REPORT | Clinical Summary ---
Author Author [facility] Address Unknown Phone Unavailable Care Team Providers Care Housekeeper Head Name Role Phone Provider, Notinsystem_2 PP Unavailable [...] long-term current use of insulin ([facility]) Blood Glucose Monitoring 1 device by Does not 1 each 0 02/19/20 Active Suppl w/Device apply route 2 (two) times 18 KITIndications: daily. Please dispense Uncontrolled type 2 per pt preference and diabetes mellitus with insurance E11.65 hyperglycemia, without long-term current use of insulin ([facility]) glucose blood test 1 each by Other route 2 100 each 1 02/19/20 Active stripIndications: (two) times daily. Please 18 Uncontrolled type 2 dispense per pt diabetes mellitus with preference and insurance hyperglycemia, without E11.65 long-term current use of insulin ([facility]) lancetsIndications: Use to monitor glucose 200 each 1 02/19/20 Active Uncontrolled type 2 twice daily. Please 18 diabetes mellitus with dispense per pt hyperglycemia, without preference and insurance long-term current use of E11.65 insulin ([facility]) amLODIPine (NORVASC) 5 MG Take 1 tablet [...] Mother catrina sanz obesity Mental illness Son Samaritan adhd Relation Name Status Comments Brother Karen Alive [place] Brother Tom Alive Daughter Deandra Cardozo Alive Father [facility] Mother catrina sanz Alive Son [facility]itan Alive Social History Tobacco Use Types Packs/Day [...] Glucose 162 (H)Comment: 74 - 106 mg/dL [facility] NovaMeterFollowed ProtocolRN LABORATORY or notified Narrative Performed At Followed Protocol CARLYLE ADAN RN or notified LABORATORY Performing Organization Address City/[facility] Cent[facility]ode Phone Number [facility] LABORATORY [address] [place] [phone] * Drug Screen (8) Medical (02/17/2018 3:02 PM) Amphetamine Positive (A) Negative Cutoff 1000 [facility] Barbiturates Negative Negative Cutoff 200 ng/mL [facility] Benzodiazepines Negative Negative Cutoff 200 ng/mL [facility] Opiates Negative Negative Cutoff 300 ng/mL [facility] PCP Negative Negative Cutoff 25 ng/mL [facility] THC Negative Negative Cutoff 50 ng/mL [facility] MDMA Negative Negative Cutoff 500 ng/mL [facility] Cocaine (Metabolite) Negative Negative Cutoff 300 ng/mL [facility] LABORATORY pH, UA 7.0 5.0 - 8.0 [facility] LABORATORY Specific [place], UA 1.011 1.003 - 1.030 [facility] LABORATORY [id number] Protocol Chain of custody not received [facility] LABORATORY Specimen Urine - Urine, Unspecified Source Narrative Performed At Results not confirmed. May not meet forensic requirements. Confirmation by GC/ MS [facility] available upon request. LABORATORY Performing Organization Address City/[facility] Centercotn Phone Number [facility] LABORATORY [address] [place] [address] [phone] * CBC auto differential (02/17/2018 5:44 AM) WBC 9.4 3.5 - 10.5 10E9/L [facility] LABORATORY RBC 4.41 3.90 - 5.03 10E12/L [facility] LABOR[facility]ORY Hemoglobin 11.9 (L) 12.0 - 15.5 g/dL [facility] LABOR[facility]ORY Hematocrit 36.6 34.9 - 44.5 % [facility] LAB[facility] MCV 83.0 81.6 - 98.3 fL [facility] LAB[facility] MCH 27.0 26.0 - 34.0 pg [facility] LABORATORY MCHC 32.5 31.0 - 37.0 g/dL [facility] LABORATORY RDW 16.6 (H) 11.9 - 15.5 % [facility] LABORATORY Platelets 458 (H) 150 - 450 10E9/L [facility] LABORATORY nRBC 0 <=0 10E9/L [facility] LABOR[facility]ORY Neutrophils % 57.1 40.0 - 75.0 % [facility] LAB[facility] Lymphocytes % 29.4 22.0 - 49.0 % [facility] Monocytes % 8.9 2.0 - 9.0 % [facility] LABOR[facility] Eosinophils % 4.1 <=5.0 % [facility] LAB[facility] Basophils % 0.5 0.0 - 2.5 % [facility] LAB[facility] Neutrophils Absolute 5.38 1.70 - 7.00 10E9/L [facility] Lymphocytes Absolute 2.78 0.90 - 2.90 10E9/L [facility] LAB[facility] Monocytes Absolute 0.84 0.30 - 0.90 10E9/L [facility] LABOR[facility] Absolute Eosinophils 0.39 0.05 - 0.50 10E9/L [facility] LAB[facility] Basophils Absolute 0.05 0.00 - 0.30 10E9/L [facility] LABORATORY % nRBC 0 % [facility] LABORATORY Specimen Blood Performing Organization Address [facility] Phone Number [facility] LABORATORY [address] [place] [address] * TSH (Reflex Free T4 if abnormal) (02/17/2018 5:44 AM) TSH 1.799 0.400 - 4.000 uIU/mL [facility] LABOR[facility] Specimen Blood Performing Organization Address [facility] Phone Number [facility] [address] [place] [address] [phone] * hCG, serum, qualitative (02/17/2018 5:44 AM) hCG Qual Negative Negative mIU/mL [facility] LAB[facility] Specimen Blood Performing Organization Address [facility] Phone Number [facility] LAB[facility] [address] [place] [address] * Hemoglobin A1c (02/17/2018 5:44 AM) Hemoglobin A1C 7.6 (H) <5.7 % [facility] LABORATORY Specimen Blood Narrative Performed At [place] [employer] recommendations are as follows: [facility] Normal - A1c less than 5.7% LABORATORY Prediabetes - A1c 5.7 - 6.4% Diabetes - A1c 6.5% or greater Performing Organization Address [facility] Phone Number [facility] LAB[facility]AT[facility] [address] [place] [phone] * Lipid panel (02/17/2018 5:44 AM) Cholesterol 186 <=200 mg/dL [facility] LAB[facility] Triglycerides 286 (H) 0 - 149 mg/dL [facility] HDL 32 (L) 40 - 90 mg/dL [facility] LDL Cholesterol 97 mg/dL [facility] Non-HDL Cholesterol 154 (H) 0 - 129 mg/dL [facility] Specimen Blood Narrative Performed At [facility] GUIDLINES FOR LDL: [facility] Optimal: <100 mg/dL LABORATORY Near Optimal:100-129 mg/dL Borderline High: 130-159 mg/dL High:160-189 mg/dL Very High: >=190 mg/dL Performing Organization Address [facility] Phone Number [facility] [address] [place] [phone] * Comprehensive metabolic panel (02/17/2018 5:44 AM) Sodium 139 136 - 145 mmol/L [facility] Potassium 3.7 3.6 - 4.9 mmol/L [facility] Chloride 101 99 - 111 mmol/L [facility] CO2 30 20 - 36 mmol/L [facility] Anion Gap 8 [facility] Glucose 139 (H) 74 - 106 mg/dL [facility] Total Protein 5.9 (L) 6.4 - 8.3 g/dL [facility] Albumin 3.5 3.4 - 4.8 g/dL [facility] Calcium 9.0 8.7 - 10.5 mg/dL [facility] BUN, Bld 14 6 - 20 mg/dL [facility] Creatinine 0.58 0.40 - 1.10 mg/dL [facility] eGFR >59 >59 mL/min [facility] Total Bilirubin <0.3 0.0 - 1.2 mg/dL [facility] Alkaline Phosphatase 66 29 - 122 U/L [facility] ALT 21 10 - 46 U/L [facility] AST 25 16 - 37 U/L [facility] Specimen Blood Performing Organization Address City/State/Zipcode Phone Number [facility] LABORATORY [address] [place] [phone] from Last 3 Months
--- OUTSIDE RECORDS SUMMARY | 2018-03-14 07:58 | XMS REPORT | Continuity of Care Document ---
Author Author [facility] Organization [facility] Address Unknown Phone Unavailable Allergies Active [...] SULFA (SULFONAMIDE ANTIBIOTICS) UNKNOWN UNKNOWN Yes Penicillins [id number] Drug Allergy Unknown N/A 07/01/2016 Yes Sulfa (Sulfonamide Antibiotics) [id number] Drug Allergy Unknown N/A 2015 Yes lisinopril [id number] Drug Allergy Severe N/A 10/27/2017 Yes LISINOPRIL 50958 DRUG INGREDI High Anaphylaxis 02/16/2018 Yes PENICILLINS [...] OF RECTUM AND ANUS 06/15/2015 JOSE GRAVES [id number] Abdominal Pain 06/15/2015 JOSE GRAVES 12 Back Pain 06/15/2015 ELY, JOSE L A [id number] Abdominal Pain 06/15/2015 ELY, JOSE L A 12 Back Pain 06/15/2015 ELY, JOSE L A [id number] Abdominal Pain 06/15/2015 ELY, JOSE L A 12 Back Pain 06/15/2015 ELY, JOSE L A [id number] Abdominal Pain 06/15/2015 ELY, JOSE L A 12 Back Pain 06/15/2015 ELY, JOSE L A [id number] Abdominal Pain 06/15/2015 ELY, JOSE L A 12 Back Pain 06/15/2015 ELY, JOSE L A [id number] Abdominal Pain 06/15/2015 ELY, JOSE L A [...] A Ot R10.84 GENERALIZED ABDOMINAL PAIN 08/04/2016 TRYA RIVAS DO Ot R10.30 LOWER ABDOMINAL PAIN, [...] cardiovascular disorders 02/26/2017 ANNIE BOLANOS Z79.899 Other longterm (current) drug therapy 04/08/2017 SAMARA MACARIO MD G89.11 ACUTE PAIN DUE TO TRAUMA 04/08/2017 SAMARA MACARIO MD S93.601A UNSPECIFIED SPRAIN OF RIGHT FOOT, INITIAL ENCOUNTE 04/08/2017 SAMARA MACARIO MD Y92.[address] [facility] [address] IN [facility]PRIVATE[facility] RESIDENY 04/08/2017 SAMARA MACARIO MD Y93.89 ACTIVITY, OTHER [...] OF PREG, CHLDBR 06/04/2017 GARCIA, PETER J TROLLEY OPERATOR Ot Z90.89 ACQUIRED ABSENCE OF OTHER ORGANS 06/04/2017 INOCENCIO GARCIA TROLLEY OPERATOR Ot Z98.51 TUBAL LIGATION STATUS 08/15/2017 NELIDA [...] OTHER SPECIFIED FACTORS, INI 08/26/2017 INOCENCIO GARCIA TROLLEY OPERATOR Ot Z87.59 PERSONAL HISTORY OF COMP OF PREG, CHLDBR 08/26/2017 INOCENCIO GARCIA TROLLEY OPERATOR Ot Z88.0 ALLERGY STATUS TO PENICILLIN 08/26/2017 INOCENCIO GARCIA TROLLEY OPERATOR Ot Z88.2 ALLERGY STATUS TO SULFONAMIDES [...] I10 ESSENTIAL (PRIMARY) HYPERTENSION 10/27/2017 VERONICA TORRES MEDIA PROMOTER Ot Z03.89 ENCNTR FOR OBS FOR OTH SUSPECTED DISEASE 10/27/2017 VERONICA TORRES MEDIA PROMOTER Ot Z87.59 PERSONAL HISTORY OF COMP OF PREG, CHLDBR 10/27/2017 VERONICA TORRES MEDIA PROMOTER Ot Z88.0 ALLERGY STATUS TO PENICILLIN 10/27/2017 VERONICA TORRES MEDIA PROMOTER Ot Z88.2 ALLERGY STATUS TO SULFONAMIDES STATUS 10/27/2017 VERONICA TORRES MEDIA PROMOTER Ot Z88.8 ALLERGY STATUS TO OTH DRUG/MEDS/BIOL SUB 10/27/2017 VERONICA TORRES MEDIA PROMOTER Ot Z90.89 ACQUIRED ABSENCE OF OTHER ORGANS [...] in childhood 02/19/2018 NIA ANDRADE Z79.899 Other intermediate manager (current) drug therapy 02/19/2018 NIA ANDRADE Z86.010 [...] MICROSCOPY 06/15/2015 CBC CBC WITH [facility]OL[facility]EL 06/15/[address] ABDOMEN AND PELVIS W CONTRAST 06/15/2015 LIP LIPASE 06/15/2015 PREGU HCG URINE 06/15/2015 UA URINALYSIS AUTOMATED W MICROSCOPY 06/15/2015 18847 DRAWING AND HANDLING - VENOUS 02/26/2017 91652 COMPREHENSIVE PANEL 02/26/2017 05629 LIPID PROFILE 02/26/2017 09726 CBC/HEMOGRAM WITH 02/26/2017 85214 RPR, SEND OUT 02/26/2017 15696 HIV-1 AND HIV-2 02/26/2017 80079 HEPATITIS C ANTIBODY, SEND OUT 02/26/2017 20012 HEPATITIS B SURFACE, SEND OUT 02/26/2017 94500 NEW COMPREHENSIVE 02/26/2017 Results Test Result Range [...] Status Pt. Type Provider Facility Loc./Unit Complaint [id number] 01/29/2017 13:16:09 01/29/2017 23:59:59 CLS Outpatient Heraclio Juarez [id number] 08/27/2012 13:20:00 Document Registration [id number] 01/28/2018 16:00:00 01/28/2018 23:59:59 CLS Outpatient APOLINAR HIDALGO LAC [facility] [id number] 02/16/2018 22:15:00 02/19/2018 13:13:00 DIS Inpatient RAYMOND NIA [facility] [id number] 04/08/2017 15:26:00 04/08/2017 16:08:00 DIS Emergency AMIRAH LORENZO, SAMARA Mendez [facility] ED [id number] 07/27/2016 07:05:00 Document Registration [id number] 02/27/2018 21:50:00 02/27/2018 22:33:00 DIS Emergency MELISSA MARROQUIN [facility] ER EARACHE [id number] 01/21/2018 11:46:00 01/21/2018 23:59:59 CLS Outpatient CAREY JEAN-BAPTISTE DO [facility] CARD HISTORY OF IV DRUG USE [id number] 01/07/2018 09:40:00 01/07/2018 23:59:59 CLS Outpatient CAREY JEAN-BAPTSITE DO [facility] RAD PAIN IN RIGHT SINUS [id number] 01/07/2018 11:57:00 01/07/2018 13:39:00 DIS Emergency KT MARTÍNEZ MD [facility] ER CHEST PAIN [id number] 11/14/2017 21:14:00 11/14/2017 23:13:00 DIS Emergency INOCENCIO GARCIA APRN [facility] ER BP HIGH,ABD PAIN [id number] 10/27/2017 19:40:00 10/27/2017 20:34:00 DIS Emergency MELISSA VERONICA RAHEL [facility] ER BUG IN R EAR [id number] 09/16/2017 13:27:00 09/16/2017 15:03:00 DIS Emergency PALLAVI JUNIOR MD [facility] ER THROAT SWELLING [id number] 09/15/2017 14:55:00 09/15/2017 23:59:59 CLS Preadmit SHANDA SWIFT [facility] RAD ABDOMINAL BLOATING R14.0 [id number] 09/14/2017 13:10:00 09/14/2017 17:02:00 DIS Emergency PADMA MEDLEY [facility] ER STOMACH BLOATED [id number] 08/24/2017 12:51:00 08/24/2017 14:35:00 DIS Emergency INOCENCIO GARCIA APRN [facility] ER STITCHES COME OUT FROM ALTERCATION THURSDAY [id number] 08/15/2017 12:41:00 08/15/2017 13:43:00 DIS Emergency NELIDA SANABRIA MD [facility] ER R LEG POSS BLOOD CLOT IN CALF [id number] 06/01/2017 11:12:00 06/01/2017 13:03:00 DIS Emergency INOCENCIO GARCIA APRN [facility] ER HEADACHES VISION DISTURBANCE [id number] 04/19/2017 18:17:00 04/19/2017 20:35:00 DIS Emergency TINO DE LA PAZ DO [facility] ER FALL OFF CURB/R FOOT PAIN [id number] 08/04/2016 16:10:00 08/04/2016 16:43:00 DIS Emergency TYRA RIVAS DO [facility] ER GROIN PAIN [id number] 07/01/2016 08:51:00 07/01/2016 11:01:00 DIS Emergency MARCIN WALKER MD [facility] ER ABD PAIN MULTIPLE COMPLAINTS [id number] 02/26/2017 08:44:00 02/26/2017 23:59:59 CLS Outpatient LUIS MIGUEL [facility] [id number] 02/26/2017 08:44:00 Document Registration [id number] 06/10/2016 08:06:00 Document Registration [id number] 04/08/2017 15:23:00 04/08/2017 23:59:59 CLS [facility] ED [id number] 02/27/2017 13:12:00 Document Registration [id number] 08/23/2017 02:44:00 08/23/2017 03:40:00 DIS Outpatient Pedro Luis [facility] ER [id number] 08/23/2017 03:23:27 Document Registration [id number] 06/15/2015 17:50:00 06/15/2015 22:35:00 DIS Emergency JOSE GRAVES [facility] [id number] 02/14/2018 17:46:41 Document Registration
--- NOTE | 2018-03-14 08:13 | ED Integumentary General ---
General Chief Complaint: Allergic Reaction Stated Complaint: HIVES ALL OVER BODY Nursing Triage Note: complaint of hives generalized thourghout. states x1 week, can not find reasoning. Source: patient Exam Limitations: no limitations History of Present Illness Date Seen by Provider: Mar 14, 2018 Time Seen by Provider: 07:54 Initial Comments Patient presents to ER by private conveyance with chief complaint she denies having hives for the past week. She went saw her doctor who started her on some steroid taper for 6 days and she also stating Benadryl every 6 hours but as well as putting a topical Benadryl ointment on her skin for the itching but is not helping. She says when she started the steroids and Benadryl and loratadine from the ER couple days ago things got better for about 24 hours and then they came back worse. She's not having stridorous she does feel some tightness in her throat. She does not history of asthma or COPD. She said this happened once before about 6 months ago but she never did and identify a source then either. She has not changed any of her soaps detergents and she does not use lotion. She does not have anything new in her medications except she started metformin for diabetes approximately one month ago. She does have a known allergy to shellfish but she says she does not eat that although last week she was having fish several times, tilapia. Allergies and Home Medications Allergies Coded Allergies: lisinopril (Verified Allergy, Severe, 10/27/17) Penicillins (Verified Allergy, Unknown, 07/01/16) Sulfa (Sulfonamide Antibiotics) (Verified Allergy, Unknown, 07/01/16) Home Medications Cefdinir 300 Mg Capsule, 300 MG PO BID Prescribed by: MELISSA MARROQUIN on 02/27/18 2219 Ciprofloxacin HCl/Dexameth 7.5 Ml Soln, 7.5 ML OT BID 4 drops to to affected ear BID for 10 days. Prescribed by: MELISSA MARROQUIN on 03/08/18 1542 Dicyclomine HCl 10 Mg Capsule, 10 MG PO ACHS Prescribed by: INOCENCIO GARCIA on 11/14/17 2302 Epinephrine 0.3 Mg/0.3 Ml Auto.injct, 0.3 MG IJ ONCE PRN Stridor or tongue/throat swelling Prescribed by: PALLAVI JUNIOR on 09/16/17 1450 Hydrochlorothiazide 25 Mg Tablet, 25 MG PO DAILY Prescribed by: PALLAVI JUNIOR on 09/16/17 1450 Hydrochlorothiazide 25 Mg Tablet, 25 MG PO DAILY Prescribed by: INOCENCIO GARCIA on 11/14/17 230 Hydrochlorothiazide 25 Mg Tablet, 25 MG PO DAILY Prescribed by: MELISSA MARROQUIN on 03/08/18 1542 Hydrocodone Bit/Acetaminophen 1 Tab Tab, 1 EACH PO Q4H PRN for PAIN Prescribed by: MELISSA MARROQUIN on 02/27/18 221 Hydrocodone Bit/Acetaminophen 1 Tab Tab, 1 EACH PO Q4H PRN for PAIN Prescribed by: MELISSA MARROQUIN on 03/08/18 154 Nystatin 15 Gm Cream..g., 1 GM TP BID Prescribed by: INOCENCIO GARCIA on 11/14/172308 Patient Home Medication List Home Medication List Reviewed: Yes Review of Systems Review of Systems Constitutional: No chills, No diaphoresis EENTM: No hearing loss, No ear pain Respiratory: No cough, No dyspnea on exertion Cardiovascular: No chest pain, No edema Gastrointestinal: No abdominal pain, No nausea Past Bttbylq-Lpdwgg-Fktgwd Hx Patient Social History Alcohol Use: Occasionally Uses Recreational Drug Use: No Smoking Status: Current Everyday Smoker Type Used: Cigarettes 2nd Hand Smoke Exposure: Yes Recent Foreign Travel: No Contact w/Someone Who Travel: No Recent Infectious Disease Expo: No Recent Hopitalizations: No Physical Abuse: No Sexual Abuse: No Mistreated: No Immunizations Up To Date Tetanus Booster (TDap): Unknown PED Vaccines UTD: Yes Seasonal Allergies Seasonal Allergies: Yes Past Medical History Surgeries: Yes ( X 2, D&C) Adenoidectomy, Section, Tonsillectomy, Tubal Ligation Respiratory: Yes Chronic Bronchitis Cardiac: Yes Heart Murmur, Hypertension Neurological: No Reproductive Disorders: 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: Tubal Ligation, Menopausal Genitourinary: No Gastrointestinal: Yes Irritable Bowel Musculoskeletal: No Endocrine: No HEENT: Yes (S/P TONSILLECTOMY) Tonsilitis Cancer: No Psychosocial: Yes PTSD, Bipolar, Schizophrenia Integumentary: No Blood Disorders: No Family Medical History No Pertinent Family Hx Physical Exam Vital Signs Vital Signs - First Documented 03/14/18 07:59 Temp 98.9 Pulse 96 Resp 18 B/P (MAP) 180/69 (106) O2 Delivery Room Air Capillary Refill : Less Than 3 Seconds General Appearance: WD/WN, no apparent distress HEENT: PERRL/EOMI, pharynx normal Neck: non-tender, normal inspection Cardiovascular: normal peripheral pulses, regular rate, rhythm Respiratory: chest non-tender, lungs clear, normal breath sounds, no respiratory distress, no accessory muscle use Neurologic/Psychiatric: alert, oriented x 3 Progress/Results/Core Measures Results/Orders My Orders Orders - PALLAVI JUNIOR Loratadine Tablet (Claritin Tablet) (03/14/18 08:15) Famotidine Tablet (Pepcid Tablet) (03/14/18 08:15) Prednisone Tablet (Deltasone Tablet) (03/14/18 08:15) Vital Signs/I&O 03/14/18 07:59 Temp 98.9 Pulse 96 Resp 18 B/P (MAP) 180/69 (106) O2 Delivery Room Air Blood Pressure Mean: 106 Progress Progress Note : Time: 08:10 Progress Note Were encouraging her to switch her Benadryl to Atarax. We'll put her on another steroid taper over 6 days. No airway compromise presently. We'll also encourage her to start taking Zantac twice a day. Departure Impression Primary Impression: Acute urticaria Disposition: HOME, SELF-CARE Condition: Stable Departure-Patient Inst. Decision time for Depature: 08:11 Referrals: CAREY JEAN-BAPTISTE DO (PCP/Family) Primary Care Physician Patient Instructions: Pavel (DC) Add. Discharge Instructions: Stop using topical Benadryl. 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 production planning supervisor some Zantac and take one tablet twice a day by mouth in addition to the loratadine one tablet daily. Instead of using Benadryl use the hydroxyzine/Atarax as prescribed every 6 hours as needed for itching. If you start to have difficulty breathing or stridor then you should return to the ER nearest you. Follow up with your primary care provider at your scheduled appointment tomorrow. All discharge instructions reviewed with patient and/or family. Voiced understanding. Scripts Prednisone (Prednisone) 20 Mg Tab 40 MG PO DAILY, #10 TAB 0 Refills Prov: PALLAVI JUNIOR 03/14/18 Hydroxyzine HCl (Hydroxyzine HCl) 25 Mg Tablet 25-50 MG PO Q6H PRN for ITCHING for 7 Days, #30 TAB 0 Refills Prov: PALLAVI JUNIOR 03/14/18 Ranitidine HCl (Acid Cook Taco (RANITIDINE)) 150 Mg Tablet 150 MG PO BID for 7 Days, #14 TAB 0 Refills Prov: PALLAVI JUNIOR 03/14/18 PALLAVI JUNIOR Mar 14, 2018 08:13
[2018-03-14] MEDS ORDERED: HYDR-700 PO (08:15)
[2018-03-14] MEDS ORDERED: LORATADINE (CLARITIN) 10 MG TAB PO ONE (08:15)
[2018-03-14] MEDS ORDERED: RANI150T90 PO (08:15)
[2018-03-14] MEDS ORDERED: FAMOTIDINE 20 MG (PEPCID) TABLET PO ONE (08:15)
[2018-03-14] MEDS ORDERED: predniSONE 20 MG TAB PO ONE (08:15)
[2018-03-14] MEDS ORDERED: PRD20T PO (08:16)
[2018-03-14] MEDS ORDERED: PROMETHAZINE 25 MG (PHENERGAN) TAB PO ONE (08:30)
[2018-03-14] MEDS ORDERED: LIDOCAINE 2% VISCOUS 15 ML UDC PO ONE (08:30)
[2018-03-14] MEDS ORDERED: ANTACID SUSP 30 ML UDC (MYLANTA) PO ONE (08:30)
[2018-03-14 08:42] VITALS: BP 180/69
== END 2018-03-14 08:43 | disposition home or self-care (01) ==
LOC: EDUNIT# 07:49 → ER 07:50
DX: L50.9 Urticaria, unspecified (principal); I10 Essential (primary) hypertension; F43.10 Post-traumatic stress disorder, unspecified; F31.9 Bipolar disorder, unspecified; F20.9 Schizophrenia, unspecified; F17.210 Nicotine dependence, cigarettes, uncomplicated; Z88.0 Allergy status to penicillin; Z90.89 Acquired absence of other organs; Z88.2 Allergy status to sulfonamides; Z87.19 Personal history of other diseases of the digestive system; Z98.890 Other specified postprocedural states; Z98.51 Tubal ligation status
CPT/HCPCS: 99283

== ENCOUNTER 2018-03-24 17:58 | Emergency (ER) | payer OTHER, MEDICARE, MEDICAID ==
[~2018-03-24] VITALS: Ht 160 cm; Wt 97.5 kg
[~2018-03-24 17:58] MED LIST changes: +HYDR-700 PO; +PRD20T PO; +RANI150T90 PO
--- OUTSIDE RECORDS SUMMARY | 2018-03-24 18:04 | XMS REPORT | Clinical Summary ---
Author Author [facility] Address Unknown Phone Unavailable Care Team Providers Care Mid Teacher Name Role Phone Provider, Notinsystem_[email or web address] PP Unavailable [...] hyperglycemia, without long-term current use of insulin ([facility]) Blood Glucose Monitoring 1 device by Does not 1 each 0 02/19/20 Active Suppl w/Device apply route 2 (two) times 18 KITIndications: daily. Please dispense Uncontrolled type 2 per pt preference and diabetes mellitus with insurance E11.65 hyperglycemia, without long-term current use of insulin ([facility]) glucose blood test 1 each by Other route 2 100 each 1 02/19/20 Active stripIndications: (two) times daily. Please 18 Uncontrolled type 2 dispense per pt diabetes mellitus with preference and insurance hyperglycemia, without E11.65 long-term current use of insulin ([facility]) lancetsIndications: Use to monitor glucose 200 each 1 02/19/20 Active Uncontrolled type 2 twice daily. Please 18 diabetes mellitus with dispense per pt hyperglycemia, without preference and insurance long-term current use of E11.65 insulin ([facility]) amLODIPine (NORVASC) 5 MG Take [...] days Gastroesophageal Reflux Disease, for 14 days Active Problems Problem Noted [...] History Relation Name Comments Alcohol abuse Brother Timmothy Santana Mental illness Brother Tom bipolar asbergars Mental illness Daughter Deandra bipolar Cardozo Alcohol abuse Father Willie Pits Cancer Father Willie Pits Drug abuse Father Willie Pits Diabetes Mother catrina cabrerank Mental illness Mother catrina sanz bipolar Other Mother catrina sanz obesity Mental illness Son Adventism adhd Relation Name Status Comments Brother Timmothy Alive Santana Brother Tom Alive Daughter Deandra Cardozo Alive Father Willie Pits in prision Mother catrina sanz Alive Son Adventism Alive Social History Tobacco Use Types Packs/Day [...] Glucose 162 (H)Comment: 74 - 106 mg/dL [facility] LOCO NovaMeterFollowed ProtocolRN LABORATORY or notified Narrative Performed At Followed Protocol CARLYLE ADAN RN or notified LABORATORY Performing Organization Address City/State/Zipcode Phone Number [facility] [address] [place] [address] [phone] * Drug Screen (8) Medical (02/17/2018 3:02 PM) Amphetamine Positive (A) Negative Cutoff [facility] Barbiturates Negative Negative Cutoff 200 ng/mL [facility] Benzodiazepines Negative Negative Cutoff 200 ng/mL [facility] Opiates Negative Negative Cutoff 300 ng/mL [facility] PCP Negative Negative Cutoff 25 ng/mL [facility] THC Negative Negative Cutoff 50 ng/mL [facility] MDMA Negative Negative Cutoff 500 ng/mL [facility] Cocaine (Metabolite) Negative Negative Cutoff 300 ng/mL [facility] pH, UA 7.0 5.0 - 8.0 [facility] Specific [place], UA 1.011 1.003 - 1.030 [facility] [id number] Protocol Chain of custody not received [facility] Specimen Urine - Urine, Unspecified Source Narrative Performed At Results not confirmed. May not meet forensic requirements. Confirmation by GC/ MS [place] [facility] available upon request. LABORATORY Performing Organization Address [facility] Phone Number [facility] [address] [place], [place] [phone] * CBC auto differential (02/17/2018 5:44 AM) WBC 9.4 3.5 - 10.5 10E9/L [facility] RBC 4.41 3.90 - 5.03 10E12/L [facility] Hemoglobin 11.9 (L) 12.0 - 15.5 g/dL [facility] Hematocrit 36.6 34.9 - 44.5 % [facility] MCV 83.0 81.6 - 98.3 fL [facility] MCH 27.0 26.0 - 34.0 pg [facility] MCHC 32.5 31.0 - 37.0 g/dL [facility] RDW 16.6 (H) 11.9 - 15.5 % [facility] Platelets 458 (H) 150 - 450 10E9/L [facility] nRBC 0 <=0 10E9/L [facility] Neutrophils % 57.1 40.0 - 75.0 % [facility] Lymphocytes % 29.4 22.0 - 49.0 % [facility] Monocytes % 8.9 2.0 - 9.0 % [facility] Eosinophils % 4.1 <=5.0 % [facility] Basophils % 0.5 0.0 - 2.5 % [facility] Neutrophils Absolute 5.38 1.70 - 7.00 10E9/L [facility] Lymphocytes Absolute 2.78 0.90 - 2.90 10E9/L [facility] Monocytes Absolute 0.84 0.30 - 0.90 10E9/L [facility] Absolute Eosinophils 0.39 0.05 - 0.50 10E9/L [facility] Basophils Absolute 0.05 0.00 - 0.30 10E9/L [facility] % nRBC 0 % [facility] Specimen Blood Performing Organization Address City/[facility]/Zipcode Phone Number [facility] [address] [place] [address] [phone] * TSH (Reflex Free T4 if abnormal) (02/17/2018 5:44 AM) TSH 1.799 0.400 - 4.000 uIU/mL [facility] Specimen Blood Performing Organization Address [facility] Phone Number [facility] [address] [place] [phone] * hCG, serum, qualitative (02/17/2018 5:44 AM) hCG Qual Negative Negative mIU/mL [facility] Specimen Blood Performing Organization Address [facility] Phone Number [facility] [address] [place] [address] [phone] * Hemoglobin A1c (02/17/2018 5:44 AM) Hemoglobin A1C 7.6 (H) <5.7 % [facility] Specimen Blood Narrative Performed At [place] [employer] recommendations are as follows: [facility] Normal - A1c less than 5.7% LABORATORY Prediabetes - A1c 5.7 - 6.4% Diabetes - A1c 6.5% or greater Performing Organization Address [facility] Phone Number [facility] [address] [place] [phone] * Lipid panel (02/17/2018 5:44 AM) Cholesterol 186 <=200 mg/dL [facility] Triglycerides 286 (H) 0 - 149 mg/dL [facility] HDL 32 (L) 40 - 90 mg/dL [facility] LDL Cholesterol 97 mg/dL [facility] Non-HDL Cholesterol 154 (H) 0 - 129 mg/dL [facility] Specimen Blood Narrative Performed At [facility] GUIDLINES FOR LDL: [facility] Optimal: <100 mg/dL LABORATORY Near Optimal:100-129 mg/dL Borderline High: 130-159 mg/dL High:160-189 mg/dL Very High: >=190 mg/dL Performing Organization Address [facility] Phone Number [facility] [address] [place] [address] [phone] * Comprehensive metabolic panel (02/17/2018 5:44 AM) Sodium 139 136 - 145 mmol/L [facility] Potassium 3.7 3.6 - 4.9 mmol/L [facility] Chloride 101 99 - 111 mmol/L [facility] CO2 30 20 - 36 mmol/L [facility] Anion Gap 8 [facility] Glucose 139 (H) 74 - 106 mg/dL [facility] Total Protein 5.9 (L) 6.4 - 8.3 g/dL [facility] Albumin 3.5 3.4 - 4.8 g/dL [facility] Calcium 9.0 8.7 - 10.5 mg/dL [facility] BUN, Bld 14 6 - 20 mg/dL [facility] Creatinine 0.58 0.40 - 1.10 mg/dL [facility] eGFR >59 >59 mL/min [facility] Total Bilirubin <0.3 0.0 - 1.2 mg/dL [facility] Alkaline Phosphatase 66 29 - 122 U/L [facility] ALT 21 10 - 46 U/L [facility] AST 25 16 - 37 U/L [facility] Specimen Blood Performing Organization Address City/State/Zipcode Phone Number [facility] [address] [place], [place] [address] [phone] from Last 3 Months
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
[2018-03-24 18:08] VITALS: BP 147/92
--- OUTSIDE RECORDS SUMMARY | 2018-03-24 18:08 | XMS REPORT | Continuity of Care Document ---
Author Author [facility] Organization [facility] Address Unknown Phone Unavailable Allergies Active [...] SULFA (SULFONAMIDE ANTIBIOTICS) UNKNOWN UNKNOWN Yes Penicillins [id number] Drug Allergy Unknown N/A 07/01/2016 Yes Sulfa (Sulfonamide Antibiotics) [id number] Drug Allergy Unknown N/A 2015 Yes lisinopril [id number] Drug Allergy Severe N/A 10/27/2017 Yes LISINOPRIL 82423 DRUG INGREDI High Anaphylaxis 02/16/2018 Yes PENICILLINS [...] OF RECTUM AND ANUS 06/15/2015 JOSE GRAVES [id number] Abdominal Pain 06/15/2015 JOSE GRAVES 12 Back Pain 06/15/2015 ELY, JOSE L A [id number] Abdominal Pain 06/15/2015 ELY, JOSE L A 12 Back Pain 06/15/2015 ELY, JOSE L A [id number] Abdominal Pain 06/15/2015 ELY, JOSE L A 12 Back Pain 06/15/2015 ELY, JOSE L A [id number] Abdominal Pain 06/15/2015 ELY, JOSE L A 12 Back Pain 06/15/2015 ELY, JOSE L A [id number] Abdominal Pain 06/15/2015 ELY, JOSE L A 12 Back Pain 06/15/2015 ELY, JOSE L A [id number] Abdominal Pain 06/15/2015 ELY, JOSE L A [...] cardiovascular disorders 02/26/2017 ANNIE BOLANOS Z79.899 Other long-term (current) drug therapy 04/08/2017 SAMARA MACARIO MD G89.11 ACUTE PAIN DUE TO TRAUMA 04/08/2017 SAMARA MACARIO MD S93.601A UNSPECIFIED SPRAIN OF RIGHT FOOT, INITIAL ENCOUNTE 04/08/2017 SAMARA MACARIO MD Y92.[address] [facility] [address] IN [facility] NON-[facility] (PRIVATE) RESIDEUT 04/08/2017 SAMARA MACARIO MD Y93.89 ACTIVITY, OTHER [...] OF PREG, CHLDBR 06/04/2017 GARCIA, PETER J EDUCATION AND TRAINING COORDINATOR Ot Z90.89 ACQUIRED ABSENCE OF OTHER ORGANS 06/04/2017 INOCENCIO GARCIA EDUCATION AND TRAINING COORDINATOR Ot Z98.51 TUBAL LIGATION STATUS 08/15/2017 NELIDA [...] Z90.89 ACQUIRED ABSENCE OF OTHER ORGANS 08/17/2017 ENLIDA SANABRIA MD Ot Z98.51 TUBAL LIGATION STATUS [...] OTHER SPECIFIED FACTORS, INI 08/26/2017 INOCENCIO GARCIA EDUCATION AND TRAINING COORDINATOR Ot Z87.59 PERSONAL HISTORY OF COMP OF PREG, CHLDBR 08/26/2017 INOCENCIO GARCIA EDUCATION AND TRAINING COORDINATOR Ot Z88.0 ALLERGY STATUS TO PENICILLIN 08/26/2017 INOCENCIO GARCIA EDUCATION AND TRAINING COORDINATOR Ot Z88.2 ALLERGY STATUS TO SULFONAMIDES STATUS [...] Ot I10 ESSENTIAL (PRIMARY) HYPERTENSION 09/18/2017 PALLAVI JUNIRO MD Ot R10.9 UNSPECIFIED ABDOMINAL PAIN 09/18/2017 [...] I10 ESSENTIAL (PRIMARY) HYPERTENSION 10/27/2017 VERONICA TORRES PULLEY MAINTAINER Ot Z03.89 ENCNTR FOR OBS FOR OTH SUSPECTED DISEASE 10/27/2017 VERONICA TORRES PULLEY MAINTAINER Ot Z87.59 PERSONAL HISTORY OF COMP OF PREG, CHLDBR 10/27/2017 VERONICA TORRES PULLEY MAINTAINER Ot Z88.0 ALLERGY STATUS TO PENICILLIN 10/27/2017 VERONICA TORRES PULLEY MAINTAINER Ot Z88.2 ALLERGY STATUS TO SULFONAMIDES STATUS 10/27/2017 VERONICA TORRES PULLEY MAINTAINER Ot Z88.8 ALLERGY STATUS TO OTH DRUG/MEDS/BIOL SUB 10/27/2017 VERONICA TORRES PULLEY MAINTAINER Ot Z90.89 ACQUIRED ABSENCE OF OTHER ORGANS [...] Ot Z98.51 TUBAL LIGATION STATUS 01/08/2018 ESTIVEN SQUIRES, CAREY Richard Ot R68.84 JAW PAIN 02/19/2018 [...] in childhood 02/19/2018 NIA ANDRADE Z79.899 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 construction 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) drug therapy 02/19/2018 NIA ANDRADE Z86.010 Personal history of colonic polyps 02/19/2018 NIA ANDRADE Z86.32 Personal history of gestational diabetes 02/19/2018 NIA ANDRADE Z91.5 Personal history of self-harm 02/27/2018 MELISSA MARROQUIN Ot F20.9 SCHIZOPHRENIA, UNSPECIFIED 02/27/2018 BERNMELISSA IVORY Ot F31.9 BIPOLAR DISORDER, UNSPECIFIED 02/27/2018 BERNMELISSA IVORY Ot F43.10 POST-TRAUMATIC STRESS DISORDER, UNSPECIF 02/27/2018 MELISSA MARROQUIN Ot H66.91 OTITIS MEDIA, UNSPECIFIED, RIGHT EAR 02/27/2018 MAICOL MARROQUINIS Ot H92.01 OTALGIA, RIGHT EAR 02/27/2018 LOPEZ MELISSA Ot I10 ESSENTIAL (PRIMARY) HYPERTENSION 02/27/2018 MAICOL MARROQUINIS Ot J42 UNSPECIFIED CHRONIC BRONCHITIS 02/27/2018 MAICOL MARROQUINIS Ot Z87.19 PERSONAL HISTORY OF OTHER DISEASES OF TH 02/27/2018 MAICOL MARROQUINIS Ot Z88.0 ALLERGY STATUS TO PENICILLIN 02/27/2018 LOPEZ MELISSA Ot Z88.2 ALLERGY STATUS TO SULFONAMIDES STATUS 02/27/2018 LOPEZ MELISSA Ot Z88.8 ALLERGY STATUS TO OTH DRUG/MEDS/BIOL SUB 02/27/2018 LOPEZ MELISSA Ot Z90.89 ACQUIRED ABSENCE OF OTHER ORGANS 02/27/2018 MAICOL MARROQUINIS Ot Z98.51 TUBAL LIGATION STATUS 02/27/2018 LOPEZ MELISSA Ot Z98.890 OTHER SPECIFIED POSTPROCEDURAL STATES 03/02/2018 MAICOL MARROQUINIS Ot F20.9 SCHIZOPHRENIA, UNSPECIFIED 03/02/2018 MAICOL MARROQUINIS Ot F31.9 BIPOLAR DISORDER, UNSPECIFIED 03/02/2018 MAICOL MARROQUINIS Ot F43.10 POST-TRAUMATIC STRESS DISORDER, UNSPECIF 03/02/2018 MAICOL MARROQUINIS Ot H66.91 OTITIS MEDIA, UNSPECIFIED, RIGHT EAR 03/02/2018 MAICOL MARROQUINIS Ot H92.01 OTALGIA, RIGHT EAR 03/02/2018 LOPEZ MELISSA Ot I10 ESSENTIAL (PRIMARY) HYPERTENSION 03/02/2018 MAICOL MARROQUINIS Ot J42 UNSPECIFIED CHRONIC BRONCHITIS 03/02/2018 MAICOL MARROQUINIS Ot Z87.19 PERSONAL HISTORY OF OTHER DISEASES OF 03/02/2018 MAICOL MARROQUINIS Ot Z88.0 ALLERGY STATUS TO PENICILLIN 03/02/2018 LOPEZ MELISSA Ot Z88.2 ALLERGY STATUS TO SULFONAMIDES STATUS 03/02/2018 MAICOL MARROQUINIS Ot Z88.8 ALLERGY STATUS TO OTH DRUG/MEDS/BIOL SUB 03/02/2018 LOPEZ MELISSA Ot Z90.89 ACQUIRED ABSENCE OF OTHER ORGANS 03/02/2018 LOPEZ MELISSA Ot Z98.51 TUBAL LIGATION STATUS 03/02/2018 MAICOL MARROQUINIS Ot Z98.890 OTHER SPECIFIED POSTPROCEDURAL STATES 03/08/2018 CAREY JEAN-BAPTISTE DO Ot R68.84 JAW PAIN 03/08/2018 CAREY JEAN-BAPTISTE DO Ot F19.90 OTHER PSYCHOACTIVE SUBSTANCE USE, UNSPEC 03/08/2018 CAREY JEAN-BAPTISTE DO Ot R01.1 CARDIAC MURMUR, UNSPECIFIED 03/08/2018 MELISSA MARROQUIN Ot F20.9 SCHIZOPHRENIA, UNSPECIFIED 03/08/2018 MELISSA MARROQUIN Ot F31.9 BIPOLAR DISORDER, UNSPECIFIED 03/08/2018 MELISSA MARROQUIN Ot F43.10 POST-TRAUMATIC STRESS DISORDER, UNSPECIF 03/08/2018 MAICOL MARROQUINIS Ot H60.91 UNSPECIFIED OTITIS EXTERNA, RIGHT EAR 03/08/2018 LOPEZ MELISSA Ot H92.01 OTALGIA, RIGHT EAR 03/08/2018 LOPEZ MELISSA Ot I10 ESSENTIAL (PRIMARY) HYPERTENSION 03/08/2018 LOPEZ MELISSA Ot J42 UNSPECIFIED CHRONIC BRONCHITIS 03/08/2018 LOPEZ MELISSA Ot Z87.19 PERSONAL HISTORY OF OTHER DISEASES OF 03/08/2018 MELISSA MARROQUIN Ot Z88.0 ALLERGY STATUS TO PENICILLIN 03/08/2018 MAICOL MARROQUINIS Ot Z88.2 ALLERGY STATUS TO SULFONAMIDES STATUS 03/08/2018 MAICOL MARROQUINIS Ot Z88.8 ALLERGY STATUS TO OTH DRUG/MEDS/BIOL SUB 03/08/2018 MAICOL MARROQUINIS Ot Z90.89 ACQUIRED ABSENCE OF OTHER ORGANS 03/08/2018 MAICOL MARROQUINIS Ot Z98.51 TUBAL LIGATION STATUS 03/10/2018 MELISSA MARROQUIN Ot F20.9 SCHIZOPHRENIA, UNSPECIFIED 03/10/2018 MELISSA MARROQUIN Ot F31.9 BIPOLAR DISORDER, UNSPECIFIED 03/10/2018 MAICOL MARROQUINIS Ot F43.10 POST-TRAUMATIC STRESS DISORDER, UNSPECIF 03/10/2018 MAICOL MARROQUINIS Ot H60.91 UNSPECIFIED OTITIS EXTERNA, RIGHT EAR 03/10/2018 LOPEZ MELISSA Ot H92.01 OTALGIA, RIGHT EAR 03/10/2018 LOPEZ MELISSA Ot I10 ESSENTIAL (PRIMARY) HYPERTENSION 03/10/2018 LOPEZ MELISSA Ot J42 UNSPECIFIED CHRONIC BRONCHITIS 03/10/2018 MAICOL MARROQUINIS Ot Z87.19 PERSONAL HISTORY OF OTHER DISEASES OF 03/10/2018 LOPEZ MELISSA Ot Z88.0 ALLERGY STATUS TO PENICILLIN 03/10/2018 BERNDIANELYS MELISSA Ot Z88.2 ALLERGY STATUS TO SULFONAMIDES STATUS 03/10/2018 BERNDIANELYS MELISSA Ot Z88.8 ALLERGY STATUS TO OTH DRUG/MEDS/BIOL SUB 03/10/2018 BERNMAICOL IVORYIS Ot Z90.89 ACQUIRED ABSENCE OF OTHER ORGANS 03/10/2018 BERNMAICOL IVORYIS Ot Z98.51 TUBAL LIGATION STATUS 03/11/2018 ESTIVEN SQUIRES CAREY Richard Ot R68.84 JAW PAIN 03/11/2018 JACKELINLENBILL CAREY Richard Ot F19.90 OTHER PSYCHOACTIVE SUBSTANCE USE, UNSPEC 03/11/2018 ESTIVEN SQUIRES CAREY Richard Ot R01.1 CARDIAC MURMUR, UNSPECIFIED 03/11/2018 NELIDA SANABRIA MD Ot L50.9 URTICARIA, UNSPECIFIED 03/15/2018 NELIDA SANABRIA MD Ot L50.9 URTICARIA, UNSPECIFIED 03/15/2018 ESTIVEN SQUIRES CAREY Richard Ot E11.9 TYPE 2 DIABETES MELLITUS WITHOUT COMPLIC 03/15/2018 ESTIVEN SQUIRES CAREY Richard Ot F31.9 BIPOLAR DISORDER, UNSPECIFIED 03/15/2018 ESTIVEN SQUIRES, CAREY Jose Manuel Ot I10 ESSENTIAL (PRIMARY) HYPERTENSION 03/16/2018 VERNON LORENZO, PALLAVI Vega Ot F17.210 NICOTINE DEPENDENCE, CIGARETTES, UNCOMPL 03/16/2018 VERNON LORENZO, PALLAVI Vega Ot F20.9 SCHIZOPHRENIA, UNSPECIFIED 03/16/2018 PALLAVI JUNIOR MD Ot F31.9 BIPOLAR DISORDER, UNSPECIFIED 03/16/2018 PALLAVI JUNIOR MD Ot F43.10 POST-TRAUMATIC STRESS DISORDER, UNSPECIF 03/16/2018 PALLAVI JUNIOR MD Ot I10 ESSENTIAL (PRIMARY) HYPERTENSION 03/16/2018 PALLAVI JUNIOR MD Ot L50.9 URTICARIA, UNSPECIFIED 03/16/2018 PALLAVI JUNIOR MD Ot Z87.19 PERSONAL HISTORY OF OTHER DISEASES OF TH 03/16/2018 PALLAVI JUNIOR MD Ot Z88.0 ALLERGY STATUS TO PENICILLIN 03/16/2018 PALLAVI JUNIOR MD Ot Z88.2 ALLERGY STATUS TO SULFONAMIDES STATUS 03/16/2018 PALLAVI JUNIOR MD Ot Z90.89 ACQUIRED ABSENCE OF OTHER ORGANS 03/16/2018 VERNON LORENZO, PALLAVI Vega Ot Z98.51 TUBAL LIGATION STATUS 03/16/2018 VERNON LORENZO, PALLAVI Vega Ot Z98.890 OTHER SPECIFIED POSTPROCEDURAL STATES 03/17/2018 DANIELE LORENZO, NELIDA Justin Ot L50.9 URTICARIA, UNSPECIFIED Procedures Code Description Performed By Performed On [...] 06/15/2015 UA URINALYSIS AUTOMATED W MICROSCOPY 06/15/2015 42628 DRAWING AND HANDLING - VENOUS 02/26/2017 45339 COMPREHENSIVE PANEL 02/26/2017 27300 LIPID PROFILE 02/26/2017 86592 CBC/HEMOGRAM WITH 02/26/2017 41495 RPR, SEND OUT 02/26/2017 46037 HIV-1 AND HIV-2 02/26/2017 23332 HEPATITIS C ANTIBODY, SEND OUT 02/26/2017 39531 HEPATITIS B SURFACE, SEND OUT 02/26/2017 70636 NEW COMPREHENSIVE 02/26/2017 Results Test Result Range [...] NRG Manual blood basophils/100 leukocytes 0 % NRG Blood erythrocyte morphology finding identification NORMAL NRG [...] urinalysis with reflex to culture NO NRG Automated blood complete blood count (hemogram) panel - 03/11/18 08:05 Blood leukocytes automated count (number/volume) 9.9 10*3/uL 4.3-11.0 Blood erythrocytes automated count (number/volume) 4.89 10*6/uL 4.35-5.85 Venous blood hemoglobin measurement (mass/volume) 13.1 g/dL 11.5-16.0 Blood hematocrit (volume fraction) 39 % 35-52 Automated erythrocyte mean corpuscular volume 81 [foz_us] 80-99 Automated erythrocyte mean corpuscular hemoglobin (mass per erythrocyte) 27 pg 25-34 Automated erythrocyte mean corpuscular hemoglobin concentration measurement ( mass/volume) 33 g/dL 32-36 Automated erythrocyte distribution width ratio 17.5 % 10.0-14.5 Automated blood platelet count (count/volume) 539 10*3/uL 130-400 Automated blood platelet mean volume measurement 10.0 [foz_us] 7.4-10.4 Comprehensive metabolic panel - 03/11/18 08:05 Serum or plasma sodium measurement (moles/volume) 136 mmol/L 135-145 Serum or plasma potassium measurement (moles/volume) 4.0 mmol/L 3.6-5.0 Serum or plasma chloride measurement (moles/volume) 100 mmol/L 98-107 Carbon dioxide 26 mmol/L 21-32 Serum or plasma anion gap determination (moles/volume) 10 mmol/L 5-14 Serum or plasma urea nitrogen measurement (mass/volume) 15 mg/dL 7-18 Serum or plasma creatinine measurement (mass/volume) 0.84 mg/dL 0.60-1.30 Serum or plasma urea nitrogen/creatinine mass ratio 18 NRG Serum or plasma creatinine measurement with calculation of estimated glomerular filtration rate > NRG Serum or plasma glucose measurement (mass/volume) 187 mg/dL 70-105 Serum or plasma calcium measurement (mass/volume) 9.2 mg/dL 8.5-10.1 Serum or plasma total bilirubin measurement (mass/volume) 0.4 mg/dL 0.1-1.0 Serum or plasma alkaline phosphatase measurement (enzymatic activity/volume) 60 U/L 40-136 Serum or plasma aspartate aminotransferase measurement (enzymatic activity/ volume) 13 U/L 5-34 Serum or plasma alanine aminotransferase measurement (enzymatic activity/volume ) 13 U/L 0-55 Serum or plasma protein measurement (mass/volume) 7.1 g/dL 6.4-8.2 Serum or plasma albumin measurement (mass/volume) 3.9 g/dL 3.2-4.5 CALCIUM CORRECTED 9.3 mg/dL 8.5-10.1 Lipid 1996 panel - 03/11/18 08:05 Serum or plasma triglyceride measurement (mass/volume) 401 mg/dL <150 Serum or plasma cholesterol measurement (mass/volume) 205 mg/dL < 200 Serum or plasma cholesterol in HDL measurement (mass/volume) 42 mg/ dL 40-60 Cholesterol in LDL [mass/volume] in serum or plasma by direct assay 111 mg/dL 1-129 Serum or plasma cholesterol in VLDL measurement (mass/volume) 80 mg/ dL 5-40 Hemoglobin A1c - 03/11/18 08:05 Blood hemoglobin A1C measurement (mass/volume) 7.8 % 4.0- 5.6 MEAN BLOOD GLUCOSE 177 % <=126 Encounters ACCT No. Visit Date/Time Discharge Status Pt. Type Provider Facility Loc./Unit Complaint [id number] 01/29/2017 13:16:09 01/29/2017 23:59:59 CLS Outpatient Heraclio Juarez [id number] 08/27/2012 13:20:00 Document Registration [id number] 01/28/2018 16:00:00 01/28/2018 23:59:59 CLS Outpatient APOLINAR HIDALGO LAC [facility] [id number] 02/16/2018 22:15:00 02/19/2018 13:13:00 DIS Inpatient NIA ANDRADE [facility] [id number] 04/08/2017 15:26:00 04/08/2017 16:08:00 DIS Emergency AMIRAH LORENZO, SAMARA Mendez [facility] ED [id number] 07/27/2016 07:05:00 Document Registration [id number] 03/14/2018 07:50:00 03/14/2018 08:43:00 DIS Outpatient VERNON LORENZO, PALLAVI Vega [facility] ER HIVES ALL OVER BODY [id number] 03/11/2018 07:53:00 03/11/2018 23:59:59 CLS Outpatient CAREY JEAN-BAPTISTE DO [facility] LAB DIABETES [id number] 03/11/2018 21:32:00 03/11/2018 23:31:00 DIS Emergency INOCENCIO GARCIA APRN [facility] ER ALLERGIC REACTION,FEELS THROAT IS SWELLING SHUT [id number] 03/11/2018 07:30:00 03/11/2018 07:58:00 DIS Outpatient NELIDA SANABRIA MD [facility] ER HIVES [id number] 03/08/2018 15:22:00 03/08/2018 15:51:00 DIS Emergency MELISSA MARROQUIN [facility] ER RT EAR PAIN,ALL OVER BLOATING [id number] 02/27/2018 21:50:00 02/27/2018 22:33:00 DIS Emergency MELISSA MARROQUIN [facility] ER EARACHE [id number] 01/21/2018 11:46:00 01/21/2018 23:59:59 CLS Outpatient CAREY JEAN-BAPTISTE DO [facility] CARD HISTORY OF IV DRUG USE [id number] 01/07/2018 09:40:00 01/07/2018 23:59:59 CLS Outpatient CAREY JEAN-BAPTISTE DO [facility] RAD PAIN IN RIGHT SINUS [id number] 01/07/2018 11:57:00 01/07/2018 13:39:00 DIS Emergency KT MARTÍNEZ MD [facility] ER CHEST PAIN [id number] 11/14/2017 21:14:00 11/14/2017 23:13:00 DIS Emergency INOCENCIO GARCIA APRN [facility] ER BP HIGH,ABD PAIN [id number] 10/27/2017 19:40:00 10/27/2017 20:34:00 DIS Emergency VERONICA TORRES [facility] ER BUG IN R EAR [id number] 09/16/2017 13:27:00 09/16/2017 15:03:00 DIS Emergency PALLAVI JUNIOR MD [facility] ER THROAT SWELLING [id number] 09/15/2017 14:55:00 09/15/2017 23:59:59 CLS Preadmit SHANDA SWIFT PULLEY MAINTAINER [facility] RAD ABDOMINAL BLOATING R14.0 [id number] 09/14/2017 13:10:00 09/14/2017 17:02:00 DIS Emergency PADMA MEDLEY [facility] ER STOMACH BLOATED [id number] 08/24/2017 12:51:00 08/24/2017 14:35:00 DIS Emergency INOCENCIO GARCIA APRN [facility] ER STITCHES COME OUT FROM ALTERCATION THURSDAY [id number] 08/15/2017 12:41:00 08/15/2017 13:43:00 DIS Emergency NELIDA SANABRIA MD [facility] ER R LEG POSS BLOOD CLOT IN CALF [id number] 06/01/2017 11:12:00 06/01/2017 13:03:00 DIS Emergency INOCENCIO GARCIA APRN [facility] ER HEADACHES VISION DISTURBANCE [id number] 04/19/2017 18:17:00 04/19/2017 20:35:00 DIS Emergency TINO DE LA PAZ DO [facility] ER FALL OFF CURB/R FOOT PAIN [id number] 08/04/2016 16:10:00 08/04/2016 16:43:00 DIS Emergency TYRA RIVAS DO Nhan [facility] ER GROIN PAIN [id number] 07/01/2016 08:51:00 07/01/2016 11:01:00 DIS Emergency MARCIN WALKER MD [facility] ER ABD PAIN MULTIPLE COMPLAINTS [id number] 02/26/2017 08:44:00 02/26/2017 23:59:59 CLS Outpatient [facility] [id number] 02/26/2017 08:44:00 Document Registration [id number] 06/10/2016 08:06:00 Document Registration [id number] 04/08/2017 15:23:00 04/08/2017 23:59:59 CLS [facility] ED [id number] 02/27/2017 13:12:00 Document Registration [id number] 08/23/2017 02:44:00 08/23/2017 03:40:00 DIS Outpatient Garcia, [facility] ER [id number] 08/23/2017 03:23:27 Document Registration [id number] 06/15/2015 17:50:00 06/15/2015 22:35:00 DIS Emergency JOSE GRAVES [facility] FED [id number] 02/14/2018 17:46:41 Document Registration
== END 2018-03-24 18:46 | disposition left against medical advice (07) ==
LOC: EDUNIT# 17:58 → ER 17:59
DX: I10 Essential (primary) hypertension (principal); F43.10 Post-traumatic stress disorder, unspecified; F31.9 Bipolar disorder, unspecified; R68.84 Jaw pain; R51 Headache; F20.9 Schizophrenia, unspecified; F17.210 Nicotine dependence, cigarettes, uncomplicated; Z98.890 Other specified postprocedural states; Z87.19 Personal history of other diseases of the digestive system; Z98.51 Tubal ligation status; Z90.89 Acquired absence of other organs; V19.9XXA Pedal cyclist (driver) (passenger) injured in unspecified traffic accident, initial encounter
CPT/HCPCS: 99281

== ENCOUNTER → 2018-04-13 | Outpatient (CLI) | payer MEDICARE, MEDICAID ==
--- NOTE | 2018-04-13 12:53 | Diagnostic Imaging Report ---
Indication: Screening. The current study was also evaluated with a Computer Aided Detection (CAD) system. 3-D tomosynthesis was also performed and reviewed. No prior examinations are available for comparison. Findings: There are scattered fibroglandular densities bilaterally. There is no dominant mass, spiculated lesion or suspicious calcification identified. Skin, nipples and axilla are unremarkable. Impression: Category one negative ACR BI-RADS Category 1: Negative. Result letter will be mailed to the patient. Note: At least 10% of breast cancer is not imaged by mammography. Dictated by: Dictated on workstation # [id number]
== END ==
LOC: RAD 08:40
PROVIDERS: ATTEND Nurse Practitioner Primary Care
DX: Z12.31 Encounter for screening mammogram for malignant neoplasm of breast (principal)
CPT/HCPCS: 77067

== ENCOUNTER 2018-05-06 21:31 | Emergency (ER) | payer MEDICARE, MEDICAID ==
[~2018-05-06] VITALS: Ht 162.6 cm; Wt 99.8 kg
--- NOTE | 2018-05-06 22:54 | ED EENT ---
History of Present Illness General Chief Complaint: Ear Problems Stated Complaint: EARACHE Source: patient, spouse Exam Limitations: no limitations History of Present Illness Date Seen by Provider: May 06, 2018 Time Seen by Provider: 22:41 Initial Comments Patient presents to ER by private conveyance with chief complaint she's having pain without discharge her right ear canal. She says she had an outer ear infection about a month or 2 ago. She feels the same. No fevers chills cough or dental pain. Her symptoms started yesterday. Allergies and Home Medications Allergies Coded Allergies: lisinopril (Verified Allergy, Severe, 10/27/17) Penicillins (Verified Allergy, Unknown, 07/01/16) Sulfa (Sulfonamide Antibiotics) (Verified Allergy, Unknown, 07/01/16) Home Medications Cefdinir 300 Mg Capsule, 300 MG PO BID Prescribed by: MELISSA MARROQUIN on 02/27/182218 Ciprofloxacin HCl/Dexameth 7.5 Ml Soln, 7.5 ML OT BID 4 drops to to affected ear BID for 10 days. Prescribed by: MELISSA MARROQUIN on 03/08/18 154 Dicyclomine HCl 10 Mg Capsule, 10 MG PO ACHS Prescribed by: INOCENCIO GARCIA on 11/14/17 2302 Epinephrine 0.3 Mg/0.3 Ml Auto.injct, 0.3 MG IJ ONCE PRN Stridor or tongue/throat swelling Prescribed by: PALLAVI JUNIOR on 09/16/17 1450 Hydrochlorothiazide 25 Mg Tablet, 25 MG PO DAILY Prescribed by: PALLAVI JUNIOR on 09/16/17 1450 Hydrochlorothiazide 25 Mg Tablet, 25 MG PO DAILY Prescribed by: INOCENCIO GARCIA on 11/14/17 2302 Hydrochlorothiazide 25 Mg Tablet, 25 MG PO DAILY Prescribed by: MELISSA MARROQUIN on 03/08/18 1542 Hydrocodone Bit/Acetaminophen 1 Tab Tab, 1 EACH PO Q4H PRN for PAIN Prescribed by: MELISSA MARROQUIN on 02/27/18 221 Hydrocodone Bit/Acetaminophen 1 Tab Tab, 1 EACH PO Q4H PRN for PAIN Prescribed by: MELISSA MARROQUIN on 03/08/18 1542 Hydroxyzine HCl 25 Mg Tablet, 25-50 MG PO Q6H PRN for ITCHING Prescribed by: PALLAVI JUNIOR on 03/14/18 0815 Nystatin 15 Gm Cream..g., 1 GM TP BID Prescribed by: INOCENCIO GARCIA on 11/14/172308 Prednisone 20 Mg Tab, 40 MG PO DAILY Prescribed by: PALLAVI JUNIOR on 03/14/18 0816 Ranitidine HCl 150 Mg Tablet, 150 MG PO BID Prescribed by: PALLAVI JUNIOR on 03/14/18 0815 Patient Home Medication List Home Medication List Reviewed: Yes Review of Systems Review of Systems Constitutional: No chills, No fever, No malaise Eyes: Denies Blindness, Denies Blurred Vision Ears: Denies Dizziness; Pain; Denies Bloody Discharge, Denies Clear Discharge, Denies Purulent Discharge Nose: denies clots, denies congestion, denies epistaxis Mouth: denies clots, denies loose teeth Throat: denies pain, denies swelling Respiratory: No cough, No short of breath Past Qvfhxap-Fmwdpq-Paegdn Hx Patient Social History Alcohol Use: Denies Use Recreational Drug Use: No Smoking Status: Current Everyday Smoker Type Used: Cigarettes 2nd Hand Smoke Exposure: Yes Recent Foreign Travel: No Contact w/Someone Who Travel: No Recent Hopitalizations: No Immunizations Up To Date Tetanus Booster (TDap): Unknown PED Vaccines UTD: Yes Seasonal Allergies Seasonal Allergies: Yes Past Medical History Surgeries: Yes ( X 2, D&C) Adenoidectomy, Section, Tonsillectomy, Tubal Ligation Respiratory: Yes Chronic Bronchitis Cardiac: Yes Heart Murmur, Hypertension Neurological: No 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 0oz. 97.189777ar; BMI Method:Stated General Appearance: WD/WN, no apparent distress Eyes: bilateral eye normal inspection, bilateral eye PERRL, bilateral eye EOMI Ears: right ear swelling (canal), right ear tenderness ( canal); left ear canal normal; bilateral ear auricle normal, bilateral ear TM normal Departure Impression Primary Impression: Otitis externa Qualified Codes: H60.391 - Other infective otitis externa, right ear Disposition: 01 HOME, SELF-CARE Condition: Stable Departure-Patient Inst. Decision time for Depature: 22:49 Referrals: CAREY JEAN-BAPTISTE DO (PCP/Family) Primary Care Physician Patient Instructions: Outer Ear Infection (DC) Add. Discharge Instructions: Warm compresses, Tylenol and Motrin for pain. turning machine set up operator the ear drops to start putting them in 2 drops 3 times a day for the next 10 days. All discharge instructions reviewed with patient and/or family. Voiced understanding. Scripts Ciprofloxacin HCl/Dexameth (Ciprodex Otic Suspension) 7.5 Ml Soln 3 DROPS OT TID for 10 Days, #1 EA 0 Refills Prov: PALLAVI JUNIOR 05/06/18 PALLVAI JUNIOR May 06, 2018 22:54
[2018-05-06] MEDS ORDERED: NF-CIPDEC OT (22:55)
[2018-05-06 23:00] VITALS: BP 0/0
[2018-05-06] MEDS ORDERED: KETOROLAC 30 MG/ML VIAL IM ONE (23:00)
== END 2018-05-06 23:00 | disposition home or self-care (01) ==
LOC: EDUNIT# 21:31 → ER 21:33
DX: H60.91 Unspecified otitis externa, right ear (principal); I10 Essential (primary) hypertension; F43.10 Post-traumatic stress disorder, unspecified; F31.9 Bipolar disorder, unspecified; F29 Unspecified psychosis not due to a substance or known physiological condition; F17.210 Nicotine dependence, cigarettes, uncomplicated; Z98.890 Other specified postprocedural states; Z90.89 Acquired absence of other organs; Z87.19 Personal history of other diseases of the digestive system; Z98.51 Tubal ligation status; Z88.0 Allergy status to penicillin; Z88.2 Allergy status to sulfonamides; Z88.8 Allergy status to other drugs, medicaments and biological substances; Z79.52 Long term (current) use of systemic steroids
CPT/HCPCS: 96372; 99282

== ENCOUNTER 2018-06-23 19:05 | Emergency (ER) | payer MEDICARE, MEDICAID ==
[~2018-06-23] VITALS: Ht 160 cm; Wt 99.8 kg
[2018-06-23] MEDS ORDERED: MONT10TA24 (19:19)
[2018-06-23] MEDS ORDERED: AMLO5TAB7 (19:19)
[2018-06-23] MEDS ORDERED: OMEP20CA12 (19:19)
[2018-06-23 19:39] LABS: BASOPHILS % (AUTO) 0 % (0-10); EOSINOPHILS # (AUTO) 0.4 10^3/uL (0.0-0.3); EOSINOPHILS % (AUTO) 2 % (0-10); HEMATOCRIT 41 % (35-52); HEMOGLOBIN 13.6 G/DL (11.5-16.0); LYMPHOCYTES # (AUTO) 2.9 X 10^3 (1.0-4.0); LYMPHOCYTES % (AUTO) 19 % (12-44); MEAN CORPUSCULAR HEMOGLOBIN 26 PG (25-34); MEAN CORPUSCULAR HGB CONC 33 G/DL (32-36); MEAN CORPUSCULAR VOLUME 77 FL (80-99); MEAN PLATELET VOLUME 11.2 FL (7.4-10.4); MONOCYTES # (AUTO) 1.1 X 10^3 (0.0-1.0); MONOCYTES % (AUTO) 7 % (0-12); NEUTROPHILS # (AUTO) 10.4 X 10^3 (1.8-7.8); NEUTROPHILS % (AUTO) 71 % (42-75); PLATELET COUNT 324 10^3/uL (130-400); RED BLOOD COUNT 5.27 10^6/uL (4.35-5.85); RED CELL DISTRIBUTION WIDTH 17.5 % (10.0-14.5); WHITE BLOOD COUNT 14.7 10^3/uL (4.3-11.0)
[2018-06-23 19:40] LABS: BILIRUBIN,URINE NEGATIVE (NEGATIVE); CLARITY,URINE CLEAR; COLOR,URINE YELLOW; GLUCOSE, URINE (UA) 2+ (NEGATIVE); KETONES,URINE 1+ (NEGATIVE); LEUKOCYTE ESTERASE ,URINE NEGATIVE (NEGATIVE); NITRITE,URINE NEGATIVE (NEGATIVE); PH,URINE 5 (5-9); PROTEIN,URINE 2+ (NEGATIVE); UROBILINOGEN,URINE NORMAL (NORMAL)
[2018-06-23 19:47] LABS: RBC,URINE 0-2 /HPF
--- NOTE | 2018-06-23 19:49 | ED Abdominal Pain ---
General Chief Complaint: Abdominal/GI Problems Stated Complaint: V/D Nursing Triage Note: n/v/d right ear pain x3 days. Sepsis Screen: No Definite Risk Source of Information: Patient Exam Limitations: No Limitations History of Present Illness Date Seen by Provider: Jun 23, 2018 Time Seen by Provider: 19:48 Initial Comments Patient is a 47-year-old female who presents to the emergency room with complaints of nausea, vomiting, diarrhea and right ear pain for the past 3 days. She denies any fevers. Reports that she's been unable to keep anything down throughout this time. Allergies and Home Medications Allergies Coded Allergies: lisinopril (Verified Allergy, Severe, 10/27/17) Penicillins (Verified Allergy, Unknown, 07/01/16) Sulfa (Sulfonamide Antibiotics) (Verified Allergy, Unknown, 07/01/16) Home Medications Epinephrine 0.3 Mg/0.3 Ml Auto.injct, 0.3 MG IJ ONCE PRN Stridor or tongue/throat swelling Prescribed by: PALLAVI JUNIOR on 09/16/17 1450 Hydrochlorothiazide 25 Mg Tablet, 25 MG PO DAILY Prescribed by: PALLAVI JUNIOR on 09/16/17 1450 Past Qhszyos-Zsdtdh-Awfpqb Hx Patient Social History Alcohol Use: Denies Use Recreational Drug Use: No Smoking Status: Current Everyday Smoker Type Used: Cigarettes 2nd Hand Smoke Exposure: Yes Recent Foreign Travel: No Contact w/Someone Who Travel: No Recent Infectious Disease Expo: No Recent Hopitalizations: No Immunizations Up To Date Tetanus Booster (TDap): Unknown PED Vaccines UTD: Yes Seasonal Allergies Seasonal Allergies: Yes Past Medical History Surgeries: Yes ( X 2, D&C) Adenoidectomy, Section, Tonsillectomy, Tubal Ligation Respiratory: Yes Chronic Bronchitis Cardiac: Yes Heart Murmur, Hypertension Neurological: No : No Reproductive Disorders: No SIGNAL FITTER History: Tubal Ligation, Menopausal Genitourinary: No Gastrointestinal: Yes Irritable Bowel Musculoskeletal: No Endocrine: No HEENT: No Tonsilitis Cancer: No Psychosocial: Yes PTSD, Bipolar, Schizophrenia Integumentary: No Blood Disorders: No Family Medical History No Pertinent Family Hx Physical Exam Vital Signs Vital Signs - First Documented 06/23/18 19:10 Temp 98.7 Pulse 95 Resp 16 B/P (MAP) 165/93 (117) Pulse Ox 97 O2 Delivery Room Air Capillary Refill : Less Than 3 Seconds Height/Weight/BMI Height: 5'3.00" Weight: 220lbs. 0oz. 99.072614np; BMI Method:Stated Progress/Results/Core Measures Results/Orders Lab Results Laboratory Tests Test 06/23/18 19:25 Range/Units White Blood Count 14.7 H 4.3-11.0 10^3/uL Red Blood Count 5.27 4.35-5.85 10^6/uL Hemoglobin 13.6 11.5-16.0 G/DL Hematocrit 41 35-52 % Mean Corpuscular Volume 77 L 80-99 FL Mean Corpuscular Hemoglobin 26 25-34 PG Mean Corpuscular Hemoglobin Concent 33 32-36 G/DL Red Cell Distribution Width 17.5 H 10.0-14.5 % Platelet Count 324 130-400 10^3/uL Mean Platelet Volume 11.2 H 7.4-10.4 FL Neutrophils (%) (Auto) 71 42-75 % Lymphocytes (%) (Auto) 19 12-44 % Monocytes (%) (Auto) 7 0-12 % Eosinophils (%) (Auto) 2 0-10 % Basophils (%) (Auto) 0 0-10 % Neutrophils # (Auto) 10.4 H 1.8-7.8 X 10^3 Lymphocytes # (Auto) 2.9 1.0-4.0 X 10^3 Monocytes # (Auto) 1.1 H 0.0-1.0 X 10^3 Eosinophils # (Auto) 0.4 H 0.0-0.3 10^3/uL Basophils # (Auto) 0.0 0.0-0.1 10^3/uL Neutrophils % (Manual) 60 % Lymphocytes % (Manual) 23 % Monocytes % (Manual) 11 % Eosinophils % (Manual) 6 % Basophils % (Manual) 0 % Band Neutrophils 0 % Blood Morphology Comment NORMAL Urine Color YELLOW Urine Clarity CLEAR Urine pH 5 5-9 Urine Specific [place] 1.020 1.016-1.022 Urine Protein 2+ H NEGATIVE Urine Glucose (UA) 2+ H NEGATIVE Urine Ketones 1+ H NEGATIVE Urine Nitrite NEGATIVE NEGATIVE Urine Bilirubin NEGATIVE NEGATIVE Urine Urobilinogen NORMAL NORMAL MG/DL Urine Leukocyte Esterase NEGATIVE NEGATIVE Urine RBC (Auto) NEGATIVE NEGATIVE Urine RBC 0-2 /HPF Urine WBC NONE /HPF Urine Squamous Epithelial Cells 2-5 /HPF Urine Crystals NONE /LPF Urine Bacteria NONE /HPF Urine Casts PRESENT /LPF Urine Hyaline Casts 5-10 H /LPF Urine Mucus NEGATIVE /LPF Urine Culture Indicated NO Sodium Level 135 135-145 MMOL/L Potassium Level 3.8 3.6-5.0 MMOL/L Chloride Level 97 L 98-107 MMOL/L Carbon Dioxide Level 20 L 21-32 MMOL/L Anion Gap 18 H 5-14 MMOL/L Blood Urea Nitrogen 10 7-18 MG/DL Creatinine 0.83 0.60-1.30 MG/DL Estimat Glomerular Filtration Rate > 60 BUN/Creatinine Ratio 12 Glucose Level 194 H 70-105 MG/DL Calcium Level 9.5 8.5-10.1 MG/DL Corrected Calcium 9.1 8.5-10.1 MG/DL Total Bilirubin 0.3 0.1-1.0 MG/DL Aspartate Amino Transf (AST/SGOT) 30 5-34 U/L Alanine Aminotransferase (ALT/SGPT) 21 0-55 U/L Alkaline Phosphatase 84 40-136 U/L Total Protein 8.5 H 6.4-8.2 GM/DL Albumin 4.5 3.2-4.5 GM/DL Amylase Level 26 25-125 U/L Lipase 47 8-78 U/L Serum Test, Qualitative NEGATIVE NEGATIVE My Orders Orders - MELISSA MARROQUIN Comprehensive Metabolic Panel (06/23/18 19:09) Lipase (06/23/18 19:09) Amylase (06/23/18 19:09) Ua Culture If Indicated (06/23/18:) Hcg,Qualitative Serum (06/23/18 19:) Saline Lock/Iv-Start (06/23/18 19:09) Cbc With Automated Diff (06/23/18 19:09) Manual Differential (06/23/18 19:25) Ns Iv 1000 Ml (Sodium Chloride 0.9%) (06/23/18 20:00) Ondansetron Injection (Zofran Injectio (06/23/18 20:00) Ns Iv 1000 Ml (Sodium Chloride 0.9%) (06/23/18 21:15) Medications Given in ED Current Medications Medications Dose Ordered Sig/Stephenie Route Start Time Stop Time Status Last Admin Dose Admin Ondansetron HCl 8 mg ONCE ONCE IVP 06/23/18 20:00 06/23/18 20:01 DC 06/23/18 20:13 8 MG Vital Signs/I&O 06/23/18 19:10 Temp 98.7 Pulse 95 Resp 16 B/P (MAP) 165/93 (117) Pulse Ox 97 O2 Delivery Room Air Blood Pressure Mean: 117 Departure Impression Primary Impression: Nausea vomiting and diarrhea Additional Impression: Otitis media Qualified Codes: H66.004 - Acute suppurative otitis media without spontaneous rupture of ear drum, recurrent, right ear Disposition: HOME, SELF-CARE Condition: Stable/Unchanged Departure-Patient Inst. Decision time for Depature: 21:37 Referrals: CAREY JEAN-BAPTISTE DO (PCP/Family) Primary Care Physician Patient Instructions: Diarrhea in Adolescents and Adults, Nausea and Vomiting, Adult Add. Discharge Instructions: Monitor your your blood sugars frequently. Take medications as directed. Clear liquid diet and advance as tolerated. You may use [id number] antidiarrheals such as Imodium. Follow-up with Dr. Jean-Baptiste as scheduled on . Return back to the emergency room for any worsening symptoms or concerns as needed. All discharge instructions reviewed with patient and/or family. Voiced understanding. Scripts Ondansetron HCl (Zofran) 4 Mg Tab 4 MG PO Q4H, #14 TAB Prov: MELISSA MARROQUIN 06/23/18 Cefdinir (Cefdinir) 300 Mg Capsule 300 MG PO BID for 7 Days, #14 CAP Prov: MELISSA MARROQUIN 06/23/18 MELISSA MARROQUIN Jun 23, 2018 19:49
[2018-06-23 19:57] LABS: ALANINE AMINOTRANSFERASE 21 U/L (0-55); ALBUMIN 4.5 GM/DL (3.2-4.5); ALKALINE PHOSPHATASE 84 U/L (40-136); AMYLASE 26 U/L (25-125); BAND NEUTROPHILS 0 %; BILIRUBIN,TOTAL 0.3 MG/DL (0.1-1.0); BUN/CREATININE RATIO 12; CALCIUM 9.5 MG/DL (8.5-10.1); CARBON DIOXIDE 20 MMOL/L (21-32); CHLORIDE 97 MMOL/L (98-107); CREATININE SERUM 0.83 MG/DL (0.60-1.30); GFR ESTIMATED > 60; GLUCOSE 194 MG/DL (70-105); LIPASE 47 U/L (8-78); LYMPHOCYTES % (MANUAL) 23 %; NEUTROPHILS % (MANUAL) 60 %; SODIUM 135 MMOL/L (135-145); TOTAL PROTEIN 8.5 GM/DL (6.4-8.2)
[2018-06-23 19:58] LABS: BASOPHILS % (MANUAL) 0 %; EOSINOPHILS % (MANUAL) 6 %; MONOCYTES % (MANUAL) 11 %; RBC MORPH NORMAL
[2018-06-23 19:59] LABS: POTASSIUM 3.8 MMOL/L (3.6-5.0)
[2018-06-23] MEDS ORDERED: ONDANSETRON 4 MG/2 ML (SDV) Z0FRAN IVP ONE (20:00)
[2018-06-23] MEDS ORDERED: NS IV 1000 ML 1,000 ML IV SCH ×2 (20:00→21:15)
[2018-06-23] MEDS ORDERED: CEFD300C3 PO (21:48)
[2018-06-23] MEDS ORDERED: ONDN4T PO (21:49)
[2018-06-23 22:01] VITALS: BP 141/87
== END 2018-06-23 22:01 | disposition home or self-care (01) ==
LOC: EDUNIT# 19:05 → ER 19:06
DX: R11.2 Nausea with vomiting, unspecified (principal); R19.7 Diarrhea, unspecified; H66.91 Otitis media, unspecified, right ear; F17.210 Nicotine dependence, cigarettes, uncomplicated; J42 Unspecified chronic bronchitis; F43.10 Post-traumatic stress disorder, unspecified; F31.9 Bipolar disorder, unspecified; F20.9 Schizophrenia, unspecified; Z88.8 Allergy status to other drugs, medicaments and biological substances; Z88.0 Allergy status to penicillin; Z88.2 Allergy status to sulfonamides; Z90.89 Acquired absence of other organs; Z98.51 Tubal ligation status
CPT/HCPCS: 36415; 80053; 81000; 82150; 83690; 84703; 85007; 85027; 96361; 96374

== ENCOUNTER 2018-07-04 14:34 | Emergency (ER) | payer MEDICARE, MEDICAID ==
[~2018-07-04] VITALS: Ht 160 cm; Wt 101.2 kg
[~2018-07-04 14:34] MED LIST changes: +AMLO5TAB7; +MONT10TA24; +OMEP20CA12; +ONDN4T PO
--- OUTSIDE RECORDS SUMMARY | 2018-07-04 14:39 | XMS REPORT | Clinical Summary ---
Author Author [facility] Address Unknown Phone Unavailable Care Team Providers Care Etl Lead Name Role Phone Provider, Notinsystem_[email or web address] PP Unavailable [...] hyperglycemia, without long-term current use of insulin ([facility]) Blood Glucose Monitoring 1 device by Does not 1 each 0 02/19/20 Active Suppl w/Device apply route 2 (two) times 18 KITIndications: daily. Please dispense Uncontrolled type 2 per pt preference and diabetes mellitus with insurance E11.65 hyperglycemia, without long-term current use of insulin ([facility]) glucose blood test 1 each by Other route 2 100 each 1 02/19/20 Active stripIndications: (two) times daily. Please 18 Uncontrolled type 2 dispense per pt diabetes mellitus with preference and insurance hyperglycemia, without E11.65 long-term current use of insulin ([facility]) lancetsIndications: Use to monitor glucose 200 each 1 02/19/20 Active Uncontrolled type 2 twice daily. Please 18 diabetes mellitus with dispense per pt hyperglycemia, without preference and insurance long-term current use of E11.65 insulin ([facility]) amLODIPine (NORVASC) 5 MG Take 1 tablet [...] (generalized anxiety disorder) 02/17/2018 Borderline personality disorder (HCC) 02/17/2018 PTSD (post-traumatic stress disorder) 02/17/2018 Stimulant [...] Father [place] Mother catrina [place] Alive Son [employer] Alive Social History Tobacco [...] (1 - Tdap) CERVICAL CANCER SCREENING 1990 Influenza Vaccine (#1) 2018 Diabetic A1C Due 08/20/2018 02/17/2018 Results Not on filefrom Last 3 Months
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
--- OUTSIDE RECORDS SUMMARY | 2018-07-04 14:40 | XMS REPORT ---
Author Author YARON DELGADO [facility] Address [address] [place] [address] Care Team Providers Care Window Installer Name Role Phone YARON DELGADO Unavailable PROBLEMS ALLERGIES ENCOUNTERS IMMUNIZATIONS No Known Immunizations SOCIAL HISTORY No smoking Hx information available REASON FOR VISIT PLAN OF CARE VITAL SIGNS MEDICATIONS RESULTS No Results PROCEDURES INSTRUCTIONS MEDICATIONS ADMINISTERED No Known Medications MEDICAL (GENERAL) HISTORY
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
[2018-07-04] MEDS ORDERED: OLANZapine 5 MG ODT (ZyPREXA ZYDIS) PO ONE (15:00)
[2018-07-04 15:32] LABS: BILIRUBIN,URINE NEGATIVE (NEGATIVE); CLARITY,URINE CLEAR; COLOR,URINE YELLOW; GLUCOSE, URINE (UA) NEGATIVE (NEGATIVE); KETONES,URINE NEGATIVE (NEGATIVE); LEUKOCYTE ESTERASE ,URINE NEGATIVE (NEGATIVE); NITRITE,URINE NEGATIVE (NEGATIVE); PH,URINE 7 (5-9); PROTEIN,URINE NEGATIVE (NEGATIVE); UROBILINOGEN,URINE NORMAL (NORMAL)
[2018-07-04 15:38] LABS: BASOPHILS # (AUTO) 0.1 10^3/uL (0.0-0.1); BASOPHILS % (AUTO) 1 % (0-10); EOSINOPHILS # (AUTO) 0.2 10^3/uL (0.0-0.3); EOSINOPHILS % (AUTO) 2 % (0-10); HEMATOCRIT 42 % (35-52); HEMOGLOBIN 13.5 G/DL (11.5-16.0); LYMPHOCYTES # (AUTO) 2.4 X 10^3 (1.0-4.0); LYMPHOCYTES % (AUTO) 22 % (12-44); MEAN CORPUSCULAR HEMOGLOBIN 26 PG (25-34); MEAN CORPUSCULAR HGB CONC 32 G/DL (32-36); MEAN CORPUSCULAR VOLUME 80 FL (80-99); MEAN PLATELET VOLUME 10.5 FL (7.4-10.4); MONOCYTES # (AUTO) 0.9 X 10^3 (0.0-1.0); MONOCYTES % (AUTO) 8 % (0-12); NEUTROPHILS # (AUTO) 7.4 X 10^3 (1.8-7.8); NEUTROPHILS % (AUTO) 68 % (42-75); PLATELET COUNT 509 10^3/uL (130-400); RED BLOOD COUNT 5.25 10^6/uL (4.35-5.85)
[2018-07-04 15:40] LABS: SQUAMOUS EPITHELIAL CELL,UR RARE /HPF
[2018-07-04 15:46] LABS: ALANINE AMINOTRANSFERASE 14 U/L (0-55); ALBUMIN 4.4 GM/DL (3.2-4.5); ALKALINE PHOSPHATASE 70 U/L (40-136); AMPHETAMINE SCREEN, URINE NEGATIVE (NEGATIVE); BARBITURATE SCREEN URINE NEGATIVE (NEGATIVE); BENZODIAZEPINES SCREEN URINE NEGATIVE (NEGATIVE); BILIRUBIN,TOTAL 0.3 MG/DL (0.1-1.0); BUN/CREATININE RATIO 11; CALCIUM 9.2 MG/DL (8.5-10.1); CANNABINOID SCREEN, URINE NEGATIVE (NEGATIVE); CARBON DIOXIDE 19 MMOL/L (21-32); CHLORIDE 103 MMOL/L (98-107); COCAINE SCREEN URINE NEGATIVE (NEGATIVE); CREATININE SERUM 0.74 MG/DL (0.60-1.30); GFR ESTIMATED > 60; GLUCOSE 136 MG/DL (70-105); METHADONE STAT NEGATIVE (NEGATIVE); METHAMPHETAMINE SCREEN URINE S NEGATIVE (NEGATIVE); OPIATE SCREEN URINE POSITIVE (NEGATIVE); OXYCODONE STAT NEGATIVE (NEGATIVE); POTASSIUM 3.8 MMOL/L (3.6-5.0); PROPOXYPHENE STAT NEGATIVE (NEGATIVE); SODIUM 137 MMOL/L (135-145); TOTAL PROTEIN 8.1 GM/DL (6.4-8.2); TRICYCLIC ANTIDEPRESSANTS SCRE NEGATIVE (NEGATIVE)
[2018-07-04 16:22] LABS: FREE T4 (FREE THYROXINE) 1.09 NG/DL (0.70-1.48)
[2018-07-04] MEDS ORDERED: OLAN10TA4 PO (16:27)
[2018-07-04 16:41] VITALS: BP 194/122
== END 2018-07-04 16:50 | disposition home or self-care (01) ==
LOC: EDUNIT# 14:34 → ER 14:35
DX: F20.9 Schizophrenia, unspecified (principal); I10 Essential (primary) hypertension; F43.10 Post-traumatic stress disorder, unspecified; F31.9 Bipolar disorder, unspecified; Z87.19 Personal history of other diseases of the digestive system; Z88.0 Allergy status to penicillin; Z88.2 Allergy status to sulfonamides; Z88.8 Allergy status to other drugs, medicaments and biological substances; Z77.22 Contact with and (suspected) exposure to environmental tobacco smoke (acute) (chronic); Z98.890 Other specified postprocedural states; Z90.89 Acquired absence of other organs; Z98.51 Tubal ligation status; Z87.09 Personal history of other diseases of the respiratory system
CPT/HCPCS: 36415; 80053; 80306; 81000; 84439; 84443; 84703; 85025; 99283

== ENCOUNTER 2018-08-29 18:37 | Emergency (ER) | payer MEDICARE, MEDICAID ==
[~2018-08-29] VITALS: Ht 160 cm; Wt 104.8 kg
[~2018-08-29 18:37] MED LIST changes: -AMLO5TAB7; +AMLO5TAB9; +OLAN10TA4 PO
--- OUTSIDE RECORDS SUMMARY | 2018-08-29 18:43 | XMS REPORT | Clinical Summary ---
Author Author [facility] Address Unknown Phone Unavailable Care Team Providers Care Extrusion Press Adjuster Name Role Phone Provider, Notinsystem_2 PP Unavailable Allergies Comments Active Allergy Reactions Severity Noted Date Throat closes up Lisinopril Anaphylaxis High 02/16/2018 "It will kill me, I just close up" Penicillins Anaphylaxis High 02/16/2018 Sulfa Antibiotics Hives High 02/16/2018 Medications End Date Status Medication Sig Dispensed Refills Start Date Active metFORMIN (GLUCOPHAGE) Take 1 tablet 30 tablet 1 500 MG tabletIndications: (500 mg 8 Uncontrolled type 2 total) by diabetes mellitus with mouth at hyperglycemia, without bedtime. long-term current use of insulin ([facility]) Active Blood Glucose Monitoring 1 device by 1 each 0 Suppl w/Device Does not 8 KITIndications: apply route 2 Uncontrolled type 2 (two) times diabetes mellitus with daily. Please hyperglycemia, without dispense per long-term current use of pt preference insulin ([facility]) and insurance E11.65 Active glucose blood test 1 each by 100 each 1 stripIndications: Other route 2 8 Uncontrolled type 2 (two) times diabetes mellitus with daily. Please hyperglycemia, without dispense per long-term current use of pt preference insulin ([facility]) and insurance E11.65 Active lancetsIndications: Use to 200 each 1 Uncontrolled type 2 monitor 8 diabetes mellitus with glucose twice hyperglycemia, without daily. Please long-term current use of dispense per insulin ([facility]) pt preference and insurance E11.65 Active amLODIPine (NORVASC) 5 MG Take 1 tablet 30 tablet 0 tabletIndications: (5 mg total) 8 Hypertension, for 14 days by mouth daily. Indications: High Blood Pressure Disorder, for 14 days Active ARIPiprazole (ABILIFY) 5 Take 1 tablet 30 tablet 0 MG tabletIndications: (5 mg total) 8 mood by mouth daily. Indications: mood Active cetirizine (ZYRTEC) 10 MG Take 1 tablet 30 tablet 0 tabletIndications: (10 mg total) 8 Seasonal Allergic by mouth at Rhinitis, for 14 days bedtime. Indications: Hayfever, for 14 days Active dicyclomine (BENTYL) 10 Take 1 60 capsule 0 MG capsuleIndications: capsule (10 8 Irritable Bowel Syndrome, mg total) by for 14 days mouth 4 (four) times daily before meals and nightly. Indications: Irritable Bowel Syndrome, for 14 days Active hydrochlorothiazide Take 1 tablet 30 tablet 0 (HYDRODIURIL) 25 MG (25 mg total) 8 tabletIndications: by mouth Hypertension daily. Indications: High Blood Pressure Disorder Active hydrOXYzine (ATARAX) 25 Take 1 tablet 90 tablet 0 MG tabletIndications: (25 mg total) 8 Anxiety by mouth 3 (three) times daily. Indications: Feeling Anxious Active pantoprazole (PROTONIX) Take 1 tablet 30 tablet 0 40 MG tabletIndications: (40 mg total) 8 Gastroesophageal Reflux by mouth Disease, for 14 days daily. Indications: Gastroesophag eal Reflux Disease, for 14 days Active Problems Problem Noted Date Bipolar II disorder 02/17/2018 CARLOS (generalized anxiety disorder) 02/17/2018 Borderline personality disorder 02/17/2018 PTSD (post-traumatic stress disorder) 02/17/2018 Stimulant use disorder Type 2 diabetes mellitus with other specified complication, without long-term current use of insulin Resolved Problems Problem Noted Date Resolved Date [...] Mother catrina sanz obesity Mental illness Son Orthodoxy adhd Relation Name Status Comments Brother Timmothy Alive Santana Brother Tom Alive Daughter Deandra Cardozo Alive Father Willie [place] Mother catrina sanz Alive Son Orthodoxy Alive Social History Date Tobacco Use Types Packs/Day Years Used Started: 02/16/1982 Current Some Day Smoker Cigarettes 1 Smokeless Tobacco: Never Used Tobacco Cessation: Ready to Quit: No; Counseling Given: No Comments: will order nicotine replacement Alcohol Use Drinks/Week oz/Week Comments No Sex Assigned at Date Recorded Not on file Industry Job Start Date Occupation Not on file Not on file Not on file Travel End Travel History Travel Start No recent travel history available. Last Filed Vital Signs Time Taken Vital Sign Reading 02/19/2018 8:48 AM CDT Blood Pressure 136/87 02/19/2018 8:48 AM CDT Pulse 92 02/19/2018 8:48 AM CDT Temperature 36.2 C (97.1 F) 02/19/2018 8:48 AM CDT Respiratory Rate 20 02/19/2018 8:48 AM CDT Oxygen Saturation 97% - Inhaled Oxygen - Concentration 02/16/2018 10:49 PM CDT Weight 102.1 kg (225 lb) 02/16/2018 10:49 PM CDT Height 160 cm (5' 3") 02/16/2018 10:49 PM CDT Body Mass Index 39.86 Plan of Treatment Health Maintenance Due Date Last Done Comments Annual Wellness Visit 1969 Diabetic Foot Exam 11/27/1979 Ophthalmology Exam 11/27/1979 Varicella Vaccines (1 of 1982 2 - 13+ 2-dose series) DTaP,Tdap,and Td Vaccines 1988 (1 - Tdap) CERVICAL CANCER SCREENING 1990 Influenza Vaccine (#1) 2018 Diabetic A1C Due 08/20/2018 02/17/2018 Results Not on filefrom Last 3 Months Insurance Type Payer Benefit Subscriber ID Effective Phone Address Plan / Dates Group Medicare MEDICARE MEDICARE xxxxxxxxxx 2013- [phone] [address] [facility] [place] [address] KANCARE SUNFLOWER KANCARE 19 xxxxxxxxxxx 2018- [phone] [address] [place] [address] Advance Directives Patient has advance care planning documents, and code status on file. For more information, please contact: [address] [address] Date Inactivated Comments Code Status Date Activated Full Code 02/19/2018 10:47 AM 02/19/2018 10:47 AM Full Code 02/17/2018 2:38 AM
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
[2018-08-29] MEDS ORDERED: FLEET ENEMA ADULT 1 EA BTL PR ONE (19:45)
[2018-08-29] MEDS ORDERED: MILK OF MAGNESIA 400 MG/5 ML 30 ML UDC PO ONE (19:45)
[2018-08-29 19:48] LABS: BILIRUBIN,URINE NEGATIVE (NEGATIVE); CLARITY,URINE CLEAR; COLOR,URINE YELLOW; GLUCOSE, URINE (UA) 4+ (NEGATIVE); KETONES,URINE NEGATIVE (NEGATIVE); LEUKOCYTE ESTERASE ,URINE NEGATIVE (NEGATIVE); NITRITE,URINE NEGATIVE (NEGATIVE); PH,URINE 6 (5-9); PROTEIN,URINE NEGATIVE (NEGATIVE); UROBILINOGEN,URINE NORMAL (NORMAL)
[2018-08-29 20:05] LABS: BACTERIA,URINE NEGATIVE /HPF; SQUAMOUS EPITHELIAL CELL,UR 0-2 /HPF; WBC,URINE RARE /HPF
--- NOTE | 2018-08-29 20:10 | ED GI ---
General Chief Complaint: Abdominal/GI Problems Stated Complaint: NO BM FOR 4 DAYS History of Present Illness Date Seen by Provider: Aug 29, 2018 Time Seen by Provider: 19:40 Initial Comments 47-year-old female presents for no bowel movement 4 days. Patient reports history of intermittent constipation but never to this point. She has been eating a normal diet, including fettuccine with chicken and garlic bread at 4:00 pm today. She takes MiraLAX intermittently. She does not eat fruits and vegetables regularly in her diet but she has increased her water intake. She reports walking for normal daily activities, no other physical activity. Timing/Duration: 3-4 Days Severity/Quality: Moderate Location: Generalized Abdomen Radiation: No Radiation Activities at Onset: None Associated Symptoms: Denies Symptoms Allergies and Home Medications Allergies Coded Allergies: lisinopril (Verified Allergy, Severe, 10/27/17) Penicillins (Verified Allergy, Unknown, 07/01/16) Sulfa (Sulfonamide Antibiotics) (Verified Allergy, Unknown, 07/01/16) Home Medications Cefdinir 300 Mg Capsule, 300 MG PO BID Prescribed by: MELISSA MARROQUIN on 06/23/182147 Epinephrine 0.3 Mg/0.3 Ml Auto.injct, 0.3 MG IJ ONCE PRN Stridor or tongue/throat swelling Prescribed by: PALLAVI JUNIOR on 09/16/17 1450 Hydrochlorothiazide 25 Mg Tablet, 25 MG PO DAILY Prescribed by: PALLAVI JUNIOR on 09/16/17 1450 Olanzapine 10 Mg Tab.rapdis, 10 MG PO DAILY Prescribed by: INOCENCIO GARCIA on 07/04/18 1627 Ondansetron HCl 4 Mg Tab, 4 MG PO Q4H Prescribed by: MELISSA MARROQUIN on 06/23/18 214 Patient Home Medication List Home Medication List Reviewed: Yes Review of Systems Review of Systems Constitutional: no symptoms reported, see HPI Gastrointestinal: See HPI, Constipated; Denies Nausea, Denies Poor Appetite, Denies Poor Fluid Intake, Denies Rectal Bleeding, Denies Vomiting All Other Systems Reviewed Negative Unless Noted: Yes Past Lxreepr-Oemhck-Ilqvtc Hx Past Med/Social Hx: Reviewed Nursing Past Med/Soc Hx Patient Social History Alcohol Use: Denies Use Recreational Drug Use: No Type Used: Cigarettes 2nd Hand Smoke Exposure: Yes Recent Foreign Travel: No Contact w/Someone Who Travel: No Recent Hopitalizations: No Physical Abuse: No Sexual Abuse: No Immunizations Up To Date Tetanus Booster (TDap): Unknown PED Vaccines UTD: Yes Seasonal Allergies Seasonal Allergies: Yes Past Medical History Surgeries: Yes ( X 2, D&C) Adenoidectomy, Section, Tonsillectomy, Tubal Ligation Respiratory: Yes Chronic Bronchitis Cardiac: Yes Heart Murmur, Hypertension Neurological: No Reproductive Disorders: No 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 0oz. 101.481180xj; BMI Method:Stated General Appearance: WD/WN, no apparent distress HEENT: PERRL/EOMI, normal ENT inspection, TMs normal, pharynx normal Neck: non-tender, full range of motion, supple, normal inspection Respiratory: chest non-tender, lungs clear, normal breath sounds Cardiovascular: normal peripheral pulses, regular rate, rhythm Gastrointestinal: normal bowel sounds, non tender, distended; No guarding, No rebound, No tenderness, No hepatomegaly, No spleenomegaly Neurologic/Psychiatric: no motor/sensory deficits, alert, normal mood/affect, oriented x 3 Skin: normal color, warm/dry Progress/Results/Core Measures Results/Orders Lab Results Laboratory Tests Test 08/29/18 19:33 Range/Units Urine Color YELLOW Urine Clarity CLEAR Urine pH 6 5-9 Urine Specific [place] 1.010 L 1.016-1.022 Urine Protein NEGATIVE NEGATIVE Urine Glucose (UA) 4+ H NEGATIVE Urine Ketones NEGATIVE NEGATIVE Urine Nitrite NEGATIVE NEGATIVE Urine Bilirubin NEGATIVE NEGATIVE Urine Urobilinogen NORMAL NORMAL MG/DL Urine Leukocyte Esterase NEGATIVE NEGATIVE Urine RBC (Auto) NEGATIVE NEGATIVE Urine RBC NONE /HPF Urine WBC RARE /HPF Urine Squamous Epithelial Cells 0-2 /HPF Urine Crystals NONE /LPF Urine Bacteria NEGATIVE /HPF Urine Casts NONE /LPF Urine Mucus NEGATIVE /LPF Urine Culture Indicated NO My Orders Orders - VERONICA TORRES Magnesium Hydroxide Oral Susp (Mom Oral (08/29/18 19:45) Na Phos/Na Biphos Enema (Fleet Enema Brian (08/29/18 19:45) Ua Culture If Indicated (08/29/18 19:40) Ct Abdomen/Pelvis Wo (08/29/18 20:12) Metoclopramide Oral Liquid (Reglan Oral (08/29/18 20:42) Medications Given in ED Current Medications Medications Dose Ordered Sig/Stephenie Route Start Time Stop Time Status Last Admin Dose Admin Magnesium Hydroxide 30 ml ONCE ONCE PO 08/29/18 19:45 08/29/18 19:46 DC 08/29/18 20:19 30 ML Sodium Biphosphate/ Sodium Phosphate 1 ea ONCE ONCE CA 08/29/18 19:45 08/29/18 19:46 DC 08/29/18 19:40 1 EA Vital Signs/I&O 08/29/18 08/29/18 19:08 22:52 Temp 96.9 96.9 Pulse 95 78 Resp 17 17 B/P (MAP) 150/88 (108) 152/88 (109) Pulse Ox 98 98 O2 Delivery Room Air Room Air Progress Progress Note : Time: 19:40 Progress Note Patient seen and evaluated, recommended a fleets enema and milk of magnesia. 1950 fleets enema inserted, patient able well. 1999 patient had large bowel movement, reports less discomfort in the lower abdomen that continued distention in the upper abdomen. Will do a CT abdomen and pelvis with oral contrast. 2029 due to recent trauma admissions in the emergency department CT has not been completed yet. The patient reports no further bowel movements, no change in abdominal symptoms. 2199 CT abdomen completed, shows normal appearance of the colon small volume of stool within the colon hepatic steatosis with area of focal sparing, no free air or fluid in the abdomen or pelvis. Appendix within normal limits. Patient reports another large bowel movement and passing flatus. Results of CT discussed with her. Abdomen is nontender, left distention noted, positive bowel sounds 4 quadrants. Patient taking water and ice chips with no nausea or vomiting. Discharge instructions and return precautions reviewed with the patient. Diagnostic Imaging Diagonstic Imaging: CT Plain Films/CT/US/NM/MRI: abdomen, pelvis Comments CT results within normal limits, reading by stat rad Departure Impression Primary Impression: Constipation Qualified Codes: K59.00 - Constipation, unspecified Disposition: HOME, SELF-CARE Condition: Improved Departure-Patient Inst. Decision time for Depature: 22:00 Referrals: CAREY JEAN-BAPTISTE DO (PCP/Family) Primary Care Physician Patient Instructions: Constipation, Adult (DC) Add. Discharge Instructions: MiraLAX 2 capfuls twice daily. Once having stools on a regular basis, decreased to once daily. Docusate 1 tablet twice daily, for stool softener, [id number] Eat 3-4 prunes twice daily. Continue to increase fluid in diet, 16 ounces of water every 2 hours while awake. Follow-up with your primary care provider in 3-5 days, consider referral for colonoscopy if symptoms continue. Return to emergency department for worsening of symptoms, vomiting, fever over 101 , or new problems. All discharge instructions reviewed with patient and/or family. Voiced understanding. Copy Copies To 1: CAREY JEAN-BAPTISTE AMY ARNP Aug 29, 2018 20:10
--- NOTE | 2018-08-29 20:20 | NUR ---
Oral IV contrast finished at this time.
[2018-08-29] MEDS ORDERED: METOCLOPRAMIDE 10MG/10ML ORAL SOL(REGLAN) UDC PO STA (20:42)
[2018-08-29 22:52] VITALS: BP 152/88
--- NOTE | 2018-08-30 07:41 | Diagnostic Imaging Report ---
CLINICAL INDICATION: Patient with constipation x4 days. EXAM: Axial CT scan of the abdomen and pelvis performed without IV contrast. Oral contrast was administered. Coronal and sagittal reformatted images were created. COMPARISON: CT scan of the abdomen and pelvis without contrast dated 11/14/2017. FINDINGS: The visualized lung bases are clear. There are small degenerative spurs involving both hips. There is hypertrophic spurring involving the thoracolumbar spine and facet arthropathy of the lower lumbar spine. Stable geographic areas of high density seen along the falciform ligament and dome of the right lobe of liver and periphery of the right lobe of liver. These findings were also seen on comparison CT scan dated 09/14/2017. Splenomegaly is again seen measuring 22.7 cm in craniocaudal dimension. The spleen is unremarkable. The pancreas and adrenal glands are unremarkable. The gallbladder is decompressed. Both kidneys are unremarkable with no hydronephrosis, stone, or mass. There is no intra-abdominal free air or free fluid. There is a small amount of stool seen throughout the colon. Appendix is unremarkable. The small bowel is unremarkable. The stomach is fluid and debris distended, otherwise unremarkable. There is no evidence of intestinal obstruction. Uterus and adnexal regions are unremarkable. There is no significant intra-abdominal or pelvic lymphadenopathy. The extra-abdominal and extrapelvic soft tissue structures are unremarkable. Multiple phleboliths are seen in the pelvis. IMPRESSION: 1: Stable CT scan of the abdomen and pelvis with no evidence of acute abdominal or pelvic process. 2: Stable geographic areas of increased density seen throughout the liver. These are indeterminate. MRI of the liver with and without IV contrast would better evaluate, if these lesions have not been previously worked up. 3: There is a small amount of stool seen throughout the colon. Dictated by: Dictated on workstation # [id number]
== END 2018-08-29 22:52 | disposition home or self-care (01) ==
LOC: EDUNIT# 18:37 → ER 18:38
DX: K59.00 Constipation, unspecified (principal); I10 Essential (primary) hypertension; K58.9 Irritable bowel syndrome, unspecified; F43.10 Post-traumatic stress disorder, unspecified; F31.9 Bipolar disorder, unspecified; F20.9 Schizophrenia, unspecified; Z88.0 Allergy status to penicillin; Z88.2 Allergy status to sulfonamides; Z88.8 Allergy status to other drugs, medicaments and biological substances; Z77.22 Contact with and (suspected) exposure to environmental tobacco smoke (acute) (chronic); Z98.890 Other specified postprocedural states; Z90.89 Acquired absence of other organs; Z98.51 Tubal ligation status; Z87.09 Personal history of other diseases of the respiratory system
CPT/HCPCS: 74176; 81000

== ENCOUNTER → 2018-09-08 | Outpatient (CLI) | payer MEDICARE, MEDICAID ==
[~2018-09-08] MED LIST changes: +GADOBUTROL 10 MMOL/10 ML (GADAVIST) VIAL IV ONE
[2018-09-08 07:35] LABS: BUN/CREATININE RATIO 20; CREATININE SERUM 0.71 MG/DL (0.60-1.30); GFR ESTIMATED > 60
--- NOTE | 2018-09-08 10:51 | Diagnostic Imaging Report ---
PROCEDURE: MR imaging abdomen with and without contrast. TECHNIQUE: Multiplanar, multisequence MR imaging of the abdomen was performed with and without contrast. INDICATION: Abnormal CT demonstrating areas of hyperdensity in the liver. The study is performed for further evaluation. COMPARISON: Correlation is made with CT study of the abdomen and pelvis performed 08/29/2018. FINDINGS: During in phase and out of phase imaging, there is significant signal drop throughout the liver consistent with hepatic steatosis. The area of hyperdensity noted on recent CT along the falciform ligament fails to demonstrate signal drop and is most consistent with an area of focal sparing. No mass effect at this location is seen. Normal liver vasculature is seen coursing through this region. The second area of hyperdensity noted more inferiorly in the right lobe of the liver on recent CT does show homogeneous increased T2 signal. This lesion is circumscribed. Lesion measures approximately 2.8 cm in diameter. On postcontrast imaging, there is rapid, homogeneous enhancement on arterial and portal venous phase imaging. No definite peripheral nodular enhancement pattern is seen. There is retention of enhancement on delayed imaging, without evidence of washout. No other lesions are identified. The spleen is unremarkable. The pancreas is unremarkable. No adrenal mass is detected. No renal lesion is seen. There is no ascites. Aorta is non-aneurysmal. IMPRESSION: 1. Hepatic steatosis. There is an area of focal fatty sparing along the falciform ligament correlating with the area of hyperdensity noted on recent CT. 2. 2.8 cm circumscribed mass inferior right lobe of the liver. This does have benign features. Enhancement pattern is consistent with either a capillary hemangioma, hepatic adenoma, or focal nodular hyperplasia. Followup CT could be performed to confirm stability. No other significant abnormalities detected. Dictated by: Dictated on workstation # [id number]
== END ==
LOC: RAD 06:44
PROVIDERS: ATTEND Family Medicine
DX: K76.0 Fatty (change of) liver, not elsewhere classified (principal); N28.9 Disorder of kidney and ureter, unspecified
CPT/HCPCS: 36415; 74183; 82565; 84520

== ENCOUNTER 2018-12-06 21:34 | Emergency (ER) | payer MEDICARE, MEDICAID ==
[~2018-12-06] VITALS: Ht 160 cm; Wt 99.3 kg
[~2018-12-06 21:34] MED LIST changes: -GADOBUTROL 10 MMOL/10 ML (GADAVIST) VIAL IV ONE
[2018-12-06 21:55] LABS: BILIRUBIN,URINE NEGATIVE (NEGATIVE); CLARITY,URINE CLEAR; COLOR,URINE YELLOW; GLUCOSE, URINE (UA) 4+ (NEGATIVE); KETONES,URINE NEGATIVE (NEGATIVE); LEUKOCYTE ESTERASE ,URINE NEGATIVE (NEGATIVE); NITRITE,URINE NEGATIVE (NEGATIVE); PH,URINE 5 (5-9); PROTEIN,URINE 1+ (NEGATIVE); UROBILINOGEN,URINE NORMAL (NORMAL)
[2018-12-06 22:02] LABS: BACTERIA,URINE NEGATIVE /HPF
--- NOTE | 2018-12-06 22:22 | ED GU-Female ---
General Chief Complaint: - Urinary Stated Complaint: BURNING PAIN IN GROIN AREA Source: patient Exam Limitations: no limitations History of Present Illness Date Seen by Provider: Dec 06, 2018 Time Seen by Provider: 21:48 Initial Comments 48-year-old female who presents to the emergency room with complaints of burning pain with urination and burning to the outside of her vagina for the past 4 days. She denies abdominal pain or vaginal discharge. Associated Symptoms: denies symptoms Allergies and Home Medications Allergies Coded Allergies: lisinopril (Verified Allergy, Severe, 10/27/17) Penicillins (Verified Allergy, Unknown, 07/01/16) Sulfa (Sulfonamide Antibiotics) (Verified Allergy, Unknown, 07/01/16) Home Medications Cefdinir 300 Mg Capsule, 300 MG PO BID Prescribed by: MELISSA MARROQUIN on 06/23/182147 Epinephrine 0.3 Mg/0.3 Ml Auto.injct, 0.3 MG IJ ONCE PRN Stridor or tongue/throat swelling Prescribed by: PALLAVI JUNIOR on 09/16/17 1450 Hydrochlorothiazide 25 Mg Tablet, 25 MG PO DAILY Prescribed by: PALLAVI JUNIOR on 09/16/17 1450 Olanzapine 10 Mg Tab.rapdis, 10 MG PO DAILY Prescribed by: INOCENCIO GARCIA on 07/04/18 1627 Ondansetron HCl 4 Mg Tab, 4 MG PO Q4H Prescribed by: MELISSA MARROQUIN on 06/23/182148 Patient Home Medication List Home Medication List Reviewed: Yes Review of Systems Review of Systems Constitutional: see HPI; No chills, No fever Genitourinary: see HPI, burning, pain All Other Systemes Reviewed Negative Unless Noted: Yes Past Mbpuoeg-Xppqqt-Fokxpp Hx Past Med/Social Hx: Reviewed Nursing Past Med/Soc Hx Patient Social History Type Used: Cigarettes 2nd Hand Smoke Exposure: Yes Recent Foreign Travel: No Contact w/Someone Who Travel: No Recent Hopitalizations: No Immunizations Up To Date Tetanus Booster (TDap): Unknown PED Vaccines UTD: Yes Seasonal Allergies Seasonal Allergies: Yes Past Medical History Surgeries: Yes ( X 2, D&C) Adenoidectomy, Section, Tonsillectomy, Tubal Ligation Respiratory: Yes Chronic Bronchitis Cardiac: Yes Heart Murmur, Hypertension Neurological: No 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 0oz. 104.059461yk; BMI Method:Stated General Appearance: WD/WN, no apparent distress Cardiovascular: normal peripheral pulses, regular rate, rhythm, no edema, no gallop, no JVD, no murmur Respiratory: chest non-tender, lungs clear, normal breath sounds, no respiratory distress, no accessory muscle use, respiratory distress Genital/Rectal: normal genital exam, normal vaginal exam (exam was assisted by Kinza RN) Pelvic: normal external exam Neurologic/Psychiatric: alert, normal mood/affect, oriented x 3 Skin: normal color, warm/dry Progress/Results/Core Measures Suspected Sepsis SIRS Temperature: Pulse: Respiratory Rate: Blood Pressure / Mean: Results/Orders Lab Results My Orders Vital Signs/I&O Capillary Refill : Departure Impression Primary Impression: Yeast infection Disposition: 01 HOME, SELF-CARE Condition: Stable/Unchanged Departure-Patient Inst. Decision time for Depature: 22:22 Referrals: CAREY JEAN-BAPTISTE DO (PCP/Family) Primary Care Physician Patient Instructions: Yeast Infection (DC) Add. Discharge Instructions: You may use ibuprofen and Tylenol as directed by the bottle for pain relief. Follow-up with your doctor within the next week if no improvement. Return back to the emergency room for worsening symptoms or concerns as needed. All discharge instructions reviewed with patient and/or family. Voiced understanding. MELISSA MARROQUIN Dec 06, 2018 22:22
[2018-12-06] MEDS ORDERED: FLUCONAZOLE 150 MG TABLET (ED ONLY) PO ONE (22:30)
[2018-12-06 22:33] VITALS: BP 135/70
== END 2018-12-06 22:33 | disposition home or self-care (01) ==
LOC: EDUNIT# 21:34 → ER 21:35
DX: B37.9 Candidiasis, unspecified (principal); I10 Essential (primary) hypertension; K58.9 Irritable bowel syndrome, unspecified; F43.10 Post-traumatic stress disorder, unspecified; F31.9 Bipolar disorder, unspecified; F20.9 Schizophrenia, unspecified; Z88.0 Allergy status to penicillin; Z88.2 Allergy status to sulfonamides; Z88.8 Allergy status to other drugs, medicaments and biological substances; Z77.22 Contact with and (suspected) exposure to environmental tobacco smoke (acute) (chronic); Z90.89 Acquired absence of other organs; Z98.51 Tubal ligation status; Z98.890 Other specified postprocedural states
CPT/HCPCS: 81000; 87210; 99284

== ENCOUNTER → 2018-12-21 | Outpatient (CLI) | payer MEDICARE, MEDICAID ==
[2018-12-21 08:33] LABS: HEMOGLOBIN 12.3 G/DL (11.5-16.0); MEAN PLATELET VOLUME 10.7 FL (7.4-10.4); RED CELL DISTRIBUTION WIDTH 20.3 % (10.0-14.5)
[2018-12-21 08:36] LABS: BILIRUBIN,URINE NEGATIVE (NEGATIVE); CLARITY,URINE CLEAR; COLOR,URINE YELLOW; GLUCOSE, URINE (UA) 4+ (NEGATIVE); KETONES,URINE 1+ (NEGATIVE); LEUKOCYTE ESTERASE ,URINE NEGATIVE (NEGATIVE); NITRITE,URINE NEGATIVE (NEGATIVE); PH,URINE 5 (5-9); PROTEIN,URINE 1+ (NEGATIVE); UROBILINOGEN,URINE NORMAL (NORMAL)
[2018-12-21 08:48] LABS: BACTERIA,URINE NEGATIVE /HPF; WBC,URINE RARE /HPF
[2018-12-21 08:56] LABS: ALANINE AMINOTRANSFERASE 19 U/L (0-55); ALKALINE PHOSPHATASE 107 U/L (40-136); BILIRUBIN,TOTAL 0.4 MG/DL (0.1-1.0); BUN/CREATININE RATIO 14; CALCIUM 9.3 MG/DL (8.5-10.1); CARBON DIOXIDE 24 MMOL/L (21-32); CHLORIDE 99 MMOL/L (98-107); CHOLESTEROL 173 MG/DL (< 200); CREATININE SERUM 0.72 MG/DL (0.60-1.30); GFR ESTIMATED > 60; GLUCOSE 266 MG/DL (70-105); HDL CHOLESTEROL 38 MG/DL (40-60); POTASSIUM 3.7 MMOL/L (3.6-5.0); SODIUM 135 MMOL/L (135-145); TOTAL PROTEIN 7.4 GM/DL (6.4-8.2); TRIGLYCERIDES 284 MG/DL (<150); VLDL CHOLESTEROL 57 MG/DL (5-40)
== END ==
LOC: LAB 08:17
PROVIDERS: ATTEND Family Medicine
DX: E11.9 Type 2 diabetes mellitus without complications (principal); E78.5 Hyperlipidemia, unspecified; F31.9 Bipolar disorder, unspecified
CPT/HCPCS: 36415; 80053; 80061; 81000; 83036; 85027

== ENCOUNTER → 2019-05-05 | Outpatient (CLI) | payer MEDICARE, MEDICAID ==
[~2019-05-05] MED LIST changes: -OMEP20CA12; +OMEP20CA13
--- NOTE | 2019-05-05 12:42 | Diagnostic Imaging Report ---
INDICATION: Pain behind the right knee. FINDINGS: Sonographic interrogation of the posterior right knee was performed. There is a fluid-containing mass measuring 4.3 x 0.9 x 2.6 cm, suggestive of a Robbins's cyst. No other abnormality is seen. IMPRESSION: Robbins's cyst. Dictated by: Dictated on workstation # [id number]
== END ==
LOC: RAD 11:08
PROVIDERS: ATTEND Family Medicine
DX: M71.21 Synovial cyst of popliteal space [Baker], right knee (principal); B35.3 Tinea pedis
CPT/HCPCS: 76881; 87220

== ENCOUNTER → 2019-07-04 | Outpatient (CLI) | payer MEDICARE, MEDICAID ==
[2019-07-04 10:48] LABS: BILIRUBIN,URINE NEGATIVE (NEGATIVE); CLARITY,URINE CLEAR; COLOR,URINE YELLOW; GLUCOSE, URINE (UA) NEGATIVE (NEGATIVE); KETONES,URINE NEGATIVE (NEGATIVE); LEUKOCYTE ESTERASE ,URINE NEGATIVE (NEGATIVE); NITRITE,URINE NEGATIVE (NEGATIVE); PROTEIN,URINE NEGATIVE (NEGATIVE)
[2019-07-04 10:57] LABS: BACTERIA,URINE NEGATIVE /HPF
[2019-07-04 11:02] LABS: ALANINE AMINOTRANSFERASE 22 U/L (0-55); ALBUMIN 3.9 GM/DL (3.2-4.5); ALKALINE PHOSPHATASE 79 U/L (40-136); BILIRUBIN,TOTAL 0.5 MG/DL (0.1-1.0); BUN/CREATININE RATIO 14; CARBON DIOXIDE 24 MMOL/L (21-32); CHLORIDE 102 MMOL/L (98-107); CHOLESTEROL 156 MG/DL (< 200); CREATININE SERUM 0.72 MG/DL (0.60-1.30); GFR ESTIMATED > 60; GLUCOSE 141 MG/DL (70-105); HDL CHOLESTEROL 41 MG/DL (40-60); SODIUM 137 MMOL/L (135-145); TOTAL PROTEIN 6.8 GM/DL (6.4-8.2); TRIGLYCERIDES 155 MG/DL (<150); VLDL CHOLESTEROL 31 MG/DL (5-40)
[2019-07-04 11:09] LABS: AMPHETAMINE SCREEN, URINE NEGATIVE (NEGATIVE); BARBITURATE SCREEN URINE NEGATIVE (NEGATIVE); BENZODIAZEPINES SCREEN URINE NEGATIVE (NEGATIVE); CANNABINOID SCREEN, URINE NEGATIVE (NEGATIVE); COCAINE SCREEN URINE NEGATIVE (NEGATIVE); METHADONE STAT NEGATIVE (NEGATIVE); METHAMPHETAMINE SCREEN URINE S NEGATIVE (NEGATIVE); OPIATE SCREEN URINE NEGATIVE (NEGATIVE); OXYCODONE STAT NEGATIVE (NEGATIVE); PROPOXYPHENE STAT NEGATIVE (NEGATIVE); TRICYCLIC ANTIDEPRESSANTS SCRE NEGATIVE (NEGATIVE)
== END ==
LOC: LAB 10:20
PROVIDERS: ATTEND Family Medicine
DX: E11.9 Type 2 diabetes mellitus without complications (principal); Z79.899 Other long term (current) drug therapy
CPT/HCPCS: 36415; 80053; 80061; 80306; 81000; 83036

== ENCOUNTER 2019-07-09 21:21 | Emergency (ER) | payer MEDICARE, MEDICAID ==
--- NOTE | 2019-07-09 23:00 | NUR ---
PT DID NOT PRESENT WHEN CALLED FOR TRIAGE. PT DID NOT NOTIFY OR SIGN OUT WITH REGISTRATION.
[2019-07-10] MEDS ORDERED: DICL25CA4 PO (15:13)
== END 2019-07-09 23:00 | disposition left against medical advice (07) ==
LOC: EDUNIT# 21:21 → ER 21:22
DX: M25.561 Pain in right knee (principal)

== ENCOUNTER 2019-07-10 14:50 | Emergency (ER) | payer MEDICARE, MEDICAID ==
[~2019-07-10] VITALS: Ht 160 cm; Wt 90.7 kg
[2019-07-10] MEDS ORDERED: DICL25CA4 PO (15:13)
--- NOTE | 2019-07-10 15:13 | ED Lower Extremity ---
General Chief Complaint: Lower Extremity Stated Complaint: R KNEE INJ/HX VILA'S CYST Nursing Triage Note: PT TO TRIAGE VIA W/C WITH C/O RIGHT KNEE PAIN STARTING YESTERDAY. PT STATES SHE STEPPED OFF A CURB AND THE BACK OF HER KNEE STARTED HURTING. PT REPORTS SHE IS IN EXTREME PAIN. PT REPORTS SHE HAS A VILA'S CYST AND HAS AN APPT WITH DR ARANDA. PT STATES SHE HAS NOT TAKEN ANYTHING FOR THE PAIN. Nursing Sepsis Screen: No Definite Risk Source: patient Exam Limitations: no limitations History of Present Illness Date Seen by Provider: Jul 10, 2019 Time Seen by Provider: 15:08 Initial Comments To ER with severe right knee pain when she stepped down off a curb yesterday and had sudden onset of pain at "crippled me". She's been unable to bear weight due to the pain. Onset: yesterday Severity: moderate Pain/Injury Location: right knee Method of Injury: fell Modifying Factors: Worse With Movement Allergies and Home Medications Allergies Coded Allergies: lisinopril (Verified Allergy, Severe, 10/27/17) Penicillins (Verified Allergy, Unknown, 07/01/16) Sulfa (Sulfonamide Antibiotics) (Verified Allergy, Unknown, 07/01/16) Home Medications Cefdinir 300 Mg Capsule, 300 MG PO BID Prescribed by: MELISSA MARROQUIN on 06/23/182147 Epinephrine 0.3 Mg/0.3 Ml Auto.injct, 0.3 MG IJ ONCE PRN Stridor or tongue/throat swelling Prescribed by: PALLAVI JUNIOR on 09/16/17 1450 Hydrochlorothiazide 25 Mg Tablet, 25 MG PO DAILY Prescribed by: PALLAVI JUNIOR on 09/16/17 1450 Olanzapine 10 Mg Tab.rapdis, 10 MG PO DAILY Prescribed by: INOCENCIO GARCIA on 07/04/18 1627 Ondansetron HCl 4 Mg Tab, 4 MG PO Q4H Prescribed by: MELISSA MARROQUIN on 06/23/18 214 Patient Home Medication List Home Medication List Reviewed: Yes Review of Systems Constitutional: see HPI EENTM: see HPI Respiratory: no symptoms reported Cardiovascular: no symptoms reported Musculoskeletal: see HPI Skin: no symptoms reported Psychiatric/Neurological: No Symptoms Reported Past Jjrzfsc-Phpfof-Mhfmgx Hx Patient Social History Alcohol Use: Denies Use Recreational Drug Use: No Drug of Choice: COCAINE Smoking Status: Current Everyday Smoker Type Used: Cigarettes 2nd Hand Smoke Exposure: Yes Recent Foreign Travel: No Contact w/Someone Who Travel: No Recent Infectious Disease Expo: No Recent Hopitalizations: No Physical Abuse: No Sexual Abuse: No Mistreated: No Fear: No Immunizations Up To Date Tetanus Booster (TDap): Unknown PED Vaccines UTD: Yes Seasonal Allergies Seasonal Allergies: Yes Past Medical History Surgeries: Yes ( X 2, D&C) Adenoidectomy, Section, Tonsillectomy, Tubal Ligation Respiratory: Yes Chronic Bronchitis Cardiac: Yes Heart Murmur, Hypertension Neurological: No 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 0oz. 99.061312im; 35.00 BMI Method:Stated General Appearance: WD/WN, no apparent distress HEENT: PERRL/EOMI, normal ENT inspection Respiratory: no respiratory distress, no accessory muscle use Hips: bilateral hip non-tender, bilateral hip normal inspection, bilateral hip normal range of motion Legs: bilateral leg non-tender, bilateral leg normal inspection, bilateral leg normal range of motion Knees: right knee other (tender to palpation but without deformity, no palpable effusion no ecchymosis no erythema. She is sitting in a wheelchair, able to extend the leg fully at the knee without assistance.) Progress/Results/Core Measures Results/Orders Vital Signs/I&O 07/10/19 14:57 Temp 36.7 Pulse 91 Resp 20 B/P (MAP) 136/86 (103) O2 Delivery Room Air Blood Pressure Mean: 103 Departure Impression Primary Impression: Internal derangement of right knee Disposition: 01 HOME, SELF-CARE Condition: Stable Departure-Patient Inst. Decision time for Depature: 15:12 Referrals: CAREY JEAN-BAPTISTE DO (PCP/Family) Primary Care Physician Patient Instructions: Internal Derangement of the Knee (DC) Add. Discharge Instructions: 1. Call Dr. Dr. Jean-Baptiste tomorrow to make an appointment to be seen for follow-up. Use crutches as needed for pain with weightbearing in the meantime. When you're able to bear weight without pain the new can stop using the crutches. If symptoms persist you may benefit from MRI All discharge instructions reviewed with patient and/or family. Voiced understanding. Scripts Diclofenac Potassium (Zipsor) 25 Mg Capsule 25 MG PO QID, #30 CAP Prov: INOCENCIO GARCIA PROGRAM SCHEDULER 07/10/19 INOCENCIO GARCIA APRN Jul 10, 2019 15:13
[2019-07-10] MEDS ORDERED: KETOROLAC 60 MG/2 ML VIAL IM ONE (15:15)
--- NOTE | 2019-07-10 15:40 | Diagnostic Imaging Report ---
INDICATION: Pain. COMPARISON: None available. TECHNIQUE: Three radiographs of the right knee dated July 10, 2019. FINDINGS: No acute fracture or dislocation. No destructive osseous process. Joint spaces are well maintained. No joint effusion. No suspicious radiopaque foreign body. IMPRESSION: No acute osseous abnormality. Dictated by: Dictated on workstation # [id number]
[2019-07-10 15:50] VITALS: BP 150/71
== END 2019-07-10 15:50 | disposition home or self-care (01) ==
LOC: EDUNIT# 14:50 → ER 14:52
DX: M23.91 Unspecified internal derangement of right knee (principal); I10 Essential (primary) hypertension; K58.9 Irritable bowel syndrome, unspecified; F43.10 Post-traumatic stress disorder, unspecified; F31.9 Bipolar disorder, unspecified; F20.9 Schizophrenia, unspecified; F17.210 Nicotine dependence, cigarettes, uncomplicated; Z90.89 Acquired absence of other organs; Z98.51 Tubal ligation status; Z88.0 Allergy status to penicillin; Z88.2 Allergy status to sulfonamides; Z88.8 Allergy status to other drugs, medicaments and biological substances; X50.9XXA Other and unspecified overexertion or strenuous movements or postures, initial encounter
CPT/HCPCS: 73562; 96372

== ENCOUNTER → 2019-07-18 | Outpatient (CLI) | payer MEDICARE, MEDICAID ==
[~2019-07-18] MED LIST changes: +DICL25CA4 PO; -LISI1TAB10 PO; +LISI1TAB26 PO; +OMEP-280; -OMEP20CA13
--- NOTE | 2019-07-18 15:51 | Diagnostic Imaging Report ---
INDICATION: Fall with left ankle pain. TIME OF EXAM: 03:31 p.m. FINDINGS: Three views of the left ankle were obtained. Alignment is normal. Ankle mortise is well maintained. Talar dome is smooth. There are well-corticated osseous densities adjacent to both the medial and lateral malleoli consistent with old fracture. No acute fracture is seen. There is a large plantar calcaneal spur. IMPRESSION: Chronic changes. No acute bony abnormality is detected. Dictated by: Dictated on workstation # [id number]
== END ==
LOC: RAD 14:42
PROVIDERS: ATTEND Family Medicine
DX: M25.572 Pain in left ankle and joints of left foot (principal); W19.XXXA Unspecified fall, initial encounter
CPT/HCPCS: 73610